=== PATIENT | male | born 1970 | race American Indian/Alaskan Native ===

== ENCOUNTER 2018-12-10 07:59 | Inpatient (IN) | payer OTHER ==
[2018-12-10] MEDS ORDERED: BABY ASPIRIN PO ONE (08:28)
[2018-12-10] MEDS ORDERED: NORCO 5/325 PO ONE (08:28)
--- NOTE | 2018-12-10 08:28 | Emergency Department Report ---
<PHILIPP MORIN A - Last Filed: 12/10/18 11:23> ED General Adult HPI - General Chief complaint: Extremity Problem,Nontraumatic Stated complaint: (R) LEG PAIN,NUMB FOOT Time Seen by Provider: 12/10/18 08:17 Source: patient Mode of arrival: Ambulatory Limitations: No Limitations - History of Present Illness Initial comments: Mr. Guaman is a pleasant 48-year-old -[place] male who comes to the ER this morning complaining of bilateral lower extremity pain but right worse than left. He also states he has some numbness and paresthesias of the lower extremity. He noticed the symptoms around 6:30 this morning. He states that he does have intermittent pain but is never this bad. Patient is ambulatory but with a limp on the right leg on admission. Past medical history hypertension Hyperlipidemia Known peripheral artery disease Patient has been being worked up by [facility]. He was sent to get dye study but his insurance would not approve it because the cost was higher than competitors. Sodium is short, he has told him he had to find somewhere else to get the studies done. This has delayed because procedures. Past surgical history none Home medications losartan statin patient states that he was never prescribed a blood thinner or aspirin. Patient does smoke and drinks occasional alcohol Primary care physician is Dr. RIVERA Location: lower extremity Severity scale (0 -10): 6 Quality: aching Consistency: constant Improves with: none Worsens with: none Associated Symptoms: denies other symptoms - Related Data Allergies Allergy/AdvReac Type Severity Reaction Status Date / Time No Known Allergies Allergy Verified 12/10/18 07:59 ED Review of Systems Comment: All other systems reviewed and negative Constitutional: denies: chills Eyes: denies: eye pain ENT: denies: throat pain Respiratory: denies: see HPI Cardiovascular: denies: palpitations Endocrine: denies: flushing Gastrointestinal: denies: abdominal pain Genitourinary: denies: urgency Musculoskeletal: as per HPI. denies: back pain Skin: denies: lesions Neurological: denies: headache Psychiatric: denies: anxiety Hematological/Lymphatic: denies: easy bleeding ED Past Medical Hx - Past Medical History Hx Hypertension: Yes Additional medical history: PAD, HPLD - Surgical History Past Surgical History?: No - Family History Family history: no significant, other (MOM AND DAD A/W NO MAJOR MED ISSUES ) - Social History Smoking Status: Current Every Day Smoker Substance Use Type: Alcohol ED Physical Exam - General Limitations: No Limitations General appearance: alert, in no apparent distress - Head Head exam: Present: atraumatic, normocephalic - Eye Eye exam: Present: normal appearance, PERRL, EOMI - ENT ENT exam: Present: mucous membranes moist - Neck Neck exam: Present: normal inspection, full ROM - Respiratory Respiratory exam: Present: normal lung sounds bilaterally - Cardiovascular Cardiovascular Exam: Present: regular rate, normal rhythm - GI/Abdominal GI/Abdominal exam: Present: soft, normal bowel sounds - Rectal Rectal exam: Present: deferred - Extremities Exam Extremities exam: Present: normal inspection - Expanded Lower Extremity Exam Right Neuro vascular tendon exam: Present: pulse deficit, abnormal cap refill, sensory deficit, extremity cold to touch, pallor. Absent: motor deficit, tendon deficit, foot drop Left Neuro vascular tendon exam: Present: pallor. Absent: motor deficit, sensory deficit, tendon deficit, extremity cold to touch - Back Exam Back exam: Present: normal inspection, full ROM - Neurological Exam Neurological exam: Present: alert, oriented X3, CN II-XII intact - Psychiatric Psychiatric exam: Present: normal affect, normal mood - Skin Skin exam: Present: warm, dry ED Course - Reevaluation(s) Reevaluation #1: 12/10/18 11:23 RUE [id number] RLE 159/97-108 LUE 138/86--99 LLE 69/43--51 ED Medical Decision Making - Lab Data Result diagrams: 12/10/18 11:02 - Radiology Data Radiology results: report reviewed, image reviewed MONOPHASIC FLOW WORSE R - Medical Decision Making RLE COOL ON EXAM LLE WARM PALPABLE DP/PT L DOPPLER WEAK FLOW DP L DRY SCALY SKIN B NAILS THICK B R REDDY- TOE PALLOR WHEN COMPARED TO LLE AND PROX RLE PALP FEMORAL RIGHT WEAK POPLIT. RIGHT [facility] HAS BEEN CALLED THEY ARE GOING TO COME AND EVAL PT AND GIVE RECS FOR CARE - Differential Diagnosis RO OCCLUSIVE DZ ED Disposition Clinical Impression: Arterial occlusion Disposition: DC-09 OP ADMIT IP TO THIS HOSP Is pt being admited?: No Does the pt Need Aspirin: No Condition: Stable Instructions: Peripheral Artery Disease (ED) Time of Disposition: 10:45 <JOYCELYN BOURNE - Last Filed: 12/10/18 14:02> ED Review of Systems ROS: Stated complaint: (R) LEG PAIN,NUMB FOOT Other details as noted in HPI ED Course Vital Signs 12/10/18 12/10/18 12/10/18 08:04 11:36 12:33 Temperature 97.8 F Pulse Rate 77 58 L Respiratory 18 18 18 Rate Blood Pressure 139/82 Blood Pressure 124/78 [Left] O2 Sat by Pulse 99 98 Oximetry ED Medical Decision Making - Lab Data Result diagrams: 12/10/18 11:02 12/10/18 11:02 - Radiology Data Patient CTA of the lower extremity shows he has arterial occlusion that is extensive. - Medical Decision Making Patient to be admitted to the hospitalist service. Surgery is present and will consult and likely perform clot removal on Thursday. Critical care attestation.: If time is entered above; I have spent that time in minutes in the direct care of this critically ill patient, excluding procedure time. ED Disposition Is pt being admited?: Yes Does the pt Need Aspirin: No Time of Disposition: 14:02
--- NOTE | 2018-12-10 11:11 | Vascular Lab Report ---
FINAL REPORT EXAM: VL ARTERIAL DUPLEX LE BILAT HISTORY: pad pain TECHNIQUE: Grayscale and color and spectral Doppler ultrasound imaging of the bilateral lower extrem ity arterial system was performed. PRIORS: None. FINDINGS: No areas of complete occlusion. Mild calcified and noncalcified atherosclerotic plaque is seen bilate rally. No aneurysm. Peak systolic velocities in cm/s below and waveform characteristics: Right: EIA: 8 monophasic VBA DEVELOPER: 25 monophasic Prox SFA: 14 monophasic DFA: 16 monophasic Mid SFA: 13 monophasic Dist SFA: 18 monophasic POP: 10 monophasic ART PROFESSOR: 4 monophasic CHRISTA: 6 monophasic DPA: 6 monophasic Left: EIA: 99 monophasic VBA DEVELOPER: 23 monophasic Prox SFA: 33 monophasic DFA: 25 monophasic Mid SFA: 36 monophasic Dist SFA: 23 monophasic POP: 25 monophasic ART PROFESSOR: 18 monophasic CHRISTA: 18 monophasic DPA: 13 monophasic IMPRESSION: Monophasic waveforms throughout and diminished velocities suggests a more proximal stenosis. Moderate bilateral peripheral arterial disease without focal stenosis in the lower extremities.
[2018-12-10 11:13] LABS: Basophils # (Auto) 0.1 K/mm3 (0.0-0.1); Basophils % (Auto) 0.7 % (0.0-1.8); Eosinophils % (Auto) 0.2 % (0.0-4.3); Hematocrit 44.4 % (35.5-45.6); Hemoglobin 15.3 gm/dl (11.8-15.2); Lymphocytes # (Auto) 1.3 K/mm3 (1.2-5.4); Lymphocytes % (Auto) 13.3 % (13.4-35.0); Mean Corpuscular HGB Conc 34 % (32-34); Mean Corpuscular Volume 89 fl (84-94); Monocytes # (Auto) 0.6 K/mm3 (0.0-0.8); Monocytes % (Auto) 6.1 % (0.0-7.3); Platelet Count 230 K/mm3 (140-440); Red Cell Distribution Width 15.3 % (13.2-15.2)
[2018-12-10 11:25] LABS: INR 0.97 (0.87-1.13)
[2018-12-10 11:26] LABS: Partial Thromboplastin Time 28.6 Sec. (24.2-36.6)
[2018-12-10 11:33] LABS: BUN/Creatinine Ratio 10; Blood Urea Nitrogen 8 mg/dL (9-20); Calcium 9.1 mg/dL (8.4-10.2); Hemolysis Index 16
[2018-12-10] MEDS ORDERED: HEPARIN/ 0.45% NACL-25,000 UNIT/500 ML 25,000 UNIT/500 ML BAG ONE (12:34)
[2018-12-10] MEDS: HEPARIN/ 0.45% NACL-25,000 UNIT/500 ML 25,000 UNIT/500 ML BAG IV SCH (13:33)
--- NOTE | 2018-12-10 14:13 | History and Physical Report ---
History of Present Illness Chief complaint: My leg is numb History of present illness: 48 YO Male with Nicotine Dependence, PAD, HLD, HTN presents to ED for evaluation. Pt states that he has experienced Bilateral leg pain, numbness, and weakness over the past 2 weeks with acutely worsening symptoms over the past 12 hours. Pt states that symptoms are worse in his right leg. Pt states that pain is 6/10, constant, worse with ambulation as well as resting. Pt states that he is unable to ambulate and walks with a limp. Pt acknowledges rest pain. Pt transported to [facility] for further care and evaluation. Pt seen and evaluated in ED and found to have RLE Ischemia with suspected arterial occlusion. Pt denies fever, chills, CP, Palpitations, NVD, Erectile Dysfunction, NVD. Vascular surgery consulted. Pt initiated on Heparin drip and admitted to medical floor. Primary care physician is Dr. RIVERA Past History Past Medical History: hypertension, hyperlipidemia, PVD Past Surgical History: No surgical history, Other (reviewed) Social history: single, smoking. denies: alcohol abuse, prescription drug abuse Family history: no significant family history (reviewed) Medications and Allergies Allergies Allergy/AdvReac Type Severity Reaction Status Date / Time No Known Allergies Allergy Verified 12/10/18 07:59 Home Medications Medication Instructions Recorded Confirmed Last Taken Type AtorvaSTATin [Lipitor] 40 mg PO QHS 12/10/18 12/10/18 12/09/18 History Losartan/Hydrochlorothiazide 1 each PO QDAY 12/10/18 12/10/18 12/09/18 History [Hyzaar 100-12.5 TAB] Active Meds: Active Medications Heparin Sodium/Sodium Chloride (Heparin/ 0.45% Nacl-25,000 Unit/500 Ml) 25,000 unit in 500 mls @ 21 mls/hr IV TITR ALESHA; Protocol Last Admin: 12/10/18 13:33 Dose: 1,050 units/hr, 21 mls/hr Documented by: Review of Systems Constitutional: no weight loss, no weight gain, no fever, no chills Ears, nose, mouth and throat: no ear pain, no ear discharge, no tinnitis, no decreased hearing, no nose pain Cardiovascular: no chest pain, no orthopnea, no palpitations, no rapid/irregular heart beat Respiratory: no cough, no cough with sputum, no excessive sputum, no hemoptysis, no shortness of breath Gastrointestinal: no abdominal pain, no nausea, no vomiting, no diarrhea, no constipation Genitourinary Male: no hematuria, no flank pain, no discharge, no urinary frequency Rectal: no pain, no incontinence, no bleeding Musculoskeletal: leg numbness/tingling, no neck stiffness, no neck pain, no shooting arm pain, no arm numbness/tingling, no low back pain Integumentary: no rash, no pruritis, no redness, no sores, no wounds Neurological: no head injury, no transient paralysis, no paralysis, no weakness, no parathesias, no numbness Psychiatric: no anxiety, no memory loss, no change in sleep habits, no sleep disturbances, no insomnia, no hypersomnia Endocrine: no cold intolerance, no heat intolerance, no polyphagia, no excessive thirst, no polydipsia, no polyuria Hematologic/Lymphatic: no easy bruising, no easy bleeding Allergic/Immunologic: no urticaria, no allergic rhinitis Exam - Constitutional Vitals: Temp Pulse Resp BP Pulse Ox 97.8 F 58 L 18 124/78 98 12/10/18 08:04 12/10/18 12:33 12/10/18 12:33 12/10/18 12:33 12/10/18 12:33 General appearance: Present: mild distress - EENT Eyes: Present: PERRL ENT: hearing intact, clear oral mucosa - Neck Neck: Present: supple, normal ROM - Respiratory Respiratory effort: normal Respiratory: bilateral: CTA - Cardiovascular Heart Sounds: Present: S1 & S2. Absent: rub, click - Extremities Extremities: abnormal Extremity abnormal: cyanosis, pulses diminished Peripheral Pulses: abnormal - Abdominal General gastrointestinal: Present: soft, non-tender, non-distended, normal bowel sounds Male genitourinary: Present: normal - Integumentary Integumentary: Present: clear, warm, dry - Musculoskeletal Musculoskeletal: generalized weakness - Psychiatric Psychiatric: appropriate mood/affect, intact judgment & insight - Neurologic Neurologic: CNII-XII intact, moves all extremities Results - Labs CBC & Chem 7: 12/10/18 11:02 12/10/18 11:02 Labs: Abnormal lab results 12/10/18 12/10/18 Range/Units 11:02 11:02 Hgb 15.3 H (11.8-15.2) gm/dl RDW 15.3 H (13.2-15.2) % Lymph % (Auto) 13.3 L (13.4-35.0) % Seg Neutrophils % 79.7 H (40.0-70.0) % Seg Neutrophils # 8.0 H (1.8-7.7) K/mm3 Sodium 133 L (137-145) mmol/L BUN 8 L (9-20) mg/dL Glucose 111 H (75-100) mg/dL Assessment and Plan - Patient Problems (1) Arterial occlusion Current Visit: Yes Status: Acute Plan to address problem: Vascular surgery consulted, heparin drip, pain control, supportive care, BLE Duplex, CTA abdomen. (2) Nicotine dependence Current Visit: Yes Status: Acute Qualifiers: Nicotine product type: cigarettes Substance use status: in withdrawal Qualified Code(s): F17.213 - Nicotine dependence, cigarettes, with withdrawal Plan to address problem: smoking cessation counseling, supportive care. (3) PAD (peripheral artery disease) Current Visit: Yes Status: Acute Plan to address problem: therapeutic anticoagulation with heparin drip, (4) DVT prophylaxis Current Visit: Yes Status: Acute Plan to address problem: heparin drip
[2018-12-10] MEDS ORDERED: ZOFRAN IV PRN (14:16)
[2018-12-10] MEDS ORDERED: PROVENTIL IH PRN (14:16)
[2018-12-10] MEDS ORDERED: TYLENOL PO PRN (14:16)
--- NOTE | 2018-12-10 14:31 | Cat Scan Report ---
FINAL REPORT EXAM: CT ANGIO ABD/FEMORAL ABD AORTA HISTORY: right foot cool, intermittent numbness TECHNIQUE: CTA of the abdomen, pelvis and lower extremities through the toes was performed after the administration of intravenous contrast. Rotating MIPS were included. Reconstructions were included in the coronal and sagittal planes. PRIORS: Lower extremity arterial Doppler from earlier today. FINDINGS: Lower thorax: Calcified bilateral lower lobe granulomas are seen. The visualized portions of the hear t are normal. Liver: The liver is normal in attenuation. No intrahepatic biliary duct dilation. Several focal hyper attenuating lesions are seen within the right hepatic lobe. One lesion measures 5 millimeters on ser ies 2, image 22. The smaller lesion measures 3 millimeters on series 2, image 21. The other lesion me asures 6 millimeters on series 2, image 31. Gallbladder/ biliary system: No cholelithiasis. The common bile duct appears nondilated. Spleen: No splenic lesions are seen. Pancreas: No pancreatic lesions are seen. No pancreatic duct dilation. Kidneys: No renal masses, cysts or hydronephrosis. Adrenal glands: No adrenal masses. Vasculature: There is complete occlusion of the infrarenal abdominal aorta beginning just distal to t he take-off of the inferior mesenteric artery extending to the common, internal and external iliac ar teries. There is reconstitution of flow in the distal internal iliac arteries as well as common femor al arteries. The common femoral arteries are fed from collaterals from the inferior epigastric arteri es. The internal iliac arteries are fed via collaterals from the rectal circulation. Mild calcified a nd noncalcified atherosclerotic plaque is seen within the bilateral lower extremity arterial systems. The distal aspect of the right anterior tibial artery is not well seen, possibly secondary to slow f low versus occlusion. The left lower extremity vessels are patent. There are 2 right renal arteries. The celiac axis, SMA, GURVINDER and renal arteries are patent. Lymph nodes: No enlarged lymph nodes are seen in the abdomen or pelvis. Bowel, mesentery, peritoneum: No bowel obstruction. No free fluid or free air. The visualized portion s of the appendix demonstrate no evidence of inflammation. No colonic diverticulosis. There is submuc osal fat within the transverse and ascending colon. Urinary bladder: No filling defects are seen. Pelvis: The left testicle appears absent. The remainder of the pelvic anatomy appears normal. Abdominal wall: There is a small fat containing umbilical hernia. There is a small fat containing lef t inguinal hernia. Bones: Mild degenerative changes are seen in the spine. Lower extremities: No soft tissue abnormality. Degenerative changes of the right 1st MTP joint are se en. IMPRESSION: 1. 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 2. Occlusion or slow flow within the mid to distal right anterior tibial artery. 3. Nonspecific right hepatic lesions may represent flash fill hemangiomas versus other solid neoplasm s. Consider further evaluation with dedicated hepatic CT or MRI to better characterize these lesions. 4. Submucosal fat in the ascending and transverse colon can be seen in chronic or prior inflammation or infection. Findings were discussed with HUMERA Castellon at 11:25 a.m. PST on 12/10/2018.
--- NOTE | 2018-12-10 14:51 | Consultation ---
History of Present Illness - Reason for Consult Consult date: 12/10/18 left leg ischemia Requesting physician: PHILIPP MORIN - History of Present Illness 48-year-old gentleman that came to ER complaining off right leg numbness and coolness. She is known to our practice and came in recently with complaints of left leg claudication. He had arterial duplex done in our office that showed patent and good flow in the right lower extremity and monophasic flow in the left leg. At this time he came to ER and do the proximal was performed at this time showing decreased flow in the right side also. Vascular surgery was consulted. He was then sent for CT angiogram of aorta was bilateral lower extremity runoff. This showed infrarenal aortic occlusion, thrombosis. Patient was placed on heparin drip. Past History Past Medical History: hypertension, hyperlipidemia, PVD, other (asymptomatic carotid disease) Past Surgical History: No surgical history Social history: smoking (cigars) Family history: no significant family history Medications and Allergies Allergies Allergy/AdvReac Type Severity Reaction Status Date / Time No Known Allergies Allergy Verified 12/10/18 07:59 Active Meds: Active Medications Acetaminophen (Tylenol) 650 mg PO Q4H PRN PRN Reason: Pain MILD(1-3)/Fever >100.5/LUGO Albuterol (Proventil) 2.5 mg IH Q4HRT PRN PRN Reason: Shortness Of Breath Famotidine (Pepcid) 20 mg PO BID ALESHA Heparin Sodium/Sodium Chloride (Heparin/ 0.45% Nacl-25,000 Unit/500 Ml) 25,000 unit in 500 mls @ 21 mls/hr IV TITR AELSHA; Protocol Last Admin: 12/10/18 13:33 Dose: 1,050 units/hr, 21 mls/hr Documented by: Ondansetron HCl (Zofran) 4 mg IV Q8H PRN PRN Reason: Nausea And Vomiting Oxycodone/Acetaminophen (Percocet 5/325) 1 tab PO Q6H PRN PRN Reason: Pain, Moderate (4-6) Sodium Chloride (Sodium Chloride Flush Syringe 10 Ml) 10 ml IV BID ALESHA Sodium Chloride (Sodium Chloride Flush Syringe 10 Ml) 10 ml IV PRN PRN PRN Reason: LINE FLUSH Review of Systems All systems: negative (mentioned in HPI) Exam - Physical Exam Narrative exam: Patient has coolness of the lower part of the right leg. Left leg is warm. Pulses are not palpable distally, no palpable popliteal or femoral pulses. Both feet are sensory and motor intact. - Constitutional Vitals: Temp Pulse Resp BP Pulse Ox 97.8 F 58 L 18 124/78 98 12/10/18 08:04 12/10/18 12:33 12/10/18 12:33 12/10/18 12:33 12/10/18 12:33 Peripheral Pulses: abnormal Results - Labs CBC & Chem 7: 12/10/18 11:02 12/10/18 11:02 Labs: Abnormal lab results 12/10/18 12/10/18 Range/Units 11:02 11:02 Hgb 15.3 H (11.8-15.2) gm/dl RDW 15.3 H (13.2-15.2) % Lymph % (Auto) 13.3 L (13.4-35.0) % Seg Neutrophils % 79.7 H (40.0-70.0) % Seg Neutrophils # 8.0 H (1.8-7.7) K/mm3 Sodium 133 L (137-145) mmol/L BUN 8 L (9-20) mg/dL Glucose 111 H (75-100) mg/dL - Imaging and Cardiology CT scan - abdomen: report reviewed (occlusion of the infrarenal aorta) Assessment and Plan Occlusion/thrombosis of the infrarenal aorta Acute right leg ischemia [place]arton IIa Plan: Anticoagulation with Heparin drip Cardiology consultation in surgical preparation Aortobifemoral bypass risks and benefits discussed with patient in detail
[2018-12-10] MEDS: SODIUM CHLORIDE FLUSH SYRINGE 10 ML IV SCH (22:21)
[2018-12-10] MEDS: PEPCID PO SCH (22:21)
[2018-12-11 05:36] LABS: BUN/Creatinine Ratio 11; Blood Urea Nitrogen 8 mg/dL (9-20); Calcium 8.6 mg/dL (8.4-10.2); Hemolysis Index 7
[2018-12-11] MEDS: SODIUM CHLORIDE FLUSH SYRINGE 10 ML IV SCH ×2 (10:25→21:07)
[2018-12-11] MEDS: PEPCID PO SCH ×2 (10:25→21:07)
[2018-12-11] MEDS: HEPARIN/ 0.45% NACL-25,000 UNIT/500 ML 25,000 UNIT/500 ML BAG IV SCH (13:11)
--- NOTE | 2018-12-11 13:26 | Progress Note ---
Assessment and Plan Assessment and plan: 48-year-old man who presented with bilateral lower extremity pain worse on the right, is also complaining of numbness and paresthesias of both lower extremities. The symptoms began acutely prior to patient's. Hospital course the patient was found to have occlusion/thrombosis of the infrarenal aorta. He has been seen by vascular surgeon. He is currently being anticoagulated with heparin drip, cardiology consultation has been done for cardiac risk stratification and optimization prior to surgery., The patient is planned for aortobifemoral bypass, -Has been counseled about tobacco cessation, nicotine patches as needed Diagnoses Occlusion/thrombosis of the infrarenal aorta Nicotine dependence History Interval history: Review of systems Constitutional: No fevers, no malaise, no joint pains CVS: No chest pain, no orthopnea, no dyspnea on exertion, no pedal edema GI: No abdominal pain, no diarrhea, no vomiting, no constipation Respiratory: No shortness of breath, no wheezing, no coughing Hospitalist Physical - Physical exam Narrative exam: General.: Appears well, no distress, nontoxic HEENT: Moist mucous membranes, extraocular muscles intact, no lymphadenopathy Neck: supple Cardiac: S1-S2 heard Lungs: clear to auscultation bilaterally Abdomen: soft , nontender, nondistended, bowel sounds positive Extremities: No gross edema Skin: no rash or lesions Neurologic: no gross focal deficits Psych: calm, and cooperative - Constitutional Vitals: Temp Pulse Resp BP Pulse Ox 98.2 F 68 15 128/77 97 12/11/18 13:05 12/11/18 13:05 12/11/18 13:05 12/11/18 13:05 12/11/18 13:05 General appearance: Present: mild distress Results - Labs CBC & Chem 7: 12/10/18 11:02 12/11/18 04:40 Labs: Laboratory Last Values WBC 10.0 K/mm3 (4.5-11.0) 12/10/18 11:02 RBC 5.00 M/mm3 (3.65-5.03) 12/10/18 11:02 Hgb 15.3 gm/dl (11.8-15.2) H 12/10/18 11:02 Hct 44.4 % (35.5-45.6) 12/10/18 11:02 MCV 89 fl (84-94) 12/10/18 11:02 MCH 31 pg (28-32) 12/10/18 11:02 MCHC 34 % (32-34) 12/10/18 11:02 RDW 15.3 % (13.2-15.2) H 12/10/18 11:02 Plt Count 230 K/mm3 (140-440) 12/10/18 11:02 Lymph % (Auto) 13.3 % (13.4-35.0) L 12/10/18 11:02 [place] % (Auto) 6.1 % (0.0-7.3) 12/10/18 11:02 Eos % (Auto) 0.2 % (0.0-4.3) 12/10/18 11:02 Baso % (Auto) 0.7 % (0.0-1.8) 12/10/18 11:02 Lymph # 1.3 K/mm3 (1.2-5.4) 12/10/18 11:02 [place] # 0.6 K/mm3 (0.0-0.8) 12/10/18 11:02 Eos # 0.0 K/mm3 (0.0-0.4) 12/10/18 11:02 Baso # 0.1 K/mm3 (0.0-0.1) 12/10/18 11:02 Seg Neutrophils % 79.7 % (40.0-70.0) H 12/10/18 11:02 Seg Neutrophils # 8.0 K/mm3 (1.8-7.7) H 12/10/18 11:02 PT 13.5 Sec. (12.2-14.9) 12/10/18 11:02 INR 0.97 (0.87-1.13) 12/10/18 11:02 APTT 28.6 Sec. (24.2-36.6) 12/10/18 11:02 Heparin Anti-Xa Level 0.39 U.I./ml (0.3-0.7) 12/11/18 04:40 Sodium 137 mmol/L (137-145) 12/11/18 04:40 Potassium 3.6 mmol/L (3.6-5.0) 12/11/18 04:40 Chloride 101.9 mmol/L (98-107) 12/11/18 04:40 Carbon Dioxide 25 mmol/L (22-30) 12/11/18 04:40 Anion Gap 14 mmol/L 12/11/18 04:40 BUN 8 mg/dL (9-20) L 12/11/18 04:40 Creatinine 0.7 mg/dL (0.8-1.5) L 12/11/18 04:40 Estimated GFR > 60 ml/min 12/11/18 04:40 BUN/Creatinine Ratio 11 % 12/11/18 04:40 Glucose 135 mg/dL (75-100) H 12/11/18 04:40 Calcium 8.6 mg/dL (8.4-10.2) 12/11/18 04:40 Nutrition/Malnutrition Assess - Dietary Evaluation Nutrition/Malnutrition Findings: Nutrition Notes Start: 12/11/18 11:02 Freq: Status: Active Protocol: Document 12/11/18 11:03 MARIKA (Rec: 12/11/18 11:03 MARIKA [email or web address]) Nutrition Notes Need for Assessment generated from: forestry scientist Initial or Follow up Brief Note Subjective/Other Information Pt screened for skin risk, however, Alphonso score is 20. Will assess upon further consult or LOS.
--- NOTE | 2018-12-11 15:29 | Progress Note ---
Assessment and Plan 48 year old male with acute limb ischemia improving on heparin drip. Aortobifemoral bypass this upcoming week. Continue heparin drip. Cardiology consult needed prior to ABF. Subjective Date of service: 12/11/18 Interval history: Right foot sensation intact, motor intact, no pain, no rest pain, no wounds, right leg cool. Had pain with loss of sensation which improved. On heparin drip. Nonpalpable bilateral pedal pulses. CTA demonstrates aortic occlusion and bilateral IGLESIA and EIA occlusion. Thombus in the right mid CHRISTA and TP trunk. Objective - Constitutional Vitals: Vital Signs - 12hr 12/11/18 12/11/18 12/11/18 05:51 10:00 13:05 Temperature 98.4 F 98.2 F Pulse Rate 62 68 Respiratory 20 15 Rate Blood Pressure 132/84 128/77 O2 Sat by Pulse 99 99 97 Oximetry General appearance: Present: no acute distress - EENT Eyes: EOM intact ENT: hearing intact - Respiratory Respiratory effort: normal Extremity abnormal: other (see S) - Gastrointestinal General gastrointestinal: Present: soft - Psychiatric Psychiatric: appropriate mood/affect, cooperative - Labs CBC & Chem 7: 12/10/18 11:02 12/11/18 04:40 Labs: Abnormal lab results 12/10/18 12/11/18 Range/Units 20:09 04:40 Heparin Anti-Xa Level 0.27 L (0.3-0.7) U.I./ml BUN 8 L (9-20) mg/dL Creatinine 0.7 L (0.8-1.5) mg/dL Glucose 135 H (75-100) mg/dL Medications & Allergies - Medications Allergies/Adverse Reactions: Allergies No Known Allergies Allergy (Verified 12/10/18 07:59) Home Medications: Home Medications Medication Instructions Recorded Confirmed Last Taken Type AtorvaSTATin [Lipitor] 40 mg PO QHS 12/10/18 12/10/18 12/09/18 History Losartan/Hydrochlorothiazide 1 each PO QDAY 12/10/18 12/10/18 12/09/18 History [Hyzaar 100-12.5 TAB] Active Medications: Generic Name Dose Route Start Last Admin Trade Name Freq PRN Reason Stop Dose Admin Acetaminophen 650 mg 12/10/18 14:16 Tylenol PO Q4H PRN Pain MILD(1-3)/Fever >100.5/LUGO Albuterol 2.5 mg 12/10/18 14:16 Proventil IH Q4HRT PRN Shortness Of Breath Famotidine 20 mg 12/10/18 22:00 12/11/18 10:25 Pepcid PO 20 mg BID ALESHA Administration Heparin Sodium/Sodium Chloride 25,000 unit in 500 mls @ 21 mls/hr 12/10/18 13:00 12/11/18 13:11 Heparin/ 0.45% Nacl-25,000 Unit/500 Ml IV 1,100 units/hr TITR ALESHA 22 mls/hr Administration Protocol 1,050 UNITS/HR Ondansetron HCl 4 mg 12/10/18 14:16 Zofran IV Q8H PRN Nausea And Vomiting Oxycodone/Acetaminophen 1 tab 12/10/18 14:16 Percocet 5/325 PO Q6H PRN Pain, Moderate (4-6) Sodium Chloride 10 ml 12/10/18 22:00 12/11/18 10:25 Sodium Chloride Flush Syringe 10 Ml IV 10 ml BID ALESHA Administration Sodium Chloride 10 ml 12/10/18 14:16 Sodium Chloride Flush Syringe 10 Ml IV PRN PRN LINE FLUSH
--- NOTE | 2018-12-11 19:48 | Cat Scan Report ---
FINAL REPORT EXAM: CT ANGIO CHEST HISTORY: aortic thrombus TECHNIQUE: CT chest CT angiogram with reconstructions PRIORS: None. FINDINGS: Central pulmonary vasculature demonstrates no filling defects. No evidence of mediastinal pathologic lymph node enlargement multiple bilateral hilar calcifications noted there are scattered calcified granuloma noted bilaterally. Heart and great vessels are unremarkable. Aorta is normal in caliber. No evidence for aortic dissecti on or thrombosis. No focal pulmonary infiltrate identified. No pleural fluid collection seen. No acute pulmonary abnor mality noted. Visualized portion of the upper abdomen demonstrates no acute change. IMPRESSION: Normal appearance of the thoracic aorta. Evidence for remote granulomatous disease. No acute findings in the chest
[2018-12-12] MEDS: PEPCID PO SCH ×2 (09:55→22:12)
[2018-12-12] MEDS: SODIUM CHLORIDE FLUSH SYRINGE 10 ML IV SCH ×2 (09:55→22:13)
--- NOTE | 2018-12-12 12:02 | Consultation ---
Past History Past Medical History: hypertension, hyperlipidemia, PVD Past Surgical History: No surgical history, Other (reviewed) Social history: single, smoking. denies: alcohol abuse, prescription drug abuse Family history: no significant family history (reviewed) Medications and Allergies Allergies Allergy/AdvReac Type Severity Reaction Status Date / Time No Known Allergies Allergy Verified 12/10/18 07:59 Home Medications Medication Instructions Recorded Confirmed Last Taken Type AtorvaSTATin [Lipitor] 40 mg PO QHS 12/10/18 12/10/18 12/09/18 History Losartan/Hydrochlorothiazide 1 each PO QDAY 12/10/18 12/10/18 12/09/18 History [Hyzaar 100-12.5 TAB] Active Meds: Active Medications Acetaminophen (Tylenol) 650 mg PO Q4H PRN PRN Reason: Pain MILD(1-3)/Fever >100.5/LUGO Albuterol (Proventil) 2.5 mg IH Q4HRT PRN PRN Reason: Shortness Of Breath Famotidine (Pepcid) 20 mg PO BID [facility] Last Admin: 12/12/18 09:55 Dose: 20 mg Documented by: Heparin Sodium/Sodium Chloride (Heparin/ 0.45% Nacl-25,000 Unit/500 Ml) 25,000 unit in 500 mls @ 21 mls/hr IV TITR [facility]; Protocol Last Titration: 12/12/18 05:49 Dose: 1,100 units/hr, 22 mls/hr Documented by: Ondansetron HCl (Zofran) 4 mg IV Q8H PRN PRN Reason: Nausea And Vomiting Oxycodone/Acetaminophen (Percocet 5/325) 1 tab PO Q6H PRN PRN Reason: Pain, Moderate (4-6) Sodium Chloride (Sodium Chloride Flush Syringe 10 Ml) 10 ml IV BID [facility] [place] Last Admin: 12/12/18 09:55 Dose: 10 ml Documented by: Sodium Chloride (Sodium Chloride Flush Syringe 10 Ml) 10 ml IV PRN PRN PRN Reason: LINE FLUSH Physical Examination Vital Signs Temp Pulse Resp BP Pulse Ox 97.8 F 77 18 139/82 99 12/10/18 08:04 12/10/18 08:04 12/10/18 08:04 12/10/18 08:04 12/10/18 08:04 Results 12/10/18 11:02 12/11/18 04:40 Assessment and Plan full consult dictated thx
--- NOTE | 2018-12-12 13:22 | Progress Note ---
Assessment and Plan Assessment and plan: 48-year-old man who presented with bilateral lower extremity pain worse on the right, is also complaining of numbness and paresthesias of both lower extremities. The symptoms began acutely prior to patient's. Hospital course the patient was found to have occlusion/thrombosis of the infrarenal aorta. He has been seen by vascular surgeon. He is currently being anticoagulated with heparin drip, cardiology consultation has been done for cardiac risk stratification and optimization prior to surgery., The patient is planned for aortobifemoral bypass, -Has been counseled about tobacco cessation, nicotine patches as needed Diagnoses Occlusion/thrombosis of the infrarenal aorta Nicotine dependence htn hld History Interval history: Review of systems Constitutional: No fevers, no malaise, no joint pains CVS: No chest pain, no orthopnea, no dyspnea on exertion, no pedal edema GI: No abdominal pain, no diarrhea, no vomiting, no constipation Respiratory: No shortness of breath, no wheezing, no coughing Hospitalist Physical - Physical exam Narrative exam: General.: Appears well, no distress, nontoxic HEENT: Moist mucous membranes, extraocular muscles intact, no lymphadenopathy Neck: supple Cardiac: S1-S2 heard Lungs: clear to auscultation bilaterally Abdomen: soft , nontender, nondistended, bowel sounds positive Extremities: No gross edema Skin: no rash or lesions Neurologic: no gross focal deficits Psych: calm, and cooperative - Constitutional Vitals: Temp Pulse Resp BP Pulse Ox 98.6 F 71 16 144/87 93 12/12/18 12:21 12/12/18 12:21 12/12/18 12:21 12/12/18 12:21 12/12/18 12:21 General appearance: Present: no acute distress Results - Labs CBC & Chem 7: 12/10/18 11:02 12/11/18 04:40 Labs: Laboratory Last Values WBC 10.0 K/mm3 (4.5-11.0) 12/10/18 11:02 RBC 5.00 M/mm3 (3.65-5.03) 12/10/18 11:02 Hgb 15.3 gm/dl (11.8-15.2) H 12/10/18 11:02 Hct 44.4 % (35.5-45.6) 12/10/18 11:02 MCV 89 fl (84-94) 12/10/18 11:02 MCH 31 pg (28-32) 12/10/18 11:02 MCHC 34 % (32-34) 12/10/18 11:02 RDW 15.3 % (13.2-15.2) H 12/10/18 11:02 Plt Count 230 K/mm3 (140-440) 12/10/18 11:02 Lymph % (Auto) 13.3 % (13.4-35.0) L 12/10/18 11:02 [place] % (Auto) 6.1 % (0.0-7.3) 12/10/18 11:02 Eos % (Auto) 0.2 % (0.0-4.3) 12/10/18 11:02 Baso % (Auto) 0.7 % (0.0-1.8) 12/10/18 11:02 Lymph # 1.3 K/mm3 (1.2-5.4) 12/10/18 11:02 [place] # 0.6 K/mm3 (0.0-0.8) 12/10/18 11:02 Eos # 0.0 K/mm3 (0.0-0.4) 12/10/18 11:02 Baso # 0.1 K/mm3 (0.0-0.1) 12/10/18 11:02 Seg Neutrophils % 79.7 % (40.0-70.0) H 12/10/18 11:02 Seg Neutrophils # 8.0 K/mm3 (1.8-7.7) H 12/10/18 11:02 PT 13.5 Sec. (12.2-14.9) 12/10/18 11:02 INR 0.97 (0.87-1.13) 12/10/18 11:02 APTT 28.6 Sec. (24.2-36.6) 12/10/18 11:02 Heparin Anti-Xa Level 0.44 U.I./ml (0.3-0.7) 12/12/18 03:25 Sodium 137 mmol/L (137-145) 12/11/18 04:40 Potassium 3.6 mmol/L (3.6-5.0) 12/11/18 04:40 Chloride 101.9 mmol/L (98-107) 12/11/18 04:40 Carbon Dioxide 25 mmol/L (22-30) 12/11/18 04:40 Anion Gap 14 mmol/L 12/11/18 04:40 BUN 8 mg/dL (9-20) L 12/11/18 04:40 Creatinine 0.7 mg/dL (0.8-1.5) L 12/11/18 04:40 Estimated GFR > 60 ml/min 12/11/18 04:40 BUN/Creatinine Ratio 11 % 12/11/18 04:40 Glucose 135 mg/dL (75-100) H 12/11/18 04:40 Calcium 8.6 mg/dL (8.4-10.2) 12/11/18 04:40 Nutrition/Malnutrition Assess - Dietary Evaluation Nutrition/Malnutrition Findings: Nutrition Notes Start: 12/11/18 11:02 Freq: Status: Active Protocol: Document 12/11/18 11:03 MARIKA (Rec: 12/11/18 11:03 MARIKA [id number]) Nutrition Notes Need for Assessment generated from: seismographer Initial or Follow up Brief Note Subjective/Other Information Pt screened for skin risk, however, Alphonso score is 20. Will assess upon further consult or LOS.
[2018-12-12] MEDS: HEPARIN/ 0.45% NACL-25,000 UNIT/500 ML 25,000 UNIT/500 ML BAG IV SCH (13:27)
[2018-12-12] MEDS: ASPIRIN PO SCH (14:59)
--- NOTE | 2018-12-12 15:11 | Consultation ---
CARDIOLOGY CONSULTATION REFERRING PHYSICIAN: Madhu Pan MD REASON FOR CONSULTATION: Advice and opinion regarding preoperative risk stratification. HISTORY OF PRESENT ILLNESS: The patient is a pleasant 48-year-old -[place] gentleman with a history of tobacco abuse, peripheral arterial disease, hyperlipidemia, hypertension, presents with bilateral leg pain, happened worse over the last 2 weeks. Denies any chest pain. Does have shortness of breath from time to time. No syncope or presyncope. PRIMARY CARE PHYSICIAN: ____ seen on the 3rd floor. Denies any syncope or presyncope. He has not had a cardiac workup in years. PAST MEDICAL HISTORY: As aforementioned. Inpatient and outpatient medications reviewed. REVIEW OF SYSTEMS: As per HPI. He denies any leg pain today, feels better overall. PHYSICAL EXAMINATION: GENERAL: Tele reveals sinus rhythm in the 60's and 70's. VITAL SIGNS: Blood pressure is 130/80, he is afebrile. O2 sats 98% on room air. HEENT: Sclerae are icteric. NECK: Supple, no masses, no JVD. CHEST: Clear to auscultation bilaterally. Good air movement. CARDIOVASCULAR: Regular S1, S2. ABDOMEN: Soft, nontender, nondistended. Normoactive bowel sounds in 4 quadrants. No mass or bruits. EXTREMITIES: No cyanosis, clubbing, edema. Good peripheral pulses. SKIN: Intact. No rashes. LABORATORY DATA: BMP is normal. CBC is unremarkable. Coags are normal. The patient is on a heparin drip. Abdominal CTA from 12/10/2018 reveals complete occlusion of the mid to distal aorta, common iliac arteries. Reconstitution of flow distally, likely represented a chronic finding. His EKG reveals sinus bradycardia, right bundle branch block, nonspecific ST-T wave changes. PLAN: At this point, given his history of multivessel vascular disease, aortic, iliac and carotid, tobacco abuse, abnormal EKG, sedentary lifestyle. We will proceed with cardiac workup in anticipation of significant aortic surgery. Check echocardiogram and a nuclear stress test. Telemetry has been unremarkable. Add antiplatelet therapy with aspirin and Heparin therapy. We will follow along with you. Thank you for this consultation. JOB# [id number] SBM/NTS
--- NOTE | 2018-12-12 17:33 | Progress Note ---
Assessment and Plan 48 year old male with acute limb ischemia improving on heparin drip. At this time, both legs are warm. Aortobifemoral bypass this upcoming week. Continue heparin drip. Cardiology consult needed prior to ABF. Awaiting clearance. Subjective Date of service: 12/12/18 Interval history: Right foot sensation intact, motor intact, no pain, no rest pain, no wounds. Right leg now warm. Both legs warm. On heparin drip. Nonpalpable bilateral pedal pulses. CTA demonstrates aortic occlusion and bilateral IGLESIA and EIA occlusion. Thombus in the right mid CHRISTA and TP trunk. Objective - Constitutional Vitals: Vital Signs - 12hr 12/12/18 12/12/18 12/12/18 05:43 09:38 10:00 Temperature 98.8 F Pulse Rate 56 L Pulse Rate [ 74 Apical] Respiratory 18 Rate Blood Pressure 132/85 O2 Sat by Pulse 99 96 Oximetry 12/12/18 12/12/18 12:21 16:47 Temperature 98.6 F 98.9 F Pulse Rate 71 78 Pulse Rate [ Apical] Respiratory 16 16 Rate Blood Pressure 144/87 133/88 O2 Sat by Pulse 93 98 Oximetry General appearance: Present: no acute distress - EENT Eyes: EOM intact ENT: hearing intact - Respiratory Respiratory effort: normal Extremities: abnormal (see subjective) - Gastrointestinal General gastrointestinal: Present: soft - Psychiatric Psychiatric: appropriate mood/affect, cooperative - Labs CBC & Chem 7: 12/10/18 11:02 12/11/18 04:40 Medications & Allergies - Medications Allergies/Adverse Reactions: Allergies No Known Allergies Allergy (Verified 12/10/18 07:59) Home Medications: Home Medications Medication Instructions Recorded Confirmed Last Taken Type AtorvaSTATin [Lipitor] 40 mg PO QHS 12/10/18 12/10/18 12/09/18 History Losartan/Hydrochlorothiazide 1 each PO QDAY 12/10/18 12/10/18 12/09/18 History [Hyzaar 100-12.5 TAB] Active Medications: Generic Name Dose Route Start Last Admin Trade Name Freq PRN Reason Stop Dose Admin Acetaminophen 650 mg 12/10/18 14:16 Tylenol PO Q4H PRN Pain MILD(1-3)/Fever >100.5/LUGO Albuterol 2.5 mg 12/10/18 14:16 Proventil IH Q4HRT PRN Shortness Of Breath Aspirin 325 mg 12/12/18 14:00 12/12/18 14:59 Aspirin PO 325 mg QDAY ALESHA Administration Famotidine 20 mg 12/10/18 22:00 12/12/18 09:55 Pepcid PO 20 mg BID ALESHA Administration Heparin Sodium/Sodium Chloride 25,000 unit in 500 mls @ 21 mls/hr 12/10/18 13:00 12/12/18 13:27 Heparin/ 0.45% Nacl-25,000 Unit/500 Ml IV 1,100 units/hr TITR ALESHA 22 mls/hr Administration Protocol 1,050 UNITS/HR Ondansetron HCl 4 mg 12/10/18 14:16 Zofran IV Q8H PRN Nausea And Vomiting Oxycodone/Acetaminophen 1 tab 12/10/18 14:16 Percocet 5/325 PO Q6H PRN Pain, Moderate (4-6) Sodium Chloride 10 ml 12/10/18 22:00 12/12/18 09:55 Sodium Chloride Flush Syringe 10 Ml IV 10 ml BID ALESHA Administration Sodium Chloride 10 ml 12/10/18 14:16 Sodium Chloride Flush Syringe 10 Ml IV PRN PRN LINE FLUSH
--- NOTE | 2018-12-13 09:00 | Progress Note ---
Assessment and Plan Assessment and plan: 48-year-old man who presented with bilateral lower extremity pain worse on the right, is also complaining of numbness and paresthesias of both lower extremities. The symptoms began acutely prior to patient's. Hospital course the patient was found to have occlusion/thrombosis of the infrarenal aorta. He has been seen by vascular surgeon. He is currently being anticoagulated with heparin drip, he was seen by cardiology, had echo and stress test which were negative, per cardiology he is optimized for planned vascular surgery, The patient is planned for aortobifemoral bypass, -Has been counseled about tobacco cessation, nicotine patches as needed -optimized meds for chronic conditions Diagnoses Occlusion/thrombosis of the infrarenal aorta Nicotine dependence htn hld History Interval history: Review of systems Constitutional: No fevers, no malaise, no joint pains CVS: No chest pain, no orthopnea, no dyspnea on exertion, no pedal edema GI: No abdominal pain, no diarrhea, no vomiting, no constipation Respiratory: No shortness of breath, no wheezing, no coughing Hospitalist Physical - Physical exam Narrative exam: General.: Appears well, no distress, nontoxic HEENT: Moist mucous membranes, extraocular muscles intact, no lymphadenopathy Neck: supple Cardiac: S1-S2 heard Lungs: clear to auscultation bilaterally Abdomen: soft , nontender, nondistended, bowel sounds positive Extremities: No gross edema Skin: no rash or lesions Neurologic: no gross focal deficits Psych: calm, and cooperative - Constitutional Vitals: Temp Pulse Resp BP Pulse Ox 98.3 F 73 18 139/89 98 12/13/18 05:37 12/13/18 05:37 12/13/18 05:37 12/13/18 05:37 12/13/18 05:37 General appearance: Present: no acute distress Results - Labs CBC & Chem 7: 12/13/18 13:21 12/11/18 04:40 Labs: Laboratory Last Values WBC 10.0 K/mm3 (4.5-11.0) 12/10/18 11:02 RBC 5.00 M/mm3 (3.65-5.03) 12/10/18 11:02 Hgb 15.3 gm/dl (11.8-15.2) H 12/10/18 11:02 Hct 44.4 % (35.5-45.6) 12/10/18 11:02 MCV 89 fl (84-94) 12/10/18 11:02 MCH 31 pg (28-32) 12/10/18 11:02 MCHC 34 % (32-34) 12/10/18 11:02 RDW 15.3 % (13.2-15.2) H 12/10/18 11:02 Plt Count 230 K/mm3 (140-440) 12/10/18 11:02 Lymph % (Auto) 13.3 % (13.4-35.0) L 12/10/18 11:02 [place] % (Auto) 6.1 % (0.0-7.3) 12/10/18 11:02 Eos % (Auto) 0.2 % (0.0-4.3) 12/10/18 11:02 Baso % (Auto) 0.7 % (0.0-1.8) 12/10/18 11:02 Lymph # 1.3 K/mm3 (1.2-5.4) 12/10/18 11:02 [place] # 0.6 K/mm3 (0.0-0.8) 12/10/18 11:02 Eos # 0.0 K/mm3 (0.0-0.4) 12/10/18 11:02 Baso # 0.1 K/mm3 (0.0-0.1) 12/10/18 11:02 Seg Neutrophils % 79.7 % (40.0-70.0) H 12/10/18 11:02 Seg Neutrophils # 8.0 K/mm3 (1.8-7.7) H 12/10/18 11:02 PT 13.5 Sec. (12.2-14.9) 12/10/18 11:02 INR 0.97 (0.87-1.13) 12/10/18 11:02 APTT 28.6 Sec. (24.2-36.6) 12/10/18 11:02 Heparin Anti-Xa Level 0.43 U.I./ml (0.3-0.7) 12/13/18 04:52 Sodium 137 mmol/L (137-145) 12/11/18 04:40 Potassium 3.6 mmol/L (3.6-5.0) 12/11/18 04:40 Chloride 101.9 mmol/L (98-107) 12/11/18 04:40 Carbon Dioxide 25 mmol/L (22-30) 12/11/18 04:40 Anion Gap 14 mmol/L 12/11/18 04:40 BUN 8 mg/dL (9-20) L 12/11/18 04:40 Creatinine 0.7 mg/dL (0.8-1.5) L 12/11/18 04:40 Estimated GFR > 60 ml/min 12/11/18 04:40 BUN/Creatinine Ratio 11 % 12/11/18 04:40 Glucose 135 mg/dL (75-100) H 12/11/18 04:40 Calcium 8.6 mg/dL (8.4-10.2) 12/11/18 04:40 Troponin T < 0.010 ng/mL (0.00-0.029) 12/13/18 07:13 Nutrition/Malnutrition Assess - Dietary Evaluation Nutrition/Malnutrition Findings: Nutrition Notes Start: 12/11/18 11:02 Freq: Status: Active Protocol: Document 12/11/18 11:03 MARIKA (Rec: 12/11/18 11:03 MARIKA [id number]) Nutrition Notes Need for Assessment generated from: vice president digital strategist Initial or Follow up Brief Note Subjective/Other Information Pt screened for skin risk, however, Alphonso score is 20. Will assess upon further consult or LOS.
[2018-12-13] MEDS ORDERED: LEXISCAN IV ONE (09:10)
[2018-12-13] MEDS ORDERED: NON-FORMULARY (Losartan/Hydrochlorothiazide [Hyzaar 100-12.5 Tab] 1 EACH) PO SCH (10:00)
--- NOTE | 2018-12-13 10:41 | Event Note ---
Addendum entered and electronically signed by MADELYN DINH PA 12/13/18 15:07: Pt cleared by Cardiology, "...currently at low cardiovascular risk for contemplated vascular surgery. No immediate cardiac contraindications to proceeding with surgery at this time." Will make NPO after MN in prep for Aorta-Bifem for tomorrow. Original Note: Date: 12/13/18 Pt presented to ER with acute onset RLE numbness with mild right foot ischemia. He was started on anticoagulation (Heparin drip) to prevent thrombosis of any additional vessels. CTA ordered and revealed occluded aorta. Aorta Bifem bypass recommended. Cardiology consulted for clearance. Pt awake and alert, without new complaint. Pt in cardiology for cardiac nuc. stress test this am. Possible Aorta-Bifem bypass tomorrow if cleared by cardiology.
--- NOTE | 2018-12-13 10:49 | Progress Note ---
Assessment and Plan Echo reviewed - EF 55-60%, mild LVH. S/p lexiscan MPI stress test this AM which was negative. Currently stable cardiac status. Pt currently at low cardiovascular risk for contemplated vascular surgery. No immediate cardiac contraindications to proceeding with surgery at this time. The patient has been seen in conjunction with Dr. Sawyer who agrees with the assessment and plan of care. - Patient Problems (1) Preoperative cardiovascular examination Current Visit: Yes Status: Acute (2) PAD (peripheral artery disease) Current Visit: Yes Status: Chronic (3) HTN (hypertension) Current Visit: Yes Status: Chronic (4) Hyperlipidemia Current Visit: Yes Status: Chronic (5) Tobacco use Current Visit: Yes Status: Chronic Subjective Date of service: 12/13/18 Principal diagnosis: PVD Interval history: pt for stress test. no current cardiac complaints. Objective Last Vital Signs Temp 98.3 F 12/13/18 05:37 Pulse 73 12/13/18 05:37 Resp 18 12/13/18 05:37 BP 139/89 12/13/18 05:37 Pulse Ox 98 12/13/18 05:37 - Physical Examination General: No Apparent Distress HEENT: Positive: PERRL, Normocephaly, Mucus Membranes Moist Neck: Positive: neck supple, trachea midline Cardiac: Positive: Reg Rate and Rhythm, S1/S2 Lungs: Positive: clear to auscultation Neuro: Positive: Grossly Intact Abdomen: Positive: Soft. Negative: Tender Skin: Negative: Rash, Wound Musculoskeletal: No Pain Extremities: Absent: edema - Imaging and Cardiology EKG: report reviewed, image reviewed Pharmacologic stress test: pending Stress echo: report reviewed - Telemetry EKG Rhythm: Sinus Rhythm
--- NOTE | 2018-12-13 11:35 | Treadmill Report ---
NUCLEAR CARDIAC STRESS TEST Indication: preop. Informed consent was obtained. Vasodilator stress was achieved with 0.4 mg of Lexiscan per protocol. The baseline electrocardiogram demonstrates sinus bradycardia at 59 beats per minute with right bundle branch block. There were no significant ischemic repolarization changes noted following the administration of Lexiscan. No chest pain was reported. Rest and stress nuclear cardiac imaging was performed following the intravenous administration of 10 and 28 mCi of technetium 99m Myoview respectively. Imaging occurred per protocol. Gated SPECT imaging demonstrates a post-stress left ventricular ejection fraction of 48% with normal wall motion. Myocardial perfusion imaging demonstrates no significant cavity change between stress and rest. No significant stress induced perfusion defects are seen. The Lexiscan stress test is clinically and electrocardiographically nonischemic. Nuclear cardiac imaging demonstrates low normal post-stress left ventricular systolic function with no significant evidence for myocardial ischemia or necrosis. JOB# [id number] SALAZAR/OPAL HUGHES
[2018-12-13] MEDS: ASPIRIN PO SCH (12:35)
[2018-12-13] MEDS: COZAAR PO SCH (12:36)
[2018-12-13] MEDS: PEPCID PO SCH ×2 (12:36→21:42)
[2018-12-13] MEDS: HCTZ PO SCH (12:36)
[2018-12-13] MEDS: SODIUM CHLORIDE FLUSH SYRINGE 10 ML IV SCH (12:37)
[2018-12-13 13:43] LABS: Hematocrit 41.3 % (35.5-45.6); Mean Corpuscular HGB Conc 34 % (32-34); Mean Corpuscular Volume 90 fl (84-94); Platelet Count 215 K/mm3 (140-440); Red Blood Count 4.59 M/mm3 (3.65-5.03); Red Cell Distribution Width 15.3 % (13.2-15.2)
--- NOTE | 2018-12-13 17:17 | Anesthesia Consultation ---
Anesthesia Consult and Med Hx Date of service: 12/13/18 - Airway Anesthetic Teeth Evaluation: Good ROM Head & Neck: Adequate Mental/Hyoid Distance: Adequate Mallampati Class: Class II Intubation Access Assessment: Probably Good - Pulmonary Exam CTA: Yes - Cardiac Exam Cardiac Exam: RRR - Pre-Operative Health Status ASA Pre-Surgery Classification: ASA3 Proposed Anesthetic Plan: General - Pulmonary Hx Smoking: Yes (1/2PPD x30yrs) Hx Asthma: No Hx Respiratory Symptoms: No COPD: No Home Oxygen Therapy: No - Cardiovascular System Hx Hypertension: Yes Hx Heart Attack/AMI: No Hx Percutaneous Transluminal Coronary Angioplasty (PTCA): No Hx Cardia Arrhythmia: No Hx Valvular Heart Disease: No Hx Peripheral Vascular Disease: Yes (PAD B/L LE) - Central Nervous System Hx Seizures: No CVA: No - Gastrointestinal Hx Gastroesophageal Reflux Disease: No - Endocrine Hx Renal Disease: No Hx Liver Disease: No Hx Insulin Dependent Diabetes: No Hx Non-Insulin Dependent Diabetes: No Hx Thyroid Disease: No - Hematic Hx Anemia: No - Other Systems Hx Substance Use: No Hx Obesity: No - Additional Comments Anesthesia Medical History Comments: No hx anesthetic complications. >4 mets excerise tolerance. TTE 12/13/18 shows normal EF, no significant valvular lesions. Nuc stress test negative. Plan GETA, standard ASA monitors + a-line. Discussed possibility of blood transfusion and/or post-op ventilation pending intraoperative course.
[2018-12-13] MEDS: HEPARIN/ 0.45% NACL-25,000 UNIT/500 ML 25,000 UNIT/500 ML BAG IV SCH (17:47)
[2018-12-14] MEDS: SODIUM CHLORIDE FLUSH SYRINGE 10 ML IV SCH ×2 (00:59→22:49)
[2018-12-14] MEDS ORDERED: VERSED IV NR (06:00)
[2018-12-14] MEDS ORDERED: NEURONTIN PO NR (06:00)
[2018-12-14] MEDS ORDERED: LACTATED RINGERS 1,000 ML IV SCH (06:00)
[2018-12-14] MEDS ORDERED: ACD-A 500 ML IV ONE (07:23)
[2018-12-14] MEDS ORDERED: PROTAMINE SULFATE ONE (07:23)
[2018-12-14] MEDS ORDERED: MARCAINE 0.5% INFILTRATI ONE (07:23)
[2018-12-14] MEDS ORDERED: HEPARIN 10,000 UNITS/10 ML ONE ×2 (07:24→15:08)
[2018-12-14] MEDS ORDERED: NACL ONE ×2 (07:24→10:31)
[2018-12-14] MEDS ORDERED: NACL 0.9% 1000 ML 2,000 ML ONE (07:24)
[2018-12-14] MEDS ORDERED: RIFADIN ONE (07:24)
[2018-12-14] MEDS ORDERED: THROMBIN (BOVINE) TP ONE (07:25)
[2018-12-14] MEDS ORDERED: GELFOAM TP ONE (07:25)
[2018-12-14] MEDS: PEPCID PO SCH (07:29)
[2018-12-14] MEDS ORDERED: NACL 0.9% 500 ML 500 ML IV NR (07:46)
[2018-12-14] MEDS ORDERED: ANCEF/STERILE WATER 2 GM/20 ML 2 GM/20 ML SYRINGE IV NR (08:00)
[2018-12-14] MEDS ORDERED: TORADOL ONE (08:08)
[2018-12-14] MEDS ORDERED: DIPRIVAN 10 MG/ML IV ONE (08:08)
[2018-12-14] MEDS ORDERED: XYLOCAINE CARDIAC IV ONE (08:08)
[2018-12-14] MEDS ORDERED: SUBLIMAZE ONE ×2 (08:08→11:56)
[2018-12-14] MEDS ORDERED: QUELICIN ONE (08:08)
[2018-12-14] MEDS ORDERED: ZEMURON IV ONE ×3 (08:08→14:42)
[2018-12-14] MEDS ORDERED: ZOFRAN ONE (08:08)
[2018-12-14] MEDS ORDERED: DECADRON ONE (08:08)
--- NOTE | 2018-12-14 08:23 | Anesthesia Day of Surgery ---
Anesthesia Day of Surgery - Day of Surgery Patient Examined: Yes Patient H&P Reviewed: Yes Patient is NPO: Yes Cardiac Clearance: Yes
[2018-12-14] MEDS ORDERED: DILAUDID IV PRN (08:25)
[2018-12-14] MEDS ORDERED: NEO SYNEPHRINE ONE (09:40)
[2018-12-14] MEDS ORDERED: NEO SYNEPHRINE/NS Syringe(OR USE) IV ONE (09:40)
[2018-12-14] MEDS ORDERED: ACD-A IV ONE (10:54)
[2018-12-14] MEDS ORDERED: HEPARIN 10,000 UNITS/10 ML IV ONE (10:55)
[2018-12-14] MEDS ORDERED: NACL 0.9% 1000 ML IR ONE (10:55)
--- NOTE | 2018-12-14 11:59 | Progress Note ---
Assessment and Plan Assessment and plan: 48-year-old man who presented with bilateral lower extremity pain worse on the right, is also complaining of numbness and paresthesias of both lower extremities. The symptoms began acutely prior to patient's. Hospital course the patient was found to have occlusion/thrombosis of the infrarenal aorta. He has been seen by vascular surgeon. He is currently being anticoagulated with heparin drip, he was seen by cardiology, had echo and stress test which were negative, per cardiology he is optimized for planned vascular surgery, The patient is planned for aortobifemoral bypass today -Has been counseled about tobacco cessation, nicotine patches as needed -optimized meds for chronic conditions Diagnoses Occlusion/thrombosis of the infrarenal aorta Nicotine dependence htn hld History Interval history: Review of systems Constitutional: No fevers, no malaise, no joint pains CVS: No chest pain, no orthopnea, no dyspnea on exertion, no pedal edema GI: No abdominal pain, no diarrhea, no vomiting, no constipation Respiratory: No shortness of breath, no wheezing, no coughing Hospitalist Physical - Physical exam Narrative exam: General.: Appears well, no distress, nontoxic HEENT: Moist mucous membranes, extraocular muscles intact, no lymphadenopathy Neck: supple Cardiac: S1-S2 heard Lungs: clear to auscultation bilaterally Abdomen: soft , nontender, nondistended, bowel sounds positive Extremities: No gross edema Skin: no rash or lesions Neurologic: no gross focal deficits Psych: calm, and cooperative - Constitutional Vitals: Temp Pulse Resp BP Pulse Ox 98 F 55 L 18 141/89 99 12/14/18 07:20 12/14/18 07:20 12/14/18 07:20 12/14/18 07:40 12/14/18 07:20 General appearance: Present: no acute distress Results - Labs CBC & Chem 7: 12/13/18 13:21 12/11/18 04:40 Labs: Laboratory Last Values WBC 5.5 K/mm3 (4.5-11.0) 12/13/18 13:21 RBC 4.59 M/mm3 (3.65-5.03) 12/13/18 13:21 Hgb 14.0 gm/dl (11.8-15.2) 12/13/18 13:21 Hct 41.3 % (35.5-45.6) 12/13/18 13:21 MCV 90 fl (84-94) 12/13/18 13:21 MCH 30 pg (28-32) 12/13/18 13:21 MCHC 34 % (32-34) 12/13/18 13:21 RDW 15.3 % (13.2-15.2) H 12/13/18 13:21 Plt Count 215 K/mm3 (140-440) 12/13/18 13:21 Lymph % (Auto) 13.3 % (13.4-35.0) L 12/10/18 11:02 Ware % (Auto) 6.1 % (0.0-7.3) 12/10/18 11:02 Eos % (Auto) 0.2 % (0.0-4.3) 12/10/18 11:02 Baso % (Auto) 0.7 % (0.0-1.8) 12/10/18 11:02 Lymph # 1.3 K/mm3 (1.2-5.4) 12/10/18 11:02 Ware # 0.6 K/mm3 (0.0-0.8) 12/10/18 11:02 Eos # 0.0 K/mm3 (0.0-0.4) 12/10/18 11:02 Baso # 0.1 K/mm3 (0.0-0.1) 12/10/18 11:02 Seg Neutrophils % 79.7 % (40.0-70.0) H 12/10/18 11:02 Seg Neutrophils # 8.0 K/mm3 (1.8-7.7) H 12/10/18 11:02 PT 13.5 Sec. (12.2-14.9) 12/10/18 11:02 INR 0.97 (0.87-1.13) 12/10/18 11:02 APTT 28.6 Sec. (24.2-36.6) 12/10/18 11:02 Heparin Anti-Xa Level 0.10 U.I./ml (0.3-0.7) L 12/14/18 05:00 Sodium 137 mmol/L (137-145) 12/11/18 04:40 Potassium 3.6 mmol/L (3.6-5.0) 12/11/18 04:40 Chloride 101.9 mmol/L (98-107) 12/11/18 04:40 Carbon Dioxide 25 mmol/L (22-30) 12/11/18 04:40 Anion Gap 14 mmol/L 12/11/18 04:40 BUN 8 mg/dL (9-20) L 12/11/18 04:40 Creatinine 0.7 mg/dL (0.8-1.5) L 12/11/18 04:40 Estimated GFR > 60 ml/min 12/11/18 04:40 BUN/Creatinine Ratio 11 % 12/11/18 04:40 Glucose 135 mg/dL (75-100) H 12/11/18 04:40 Calcium 8.6 mg/dL (8.4-10.2) 12/11/18 04:40 Troponin T < 0.010 ng/mL (0.00-0.029) 12/13/18 07:13 Blood Type A POSITIVE 12/13/18 13:21 Antibody Screen Negative 12/13/18 13:21 Crossmatch See Detail 12/13/18 13:21 Nutrition/Malnutrition Assess - Dietary Evaluation Nutrition/Malnutrition Findings: Nutrition Notes Start: 12/11/18 11:02 Freq: Status: Active Protocol: Document 12/11/18 11:03 MARIKA (Rec: 12/11/18 11:03 MARIKA [id number]) Nutrition Notes Need for Assessment generated from: quill stripper Initial or Follow up Brief Note Subjective/Other Information Pt screened for skin risk, however, Alphonso score is 20. Will assess upon further consult or LOS.
[2018-12-14] MEDS ORDERED: NITROGLYCERIN SYRINGE 3 ML ONE (12:05)
[2018-12-14] MEDS ORDERED: Vasostrict ONE (12:05)
[2018-12-14] MEDS: ANCEF/NS 1 GM/50 ML 1 GM/50 ML BAG IV SCH (14:46)
[2018-12-14] MEDS ORDERED: BREVIBLOC IV ONE ×2 (14:47→16:18)
[2018-12-14] MEDS ORDERED: ANCEF ONE (15:08)
[2018-12-14 16:19] LABS: Hemoglobin TNR gm/dl (11.8-15.2)
[2018-12-14 16:22] LABS: Hematocrit 77.3 % (35.5-45.6)
[2018-12-14] MEDS ORDERED: DILAUDID ONE (16:39)
[2018-12-14] MEDS ORDERED: NEO-SYNEPHRINE NS ONE (17:00)
[2018-12-14] MEDS ORDERED: ROBINUL ONE ×2 (17:15→17:24)
[2018-12-14] MEDS ORDERED: BLOXIVERZ ONE (17:24)
[2018-12-14] MEDS ORDERED: NARCAN 0.4 MG/1 ML IV PRN (17:29)
[2018-12-14] MEDS ORDERED: NACL 0.9% 1000 ML 1,000 ML ONE (17:38)
[2018-12-14] MEDS ORDERED: LACTATED RINGERS 1,000 ML ONE ×2 (17:38)
[2018-12-14] MEDS ORDERED: NACL 0.9% 1000 ML 1,000 ML IV SCH (18:00)
[2018-12-14] MEDS: LOPRESSOR IV SCH ×2 (18:14→23:21)
--- NOTE | 2018-12-14 18:17 | Operative Report ---
Operative Report Operative Report: Operative note: Date: 12/14/2018 Preoperative diagnosis: Aortoiliac disease with infrarenal aortic thrombosis Postoperative diagnosis: Same. Operation: Aortobifemoral bypass with dacron graft 16 x 8 Surgeon: Jazlyn Alatorre. Co-surgeon: Lonnie Mckinley Asst.: Jake Rodríguez Anesthesia: Gen. EBL: 850ml Blood replacement: 350 mL by cell saver Fluid replacement, 3800ml crystalloids Urine output: 750 mL Findings: Aortic thrombus with extension through juxtarenal portion. Left femoral artery with soft plaque small amount, right common femoral artery with small thromboembolus. Excellent Doppler signal in GURVINDER after completion of bypass. At the end of procedure Doppler signals in bilateral posterior tibial and dorsalis pedis arteries Indications: 48-year-old gentleman that initially came to the office complaining of left leg claudication. At that time arterial duplex showed left oximetry with monophasic flow all the way from external iliac artery. She was supposed to be set for CT scanning, however he was admitted to the hospital was normal right leg numbness and coolness. At this time she had a CTA of aorta and runoff that showed infrarenal aortic thrombosis that extends to juxtarenal aorta proximally and distally through bilateral common iliac and external iliac arteries with reconstitution of common femoral arteries. He was placed on heparin drip and discussed surgical options of treatment. Patient understood all risks, benefits and alternatives of procedure and chose to proceed and signed informed consent. Operative details: Patient was brought to the operating room and placed in supine position. Her arms were tucked in place, normal bony prominences were padded. Appropriate monitoring lines and general anesthesia was done by anesthesia provided. Bain catheter was placed with sterile technique. Abdomen and bilateral legs to lower thighs were prepped and draped in sterile fashion. Preoperative antibiotics were administered prior to skin incision. Bilateral groin vertical skin incisions were made simultaneously with myself performing right and community assistant performing left cutdowns. Those were extended approximately 2 cm. There were deepened through subcutaneous tissues using electrocautery. Lymphatics and crossing vessels were ligated and divided. Common femoral artery was then exposed using sharp dissection. Due to bilateral previous femoral percutaneous access we encountered significant amount of scar tissue. Common femoral artery was thickened vessel. With further dissection proximally and distally, control was gained of profunda femoris and superficial femoral arteries, proximally to the epigastric and iliac circumflex branches. The groins were then packed with wet sponges. Attention then was focused on the abdominal part of the operation. Skin incision was made from subxiphoid to the suprapubic area in the midline using 10 blade. Subcutaneous tissue was then divided using electrocautery. Linea alba was exposed and incised and incision was extended proximally and distally throughout its length. A peripheral exploration revealed no incidental findings. NG tube placement was confirmed with stomach palpation. Transverse colon was then elevated superiorly and small bowel was moved to the right exposing the aorta. Bookwalter self-retaining retractor was placed. Bowel was wrapped in a warm wet lap. Infrarenal aorta was exposed. Sharp dissection of the ligament of Treitz and distal fourth portion of duodenum allowed further exposure of the aorta and retraction small bowel to the right. Retroperitoneum overlying the aorta was incised. The incision continued proximally to the level of left renal vein. The inferior mesenteric vein was encountered and retracted preserving that. Retroperitoneum was then continued to be divided distally to the right bifurcation. Left renal vein was mobilized, taken on vessel loop and retracted. Left renal artery was dissected and taken also on vessel loop to control and prevent embolization since thrombus was extending just above the left renal artery. Aorta just above the left renal artery was dissected and using right angle taken on on the umbilical tape. The infrarenal aorta was also dissected and taken on red rubber catheter using right angle. Using right angle umbilical tape was passed at the planned clamp site. Next, right retroperitoneal tunnel was created using blunt dissection just on top of the iliac artery. Umbilical tape was passed and taken on hemostats. Same was down the left side. Patient was heparinized according to weight based After 3 minutes of surgical heparin left renal artery was clamped and juxtarenal aorta was crossclamped. Distal portion was clamped also. Aorta was transected at the infrarenal portion. Thrombus was removed until no further visualized. Aorta was flushed. At this point another clamp was secured at the infrarenal portion and the renal artery was reopened. Distal aortic stump with sutured using 2-0 Prolene with mattress stitch one way and upper lower on the abdomen direction. Distal clamp was released. A 16 x 8 Dacron graft was cut in beveled fashion. Proximal anastomosis was created in the circumferential fashion using 3-0 Prolene V7 needle. Anastomosis was then successfully completed, sutures were tied and anastomosis checked for hemostasis is required a few additional stitches. Each graft limb was passed in the created tunnel beginning from the right side and then left side. Attention then was focused on femoral anastomosis. Proximall and distal control was gained. A longitudinal arteriotomy was then created. Upon entering the vessel on the right small clot that looked like thromboembolus was removed. #6 Annabel was passed in the right iliac artery and thrombus was evacuated until further seen. This wasn't potentially improve blood flow to the pelvis. #3 Annabel was passed distally into the SFA, however no thrombus was seen, however no good backbleeding appreciated also. On the right side anastomosis was created using 5-0 Prolene in a circumferential fashion with toe at the bifurcation of superficial femoral and profundus arteries.. It was flushed before completion was checked excellent forward bleeding and backbleeding from profunda branches. Left arteriotomy showed small amounts of common femoral plaque that was easily removed. Then using 5-0 Prolene circumferential fashion anastomosis was completed with good forward bleeding from bypass. Was good flow from profunda and SFA.. Anastomosis was flushed with heparinized saline and completed. The graft was opened at the time with close anesthesia communication to prevent hypotension. A completion of anastomosis with Doppler GURVINDER. It was excellent signal with good flow and there was no need for reimplantation Aortic anastomosis and abdominal cavity was again checked for hemostasis. Teseal was sprayed on the dissected areas. We also put Arixtra on the dissected retroperitoneal area. Retroperitoneum was then closed using Vicryl stitch. A self-retaining retractor was then removed and abdominal cavity closed using loop #0 PDS. [place] were applied and the skin. Groin areas were checked for hemostasis and closed using Vicryl 2 layers and Monocryl. Dermabond was applied. Patient tolerated procedure well. All sponge and needle counts were correct 2. Distal perfusion was checked with Doppler.
[2018-12-14] MEDS: NORMODYNE IV PRN ×3 (18:35→20:15)
[2018-12-14 19:57] LABS: Hematocrit 42.1 % (35.5-45.6); Hemoglobin 14.1 gm/dl (11.8-15.2); Mean Corpuscular HGB Conc 34 % (32-34); Mean Corpuscular Volume 91 fl (84-94); Platelet Count 179 K/mm3 (140-440); Red Blood Count 4.64 M/mm3 (3.65-5.03); Red Cell Distribution Width 15.2 % (13.2-15.2)
[2018-12-14 20:48] LABS: Basophils % (Manual) 0 % (0.0-1.8); Eosinophils % (Manual) 0 % (0.0-4.3); Total Cells Counted 100
[2018-12-14 20:49] LABS: Anisocytosis 1+; Platelet Estimate Consistent w Auto; Poikilocytosis Few
[2018-12-14 21:45] LABS: BUN/Creatinine Ratio 11; Blood Urea Nitrogen 8 mg/dL (9-20); Calcium 7.9 mg/dL (8.4-10.2); Hemolysis Index 7
--- NOTE | 2018-12-14 22:19 | Post Anesthesia Evaluation ---
- Post Anesthesia Evaluation Patient Participated: Yes Airway Patent: Yes Stable Respiratory Function: Yes Nausea/Vomiting: No Temp > 96.8F: Yes Pain Manageable: Yes Adequeate Hydration: Yes Anesthesia Complications: No Block Receding Appropriately: Not Applicable Patient on Ventilator: No Other Comments: Planned ICU transfer for further post-op monitoring.
[2018-12-14] MEDS: MORPHINE IV PRN (22:48)
[2018-12-14] MEDS: PROTONIX IV SCH (22:48)
[2018-12-14] MEDS: HEPARIN/ 0.45% NACL-25,000 UNIT/500 ML 25,000 UNIT/500 ML BAG IV SCH (23:22)
[2018-12-15] MEDS ORDERED: NORMODYNE IV PRN (00:06)
[2018-12-15] MEDS: MORPHINE IV PRN ×8 (01:22→23:06)
[2018-12-15] MEDS: ANCEF/NS 1 GM/50 ML 1 GM/50 ML BAG IV SCH (01:23)
[2018-12-15] MEDS ORDERED: NORMODYNE IV ONE (01:51)
[2018-12-15] MEDS: LOPRESSOR IV SCH ×3 (05:01→18:24)
[2018-12-15 05:20] LABS: Hematocrit 41.3 % (35.5-45.6); Hemoglobin 14.1 gm/dl (11.8-15.2)
[2018-12-15 05:38] LABS: BUN/Creatinine Ratio 13; Blood Urea Nitrogen 10 mg/dL (9-20); Calcium 7.5 mg/dL (8.4-10.2); Hemolysis Index 4
--- NOTE | 2018-12-15 08:11 | Consultation ---
History of Present Illness - Reason for Consult Consult date: 12/14/18 Intraoperative Consult Requesting physician: QUAN ALATORRE - History of Present Illness I was called by Dr Quan Alatorre for an intraoperative consult for assistance with an aortobifemoral bypass. The patient is a 48-year-old male with a history of claudication who presented to the emergency department with acute right lower extremity paresthesias and pain. His workup included a CTA of his abdomen and pelvis with runoff that demonstrated occlusion of his aorta with acute occlusion of his right iliac artery. He was eventually set up for an aortobifemoral bypass. Dr. Alatorre properly worked the patient up and took him to the operating room for the aortobifemoral bypass. After beginning the case she called for assistance as she fell and the interest of patient safety, it was best to perform this case with 2 surgeons. Past History Past Medical History: hypertension, hyperlipidemia, PVD Past Surgical History: No surgical history, Other (reviewed) Social history: single, smoking. denies: alcohol abuse, prescription drug abuse Family history: no significant family history (reviewed) Medications and Allergies Allergies Allergy/AdvReac Type Severity Reaction Status Date / Time No Known Allergies Allergy Verified 12/10/18 07:59 Home Medications Medication Instructions Recorded Confirmed Last Taken Type AtorvaSTATin [Lipitor] 40 mg PO QHS 12/10/18 12/10/18 12/09/18 History Losartan/Hydrochlorothiazide 1 each PO QDAY 12/10/18 12/10/18 12/09/18 History [Hyzaar 100-12.5 TAB] Active Meds: Active Medications Acetaminophen (Tylenol) 650 mg PO Q4H PRN PRN Reason: Pain MILD(1-3)/Fever >100.5/LUGO Albuterol (Proventil) 2.5 mg IH Q4HRT PRN PRN Reason: Shortness Of Breath Aspirin (Aspirin) 325 mg PO QDAY [facility] Last Admin: 12/13/18 12:35 Dose: 325 mg Documented by: Atorvastatin Calcium (Lipitor) 40 mg PO QHS [facility] Last Admin: 12/14/18 22:58 Dose: Not Given Documented by: Hydrochlorothiazide (Hctz) 12.5 mg PO QDAY [facility] Last Admin: 12/13/18 12:36 Dose: 12.5 mg Documented by: Lactated Ringer's (Lactated Ringers) 1,000 mls @ 100 mls/hr IV DIRECT [facility] Last Admin: 12/14/18 07:33 Dose: 100 mls/hr Documented by: Heparin Sodium/Sodium Chloride (Heparin/ 0.45% Nacl-25,000 Unit/500 Ml) 25,000 unit in 500 mls @ 18 mls/hr IV TITR [facility]; Protocol Last Titration: 12/15/18 05:58 Dose: 900 units/hr, 18 mls/hr Documented by: Sodium Chloride (Nacl 0.9% 1000 Ml) 1,000 mls @ 125 mls/hr IV DIRECT [facility] Last Admin: 12/14/18 22:48 Dose: 125 mls/hr Documented by: Losartan Potassium (Cozaar) 100 mg PO QDAY [facility] Last Admin: 12/13/18 12:36 Dose: 100 mg Documented by: Metoprolol Tartrate (Lopressor) 5 mg IV Q6HR [facility] Last Admin: 12/15/18 05:01 Dose: 5 mg Documented by: Morphine Sulfate (Morphine) 2 mg IV Q4H PRN PRN Reason: Pain, Moderate (4-6) Last Admin: 12/15/18 07:45 Dose: 2 mg Documented by: Morphine Sulfate (Morphine) 4 mg IV Q4H PRN PRN Reason: Pain , Severe (7-10) Last Admin: 12/15/18 05:01 Dose: 4 mg Documented by: Naloxone HCl (Narcan 0.4 Mg/1 Ml) 0.1 mg IV Q2MIN PRN PRN Reason: Res Rate </= 8 or 02 SAT < 92% Ondansetron HCl (Zofran) 4 mg IV Q8H PRN PRN Reason: Nausea And Vomiting Oxycodone/Acetaminophen (Percocet 5/325) 1 tab PO Q6H PRN PRN Reason: Pain, Moderate (4-6) Pantoprazole Sodium (Protonix) 40 mg IV QDAY [facility] Last Admin: 12/14/18 22:48 Dose: 40 mg Documented by: Sodium Chloride (Sodium Chloride Flush Syringe 10 Ml) 10 ml IV BID [facility] Last Admin: 12/14/18 22:49 Dose: 10 ml Documented by: Sodium Chloride (Sodium Chloride Flush Syringe 10 Ml) 10 ml IV PRN PRN PRN Reason: LINE FLUSH Review of Systems ROS unobtainable: due to endotracheal tube, due to mental status (unable to obtain secondary to patient in the operating room at the time of the consultation) Exam - Constitutional Vitals: Temp Pulse Resp BP Pulse Ox 99.6 F 93 H 17 172/106 100 12/15/18 04:00 12/15/18 06:15 12/15/18 06:15 12/15/18 06:00 12/15/18 06:15 Results - Labs CBC & Chem 7: 12/15/18 04:37 12/15/18 04:37 Labs: Abnormal lab results 12/13/18 12/14/18 12/14/18 Range/Units 13:21 15:48 15:48 WBC (4.5-11.0) K/mm3 Hct 77.3 H* D (35.5-45.6) % Seg Neuts % (Manual) (40.0-70.0) % Lymphocytes % (Manual) (13.4-35.0) % Seg Neutrophils # Man (1.8-7.7) K/mm3 Lymphocytes # (Manual) (1.2-5.4) K/mm3 Heparin Anti-Xa Level (0.3-0.7) U.I./ml Carbon Dioxide (22-30) mmol/L BUN (9-20) mg/dL Creatinine (0.8-1.5) mg/dL Glucose (75-100) mg/dL Calcium (8.4-10.2) mg/dL Albumin 0.6 L (3.9-5) g/dL Crossmatch See Detail 12/14/18 12/14/18 12/15/18 Range/Units 19:41 19:41 04:37 WBC 11.8 H (4.5-11.0) K/mm3 Hct (35.5-45.6) % Seg Neuts % (Manual) 89.0 H (40.0-70.0) % Lymphocytes % (Manual) 5.0 L (13.4-35.0) % Seg Neutrophils # Man 10.5 H (1.8-7.7) K/mm3 Lymphocytes # (Manual) 0.6 L (1.2-5.4) K/mm3 Heparin Anti-Xa Level (0.3-0.7) U.I./ml Carbon Dioxide 21 L (22-30) mmol/L BUN 8 L (9-20) mg/dL Creatinine 0.7 L (0.8-1.5) mg/dL Glucose 161 H 128 H (75-100) mg/dL Calcium 7.9 L 7.5 L (8.4-10.2) mg/dL Albumin (3.9-5) g/dL Crossmatch 12/15/18 Range/Units 04:37 WBC (4.5-11.0) K/mm3 Hct (35.5-45.6) % Seg Neuts % (Manual) (40.0-70.0) % Lymphocytes % (Manual) (13.4-35.0) % Seg Neutrophils # Man (1.8-7.7) K/mm3 Lymphocytes # (Manual) (1.2-5.4) K/mm3 Heparin Anti-Xa Level 0.19 L (0.3-0.7) U.I./ml Carbon Dioxide (22-30) mmol/L BUN (9-20) mg/dL Creatinine (0.8-1.5) mg/dL Glucose (75-100) mg/dL Calcium (8.4-10.2) mg/dL Albumin (3.9-5) g/dL Crossmatch Assessment and Plan At the time that I arrived in the operating room Dr. Alatorre had exposed the femoral arteries and was beginning to open the abdomen. I remained in the case from the entire implantation of the aortobifemoral graft including the aortic thrombectomy and proximal anastomosis as well as bilateral femoral anastomosis. I left the room prior to closure. Please see Dr Alatorre's operative note for details of the procedure.
[2018-12-15] MEDS: COZAAR PO SCH ×2 (10:53→11:34)
[2018-12-15] MEDS: ASPIRIN PO SCH ×2 (10:53→11:33)
[2018-12-15] MEDS: SODIUM CHLORIDE FLUSH SYRINGE 10 ML IV SCH ×3 (10:54→21:19)
[2018-12-15] MEDS: HCTZ PO SCH ×2 (10:54→11:34)
--- NOTE | 2018-12-15 11:33 | Progress Note ---
Assessment and Plan Pt s/p vascular surgery. Currently sable cardiac status. Nothing further to add from cardiac perspective at this time. Will sign off. The patient has been seen in conjunction with Dr. Sawyer who agrees with the assessment and plan of care. - Patient Problems (1) Preoperative cardiovascular examination Current Visit: Yes Status: Acute (2) PAD (peripheral artery disease) Current Visit: Yes Status: Chronic (3) HTN (hypertension) Current Visit: Yes Status: Chronic (4) Hyperlipidemia Current Visit: Yes Status: Chronic (5) Tobacco use Current Visit: Yes Status: Chronic Subjective Date of service: 12/15/18 Principal diagnosis: PVD Interval history: pt s/p vascular surgery yesterday. no current cardiac complaints. Objective Last Vital Signs Temp 99.1 F 12/15/18 08:00 Pulse 89 12/15/18 11:15 Resp 17 12/15/18 11:15 BP 155/93 12/15/18 11:15 Pulse Ox 99 12/15/18 11:15 - Physical Examination General: No Apparent Distress HEENT: Positive: PERRL, Normocephaly, Mucus Membranes Moist Neck: Positive: neck supple, trachea midline Cardiac: Positive: Reg Rate and Rhythm, S1/S2 Lungs: Positive: clear to auscultation Neuro: Positive: Grossly Intact Abdomen: Positive: Soft. Negative: Tender Skin: Negative: Rash - Labs and Meds CBC 12/14/18 12/14/18 12/15/18 Range/Units 15:48 19:41 04:37 WBC 11.8 H (4.5-11.0) K/mm3 RBC 4.64 (3.65-5.03) M/mm3 Hgb TNR 14.1 14.1 Hct 77.3 H* D 42.1 D 41.3 (35.5-45.6) % Plt Count 179 (140-440) K/mm3 Comprehensive Metabolic Panel 12/14/18 12/14/18 12/15/18 Range/Units 15:48 19:41 04:37 Sodium 138 137 (137-145) mmol/L Potassium 4.5 D 4.3 (3.6-5.0) mmol/L Chloride 102.8 102.3 (98-107) mmol/L Carbon Dioxide 21 L 22 (22-30) mmol/L BUN 8 L 10 (9-20) mg/dL Creatinine 0.7 L 0.8 (0.8-1.5) mg/dL Glucose 161 H 128 H (75-100) mg/dL Calcium 7.9 L 7.5 L (8.4-10.2) mg/dL Albumin 0.6 L (3.9-5) g/dL - Imaging and Cardiology EKG: report reviewed, image reviewed Stress echo: report reviewed - Telemetry EKG Rhythm: Sinus Rhythm
--- NOTE | 2018-12-15 11:35 | Consultation ---
History of Present Illness - Reason for Consult Consult date: 12/15/18 Post-op management Requesting physician: QUAN ANDERSON - History of Present Illness 48 y/o male with PVD admitted with claudication. Went to OR yesterday for bypass. This AM extremity is cool and patient is hypertensive. Past History Past Medical History: hypertension, hyperlipidemia, PVD Past Surgical History: No surgical history, Other (reviewed) Social history: single, smoking. denies: alcohol abuse, prescription drug abuse Family history: no significant family history (reviewed) Medications and Allergies Allergies Allergy/AdvReac Type Severity Reaction Status Date / Time No Known Allergies Allergy Verified 12/10/18 07:59 Home Medications Medication Instructions Recorded Confirmed Last Taken Type AtorvaSTATin [Lipitor] 40 mg PO QHS 12/10/18 12/10/18 12/09/18 History Losartan/Hydrochlorothiazide 1 each PO QDAY 12/10/18 12/10/18 12/09/18 History [Hyzaar 100-12.5 TAB] Active Meds: Active Medications Acetaminophen (Tylenol) 650 mg PO Q4H PRN PRN Reason: Pain MILD(1-3)/Fever >100.5/LUGO Albuterol (Proventil) 2.5 mg IH Q4HRT PRN PRN Reason: Shortness Of Breath Aspirin (Aspirin) 325 mg PO QDAY [facility] Last Admin: 12/15/18 10:53 Dose: Not Given Documented by: Atorvastatin Calcium (Lipitor) 40 mg PO QHS [facility] Last Admin: 12/14/18 22:58 Dose: Not Given Documented by: Hydrochlorothiazide (Hctz) 12.5 mg PO QDAY [facility] Last Admin: 12/15/18 10:54 Dose: Not Given Documented by: Heparin Sodium/Sodium Chloride (Heparin/ 0.45% Nacl-25,000 Unit/500 Ml) 25,000 unit in 500 mls @ 18 mls/hr IV TITR ALESHA; Protocol Last Titration: 12/15/18 05:58 Dose: 900 units/hr, 18 mls/hr Documented by: Sodium Chloride (Nacl 0.9% 1000 Ml) 1,000 mls @ 125 mls/hr IV DIRECT ALESHA Last Admin: 12/14/18 22:48 Dose: 125 mls/hr Documented by: Nicardipine HCl 50 mg/ Sodium (Chloride) 250 mls @ 25 mls/hr IV TITR ALESHA; Protocol Losartan Potassium (Cozaar) 100 mg PO QDAY [facility] Last Admin: 12/15/18 10:53 Dose: Not Given Documented by: Metoprolol Tartrate (Lopressor) 5 mg IV Q6HR [facility] Last Admin: 12/15/18 05:01 Dose: 5 mg Documented by: Morphine Sulfate (Morphine) 2 mg IV Q4H PRN PRN Reason: Pain, Moderate (4-6) Last Admin: 12/15/18 07:45 Dose: 2 mg Documented by: Morphine Sulfate (Morphine) 4 mg IV Q4H PRN PRN Reason: Pain , Severe (7-10) Last Admin: 12/15/18 10:26 Dose: 4 mg Documented by: Naloxone HCl (Narcan 0.4 Mg/1 Ml) 0.1 mg IV Q2MIN PRN PRN Reason: Res Rate </= 8 or 02 SAT < 92% Ondansetron HCl (Zofran) 4 mg IV Q8H PRN PRN Reason: Nausea And Vomiting Oxycodone/Acetaminophen (Percocet 5/325) 1 tab PO Q6H PRN PRN Reason: Pain, Moderate (4-6) Pantoprazole Sodium (Protonix) 40 mg IV QDAY [facility] Last Admin: 12/14/18 22:48 Dose: 40 mg Documented by: Sodium Chloride (Sodium Chloride Flush Syringe 10 Ml) 10 ml IV BID [facility] Last Admin: 12/15/18 10:54 Dose: Not Given Documented by: Sodium Chloride (Sodium Chloride Flush Syringe 10 Ml) 10 ml IV PRN PRN PRN Reason: LINE FLUSH Review of Systems All systems: negative Exam - Constitutional Vitals: Temp Pulse Resp BP Pulse Ox 99.1 F 89 17 155/93 99 12/15/18 08:00 12/15/18 11:15 12/15/18 11:15 12/15/18 11:15 12/15/18 11:15 General appearance: Present: no acute distress, well-nourished - EENT Eyes: Present: PERRL, EOM intact - Respiratory Respiratory: negative: CTA - Cardiovascular Rhythm: regular Heart Sounds: Present: S1 & S2 - Extremities Extremity abnormal: cold, pulses diminished - Abdominal General gastrointestinal: Present: soft, non-tender, normal bowel sounds - Rectal Rectal Exam: deferred Results - Labs CBC & Chem 7: 12/16/18 03:57 12/15/18 04:37 Labs: Abnormal lab results 12/14/18 12/14/18 12/14/18 Range/Units 15:48 15:48 19:41 WBC (4.5-11.0) K/mm3 Hct 77.3 H* D (35.5-45.6) % Seg Neuts % (Manual) (40.0-70.0) % Lymphocytes % (Manual) (13.4-35.0) % Seg Neutrophils # Man (1.8-7.7) K/mm3 Lymphocytes # (Manual) (1.2-5.4) K/mm3 Heparin Anti-Xa Level (0.3-0.7) U.I./ml Carbon Dioxide 21 L (22-30) mmol/L BUN 8 L (9-20) mg/dL Creatinine 0.7 L (0.8-1.5) mg/dL Glucose 161 H (75-100) mg/dL Calcium 7.9 L (8.4-10.2) mg/dL Albumin 0.6 L (3.9-5) g/dL 12/14/18 12/15/18 12/15/18 Range/Units 19:41 04:37 04:37 WBC 11.8 H (4.5-11.0) K/mm3 Hct (35.5-45.6) % Seg Neuts % (Manual) 89.0 H (40.0-70.0) % Lymphocytes % (Manual) 5.0 L (13.4-35.0) % Seg Neutrophils # Man 10.5 H (1.8-7.7) K/mm3 Lymphocytes # (Manual) 0.6 L (1.2-5.4) K/mm3 Heparin Anti-Xa Level 0.19 L (0.3-0.7) U.I./ml Carbon Dioxide (22-30) mmol/L BUN (9-20) mg/dL Creatinine (0.8-1.5) mg/dL Glucose 128 H (75-100) mg/dL Calcium 7.5 L (8.4-10.2) mg/dL Albumin (3.9-5) g/dL Assessment and Plan 48 y/o male with PVD, admitted post of from aorto-fem bypass 1. Follow surgery evaluation about cold foot. 2. BP control with cardene drip as patient is NPO on NG tube 3. Will discuss further care with surgery
[2018-12-15] MEDS: PROTONIX IV SCH (11:42)
[2018-12-15] MEDS: SODIUM CHLORIDE FLUSH SYRINGE 10 ML IV PRN ×4 (12:22→18:39)
[2018-12-15] MEDS: CARDENE 50 MG in NACL 0.9% 250ML 230 ML IV SCH ×2 (12:27→21:19)
--- NOTE | 2018-12-15 17:54 | Progress Note ---
Assessment and Plan s/p aortobifemoral bypass POD 1 using incentive spirometry UOP adequate, GI: hypoactive bowel sounds, flatus+, NGT with minimal output contineu heparin drip on low intensity protocol Plan: Cepacol lozenges for throat irritation tomorrow remove NGT, vela, OOB change heparin to regular intensity protocol start on PO pain medications, PO BP medications to improve BP control Subjective Date of service: 12/15/18 Principal diagnosis: PVD, infrarenal aortic occlusion Interval history: Patient is complaining of pain at the surgery site that is managed by IV pain medications. Throat irritation from NGT. Objective - Exam Narrative Exam: Midline incision dressing c/d/i, groin incisions intact, no hematoma. Vela with adequate output. Palpable DP/PT pulses on the left, doppler signal peroneal on the left, foot motor/sensory intact. - Constitutional Vitals: Vital Signs - 12hr 12/15/18 12/15/18 12/15/18 06:00 06:15 06:31 Temperature Pulse Rate 91 H 93 H 92 H Pulse Rate [ Apical] Respiratory 19 17 21 Rate Blood Pressure 172/106 172/106 O2 Sat by Pulse 100 100 100 Oximetry 12/15/18 12/15/18 12/15/18 06:45 07:00 07:15 Temperature Pulse Rate 91 H 92 H 90 Pulse Rate [ Apical] Respiratory 22 25 H 22 Rate Blood Pressure 172/106 179/102 172/106 O2 Sat by Pulse 100 100 100 Oximetry 12/15/18 12/15/18 12/15/18 07:31 07:45 08:00 Temperature 99.1 F Pulse Rate 90 91 H 89 Pulse Rate [ Apical] Respiratory 14 22 22 Rate Blood Pressure 172/106 172/106 160/98 O2 Sat by Pulse 100 100 100 Oximetry 12/15/18 12/15/18 12/15/18 08:15 08:31 08:45 Temperature Pulse Rate 90 87 89 Pulse Rate [ Apical] Respiratory 22 22 20 Rate Blood Pressure 160/98 160/98 160/98 O2 Sat by Pulse 100 100 100 Oximetry 12/15/18 12/15/18 12/15/18 09:00 09:07 09:15 Temperature Pulse Rate 86 90 Pulse Rate [ Apical] Respiratory 11 L 20 Rate Blood Pressure 160/95 160/95 O2 Sat by Pulse 100 100 100 Oximetry 12/15/18 12/15/18 12/15/18 09:30 09:45 10:00 Temperature Pulse Rate 90 95 H 90 Pulse Rate [ Apical] Respiratory 25 H 18 31 H Rate Blood Pressure 158/97 158/97 167/103 O2 Sat by Pulse 100 100 100 Oximetry 12/15/18 12/15/18 12/15/18 10:15 10:26 10:30 Temperature Pulse Rate 87 89 Pulse Rate [ Apical] Respiratory 20 25 H 30 H Rate Blood Pressure 158/97 161/103 O2 Sat by Pulse 100 100 Oximetry 12/15/18 12/15/18 12/15/18 10:45 10:56 11:00 Temperature Pulse Rate 93 H 91 H Pulse Rate [ Apical] Respiratory 16 24 20 Rate Blood Pressure 161/103 155/93 O2 Sat by Pulse 100 99 Oximetry 12/15/18 12/15/18 12/15/18 11:15 11:30 11:45 Temperature Pulse Rate 89 91 H 90 Pulse Rate [ Apical] Respiratory 17 23 17 Rate Blood Pressure 155/93 157/96 157/96 O2 Sat by Pulse 99 97 100 Oximetry 12/15/18 12/15/18 12/15/18 12:00 12:15 12:21 Temperature 98.6 F Pulse Rate 91 H 90 94 H Pulse Rate [ 91 H Apical] Respiratory 18 29 H Rate Blood Pressure 149/98 157/96 149/98 O2 Sat by Pulse 99 99 Oximetry 12/15/18 12/15/18 12/15/18 12:30 12:45 13:00 Temperature Pulse Rate 87 89 92 H Pulse Rate [ Apical] Respiratory 27 H 23 28 H Rate Blood Pressure 157/99 146/98 148/92 O2 Sat by Pulse 99 99 97 Oximetry 12/15/18 12/15/18 12/15/18 13:15 13:30 13:45 Temperature Pulse Rate 92 H 93 H 94 H Pulse Rate [ Apical] Respiratory 20 19 29 H Rate Blood Pressure 151/85 133/83 121/79 O2 Sat by Pulse 98 97 97 Oximetry 12/15/18 12/15/18 12/15/18 14:00 14:15 14:30 Temperature Pulse Rate 89 92 H 95 H Pulse Rate [ Apical] Respiratory 25 H 27 H 28 H Rate Blood Pressure 125/75 122/76 125/80 O2 Sat by Pulse 97 98 96 Oximetry 12/15/18 12/15/18 12/15/18 14:45 15:00 15:15 Temperature Pulse Rate 96 H 99 H 99 H Pulse Rate [ Apical] Respiratory 23 32 H 38 H Rate Blood Pressure 127/73 129/78 124/75 O2 Sat by Pulse 97 97 97 Oximetry 12/15/18 12/15/18 12/15/18 15:30 15:45 16:00 Temperature 98.6 F Pulse Rate 97 H 98 H 98 H Pulse Rate [ 97 H Apical] Respiratory 26 H 25 H 24 Rate Blood Pressure 118/68 118/71 121/73 O2 Sat by Pulse 98 97 98 Oximetry - Labs CBC & Chem 7: 12/15/18 04:37 12/15/18 04:37 Labs: Abnormal lab results 12/14/18 12/14/18 12/15/18 Range/Units 19:41 19:41 04:37 WBC 11.8 H (4.5-11.0) K/mm3 Seg Neuts % (Manual) 89.0 H (40.0-70.0) % Lymphocytes % (Manual) 5.0 L (13.4-35.0) % Seg Neutrophils # Man 10.5 H (1.8-7.7) K/mm3 Lymphocytes # (Manual) 0.6 L (1.2-5.4) K/mm3 Heparin Anti-Xa Level (0.3-0.7) U.I./ml Carbon Dioxide 21 L (22-30) mmol/L BUN 8 L (9-20) mg/dL Creatinine 0.7 L (0.8-1.5) mg/dL Glucose 161 H 128 H (75-100) mg/dL Calcium 7.9 L 7.5 L (8.4-10.2) mg/dL 12/15/18 Range/Units 04:37 WBC (4.5-11.0) K/mm3 Seg Neuts % (Manual) (40.0-70.0) % Lymphocytes % (Manual) (13.4-35.0) % Seg Neutrophils # Man (1.8-7.7) K/mm3 Lymphocytes # (Manual) (1.2-5.4) K/mm3 Heparin Anti-Xa Level 0.19 L (0.3-0.7) U.I./ml Carbon Dioxide (22-30) mmol/L BUN (9-20) mg/dL Creatinine (0.8-1.5) mg/dL Glucose (75-100) mg/dL Calcium (8.4-10.2) mg/dL Medications & Allergies - Medications Allergies/Adverse Reactions: Allergies No Known Allergies Allergy (Verified 12/10/18 07:59) Home Medications: Home Medications Medication Instructions Recorded Confirmed Last Taken Type AtorvaSTATin [Lipitor] 40 mg PO QHS 12/10/18 12/10/18 12/09/18 History Losartan/Hydrochlorothiazide 1 each PO QDAY 12/10/18 12/10/18 12/09/18 History [Hyzaar 100-12.5 TAB] Active Medications: Generic Name Dose Route Start Last Admin Trade Name Freq PRN Reason Stop Dose Admin Acetaminophen 650 mg 12/10/18 14:16 Tylenol PO Q4H PRN Pain MILD(1-3)/Fever >100.5/LUGO Albuterol 2.5 mg 12/10/18 14:16 Proventil IH Q4HRT PRN Shortness Of Breath Aspirin 325 mg 12/12/18 14:00 12/15/18 11:33 Aspirin PO Not Given QDAY ALESHA Atorvastatin Calcium 40 mg 12/13/18 22:00 12/14/18 22:58 Lipitor PO Not Given QHS ALESHA Hydrochlorothiazide 12.5 mg 12/13/18 10:00 12/15/18 11:34 Hctz PO Not Given QDAY [facility] Heparin Sodium/Sodium Chloride 25,000 unit in 500 mls @ 18 mls/hr 12/15/18 00:01 12/15/18 05:58 Heparin/ 0.45% Nacl-25,000 Unit/500 Ml IV 900 units/hr TITR ALESHA 18 mls/hr Titration Protocol 900 UNITS/HR Sodium Chloride 1,000 mls @ 125 mls/hr 12/14/18 18:00 12/14/18 22:48 Nacl 0.9% 1000 Ml IV 125 mls/hr DIRECT ALESHA Administration Nicardipine HCl 50 mg/ Sodium 250 mls @ 25 mls/hr 12/15/18 12:00 12/15/18 13:54 Chloride IV 5 mg/hr TITR ALESHA 25 mls/hr Titration Protocol 5 MG/HR Losartan Potassium 100 mg 12/13/18 10:00 12/15/18 11:34 Cozaar PO Not Given QDAY ALESHA Metoprolol Tartrate 5 mg 12/14/18 18:00 12/15/18 12:21 Lopressor IV 5 mg Q6HR ALESHA Administration Morphine Sulfate 2 mg 12/14/18 17:29 12/15/18 07:45 Morphine IV 2 mg Q4H PRN Administration Pain, Moderate (4-6) Morphine Sulfate 4 mg 12/14/18 17:29 12/15/18 15:08 Morphine IV 4 mg Q4H PRN Administration Pain , Severe (7-10) Naloxone HCl 0.1 mg 12/14/18 17:29 Narcan 0.4 Mg/1 Ml IV Q2MIN PRN Res Rate </= 8 or 02 SAT < 92% Ondansetron HCl 4 mg 12/10/18 14:16 Zofran IV Q8H PRN Nausea And Vomiting Oxycodone/Acetaminophen 1 tab 12/10/18 14:16 Percocet 5/325 PO Q6H PRN Pain, Moderate (4-6) Pantoprazole Sodium 40 mg 12/14/18 18:00 12/15/18 11:42 Protonix IV 40 mg QDAY ALESHA Administration Sodium Chloride 10 ml 12/10/18 22:00 12/15/18 11:35 Sodium Chloride Flush Syringe 10 Ml IV Not Given BID ALESHA Sodium Chloride 10 ml 12/10/18 14:16 12/15/18 15:09 Sodium Chloride Flush Syringe 10 Ml IV 10 ml PRN PRN Administration LINE FLUSH
[2018-12-15] MEDS ORDERED: CEPACOL X STRENGTH MM PRN (18:53)
[2018-12-15] MEDS: HEPARIN/ 0.45% NACL-25,000 UNIT/500 ML 25,000 UNIT/500 ML BAG IV SCH (21:23)
--- NOTE | 2018-12-15 23:57 | Progress Note ---
Assessment and Plan Assessment and plan: 48-year-old man who presented with bilateral lower extremity pain worse on the right, is also complaining of numbness and paresthesias of both lower extremities. The symptoms began acutely prior to patient's. Hospital course the patient was found to have occlusion/thrombosis of the infrarenal aorta. He has been seen by vascular surgeon. He is currently being anticoagulated with heparin drip, he was seen by cardiology, had echo and stress test which were negative, per cardiology he is optimized for planned vascular surgery, sp aortobifemoral bypass 12/14 -Has been counseled about tobacco cessation, nicotine patches as needed -optimized meds for chronic conditions Diagnoses Occlusion/thrombosis of the infrarenal aorta Nicotine dependence htn hld History Interval history: Review of systems Constitutional: No fevers, no malaise, no joint pains CVS: No chest pain, no orthopnea, no dyspnea on exertion, no pedal edema GI: No abdominal pain, no diarrhea, no vomiting, no constipation Respiratory: No shortness of breath, no wheezing, no coughing Hospitalist Physical - Physical exam Narrative exam: General.: Appears well, no distress, nontoxic HEENT: Moist mucous membranes, extraocular muscles intact, no lymphadenopathy Neck: supple Cardiac: S1-S2 heard Lungs: clear to auscultation bilaterally Abdomen: soft , nontender, nondistended, bowel sounds positive Extremities: No gross edema Skin: no rash or lesions Neurologic: no gross focal deficits Psych: calm, and cooperative - Constitutional Vitals: Temp Pulse Resp BP Pulse Ox 100.2 F H 100 H 31 H 128/79 97 12/15/18 23:52 12/15/18 20:30 12/15/18 23:06 12/15/18 20:30 12/15/18 20:30 General appearance: Present: no acute distress, well-nourished Results - Labs CBC & Chem 7: 12/15/18 04:37 12/15/18 04:37 Labs: Laboratory Last Values WBC 11.8 K/mm3 (4.5-11.0) H 12/14/18 19:41 RBC 4.64 M/mm3 (3.65-5.03) 12/14/18 19:41 Hgb 14.1 gm/dl (11.8-15.2) 12/15/18 04:37 Hct 41.3 % (35.5-45.6) 12/15/18 04:37 MCV 91 fl (84-94) 12/14/18 19:41 MCH 30 pg (28-32) 12/14/18 19:41 MCHC 34 % (32-34) 12/14/18 19:41 RDW 15.2 % (13.2-15.2) 12/14/18 19:41 Plt Count 179 K/mm3 (140-440) 12/14/18 19:41 Lymph % (Auto) 13.3 % (13.4-35.0) L 12/10/18 11:02 Powell % (Auto) 6.1 % (0.0-7.3) 12/10/18 11:02 Eos % (Auto) 0.2 % (0.0-4.3) 12/10/18 11:02 Baso % (Auto) 0.7 % (0.0-1.8) 12/10/18 11:02 Lymph # 1.3 K/mm3 (1.2-5.4) 12/10/18 11:02 Powell # 0.6 K/mm3 (0.0-0.8) 12/10/18 11:02 Eos # 0.0 K/mm3 (0.0-0.4) 12/10/18 11:02 Baso # 0.1 K/mm3 (0.0-0.1) 12/10/18 11:02 Add Manual Diff Complete 12/14/18 19:41 Total Counted 100 12/14/18 19:41 Seg Neutrophils % Manufacturing Engineering Professor 12/14/18 19:41 Seg Neuts % (Manual) 89.0 % (40.0-70.0) H 12/14/18 19:41 Band Neutrophils % 0 % 12/14/18 19:41 Lymphocytes % (Manual) 5.0 % (13.4-35.0) L 12/14/18 19:41 Reactive Lymphs % (Man) 0 % 12/14/18 19:41 Monocytes % (Manual) 6.0 % (0.0-7.3) 12/14/18 19:41 Eosinophils % (Manual) 0 % (0.0-4.3) 12/14/18 19:41 Basophils % (Manual) 0 % (0.0-1.8) 12/14/18 19:41 Metamyelocytes % 0 % 12/14/18 19:41 Myelocytes % 0 % 12/14/18 19:41 Promyelocytes % 0 % 12/14/18 19:41 Blast Cells % 0 % 12/14/18 19:41 Nucleated RBC % Not Reportable 12/14/18 19:41 Seg Neutrophils # 8.0 K/mm3 (1.8-7.7) H 12/10/18 11:02 Seg Neutrophils # Man 10.5 K/mm3 (1.8-7.7) H 12/14/18 19:41 Band Neutrophils # 0.0 K/mm3 12/14/18 19:41 Lymphocytes # (Manual) 0.6 K/mm3 (1.2-5.4) L 12/14/18 19:41 Abs React Lymphs (Man) 0.0 K/mm3 12/14/18 19:41 Monocytes # (Manual) 0.7 K/mm3 (0.0-0.8) 12/14/18 19:41 Eosinophils # (Manual) 0.0 K/mm3 (0.0-0.4) 12/14/18 19:41 Basophils # (Manual) 0.0 K/mm3 (0.0-0.1) 12/14/18 19:41 Metamyelocytes # 0.0 K/mm3 12/14/18 19:41 Myelocytes # 0.0 K/mm3 12/14/18 19:41 Promyelocytes # 0.0 K/mm3 12/14/18 19:41 Blast Cells # 0.0 K/mm3 12/14/18 19:41 WBC Morphology Not Reportable 12/14/18 19:41 Hypersegmented Neuts Not Reportable 12/14/18 19:41 Hyposegmented Neuts Not Reportable 12/14/18 19:41 Hypogranular Neuts Not Reportable 12/14/18 19:41 Smudge Cells Not Reportable 12/14/18 19:41 Toxic Granulation Not Reportable 12/14/18 19:41 Toxic Vacuolation Not Reportable 12/14/18 19:41 Dohle Bodies Not Reportable 12/14/18 19:41 Pelger-Huet Anomaly Not Reportable 12/14/18 19:41 Valentín Rods Not Reportable 12/14/18 19:41 Platelet Estimate Consistent w auto 12/14/18 19:41 Clumped Platelets Not Reportable 12/14/18 19:41 Plt Clumps, EDTA Not Reportable 12/14/18 19:41 Large Platelets Not Reportable 12/14/18 19:41 Giant Platelets Not Reportable 12/14/18 19:41 Platelet Satelliting Not Reportable 12/14/18 19:41 Plt Morphology Comment Not Reportable 12/14/18 19:41 RBC Morphology Not Reportable 12/14/18 19:41 Dimorphic RBCs Not Reportable 12/14/18 19:41 Polychromasia Not Reportable 12/14/18 19:41 Hypochromasia Not Reportable 12/14/18 19:41 Poikilocytosis Few 12/14/18 19:41 Anisocytosis 1+ 12/14/18 19:41 Microcytosis Not Reportable 12/14/18 19:41 Macrocytosis Not Reportable 12/14/18 19:41 Spherocytes Not Reportable 12/14/18 19:41 Pappenheimer Bodies Not Reportable 12/14/18 19:41 Sickle Cells Not Reportable 12/14/18 19:41 Target Cells Not Reportable 12/14/18 19:41 Tear Drop Cells Not Reportable 12/14/18 19:41 Ovalocytes Not Reportable 12/14/18 19:41 Helmet Cells Not Reportable 12/14/18 19:41 [place] Bodies Not Reportable 12/14/18 19:41 [place] Rings Not Reportable 12/14/18 19:41 [place] Cells Not Reportable 12/14/18 19:41 Bite Cells Not Reportable 12/14/18 19:41 Crenated Cell Not Reportable 12/14/18 19:41 Elliptocytes Not Reportable 12/14/18 19:41 Acanthocytes (Spur) Not Reportable 12/14/18 19:41 Rouleaux Not Reportable 12/14/18 19:41 Hemoglobin C Crystals Not Reportable 12/14/18 19:41 Schistocytes Not Reportable 12/14/18 19:41 Malaria parasites Not Reportable 12/14/18 19:41 Hever Bodies Not Reportable 12/14/18 19:41 Hem Pathologist Commnt No 12/14/18 19:41 PT 13.5 Sec. (12.2-14.9) 12/10/18 11:02 INR 0.97 (0.87-1.13) 12/10/18 11:02 APTT 28.6 Sec. (24.2-36.6) 12/10/18 11:02 Heparin Anti-Xa Level 0.19 U.I./ml (0.3-0.7) L 12/15/18 04:37 Sodium 137 mmol/L (137-145) 12/15/18 04:37 Potassium 4.3 mmol/L (3.6-5.0) 12/15/18 04:37 Chloride 102.3 mmol/L (98-107) 12/15/18 04:37 Carbon Dioxide 22 mmol/L (22-30) 12/15/18 04:37 Anion Gap 17 mmol/L 12/15/18 04:37 BUN 10 mg/dL (9-20) 12/15/18 04:37 Creatinine 0.8 mg/dL (0.8-1.5) 12/15/18 04:37 Estimated GFR > 60 ml/min 12/15/18 04:37 BUN/Creatinine Ratio 13 % 12/15/18 04:37 Glucose 128 mg/dL (75-100) H 12/15/18 04:37 Calcium 7.5 mg/dL (8.4-10.2) L 12/15/18 04:37 Troponin T < 0.010 ng/mL (0.00-0.029) 12/13/18 07:13 Albumin 0.6 g/dL (3.9-5) L 12/14/18 15:48 Blood Type A POSITIVE 12/13/18 13:21 Antibody Screen Negative 12/13/18 13:21 Crossmatch See Detail 12/13/18 13:21 Nutrition/Malnutrition Assess - Dietary Evaluation Nutrition/Malnutrition Findings: Nutrition Notes Start: 12/11/18 11:02 Freq: Status: Active Protocol: Document 12/11/18 11:03 MARIKA (Rec: 12/11/18 11:03 MARIKA [email or web address]) Nutrition Notes Need for Assessment generated from: mass spectrometry specialist Initial or Follow up Brief Note Subjective/Other Information Pt screened for skin risk, however, Alphonso score is 20. Will assess upon further consult or LOS.
[2018-12-16] MEDS: LOPRESSOR IV SCH ×5 (00:58→23:16)
[2018-12-16] MEDS: MORPHINE IV PRN ×3 (04:35→21:43)
[2018-12-16 04:51] LABS: Hemoglobin 12.9 gm/dl (11.8-15.2)
--- NOTE | 2018-12-16 09:51 | Progress Note ---
Assessment and Plan Occlusion/Thrombosis infrarenal aorta Doing well postoperatively continues to have incisional pain. Denies leg pain. Should continue to convert to oral pain medications and try and use IV for breakthrough pain. Continue with Heparin Regular intensity Encourage mobility. Get OOB to chair and ambulate with assistance as tolerates. Not passing gas. Bowel sounds present hypoactive. Will start Dulcolax supp until first bowel movement. Remove NG tube and start clear liquids slowly. Continue with Cepacol lozenges for sore throat, now ice chips may also help. Continue and encourage Incentive spirometry Subjective Date of service: 12/16/18 Principal diagnosis: PVD, infrarenal aortic occlusion Interval history: He is 48 year Black male POD 2 Aortobifemoral bypass. He continues to complain of abdominal incisional pain and sore throat. He denies passing gas. He denies any leg pain. Objective - Constitutional Vitals: Vital Signs - 12hr 12/15/18 12/15/18 12/15/18 21:45 22:00 22:15 Temperature Pulse Rate 98 H 100 H 100 H Respiratory 26 H 30 H 29 H Rate Blood Pressure 121/73 128/77 121/74 O2 Sat by Pulse 97 98 97 Oximetry 12/15/18 12/15/18 12/15/18 22:30 22:45 23:01 Temperature Pulse Rate 99 H 106 H 103 H Respiratory 33 H 32 H 30 H Rate Blood Pressure 127/76 135/80 135/80 O2 Sat by Pulse 96 97 94 Oximetry 12/15/18 12/15/18 12/15/18 23:06 23:15 23:30 Temperature Pulse Rate 103 H 104 H Respiratory 31 H 30 H 25 H Rate Blood Pressure 120/71 120/71 O2 Sat by Pulse 94 94 Oximetry 12/15/18 12/15/18 12/16/18 23:45 23:52 00:00 Temperature 100.2 F H 100.2 F H Pulse Rate 101 H 99 H Respiratory 27 H 27 H Rate Blood Pressure 124/71 131/72 O2 Sat by Pulse 94 95 Oximetry 12/16/18 12/16/18 12/16/18 00:15 00:30 00:45 Temperature Pulse Rate 100 H 101 H 96 H Respiratory 28 H 29 H 25 H Rate Blood Pressure 137/75 128/76 122/75 O2 Sat by Pulse 97 96 97 Oximetry 12/16/18 12/16/18 12/16/18 00:58 01:00 01:15 Temperature Pulse Rate 99 H 98 H 92 H Respiratory 29 H 31 H Rate Blood Pressure 122/75 123/72 124/81 O2 Sat by Pulse 97 97 Oximetry 12/16/18 12/16/18 12/16/18 01:30 01:45 02:00 Temperature Pulse Rate 94 H 93 H 93 H Respiratory 20 13 15 Rate Blood Pressure 128/81 120/75 129/79 O2 Sat by Pulse 96 96 97 Oximetry 12/16/18 12/16/18 12/16/18 02:15 02:30 02:45 Temperature Pulse Rate 93 H 100 H 96 H Respiratory 20 32 H 26 H Rate Blood Pressure 120/75 139/86 120/81 O2 Sat by Pulse 97 97 98 Oximetry 12/16/18 12/16/18 12/16/18 03:00 03:15 03:30 Temperature Pulse Rate 97 H 98 H 100 H Respiratory 19 25 H 28 H Rate Blood Pressure 131/79 126/74 129/78 O2 Sat by Pulse 98 95 96 Oximetry 12/16/18 12/16/18 12/16/18 03:45 04:00 04:15 Temperature 100.9 F H Pulse Rate 98 H 89 97 H Respiratory 28 H 24 27 H Rate Blood Pressure 131/83 140/86 143/86 O2 Sat by Pulse 98 98 97 Oximetry 12/16/18 12/16/18 12/16/18 04:30 04:35 04:45 Temperature Pulse Rate 91 H 97 H Respiratory 24 24 25 H Rate Blood Pressure 134/71 126/76 O2 Sat by Pulse 97 98 Oximetry 12/16/18 12/16/18 12/16/18 05:00 05:15 05:30 Temperature Pulse Rate 101 H 97 H 96 H Respiratory 24 22 21 Rate Blood Pressure 130/77 122/72 129/78 O2 Sat by Pulse 97 97 97 Oximetry 12/16/18 12/16/18 12/16/18 05:45 06:00 06:08 Temperature Pulse Rate 96 H 95 H 95 H Respiratory 24 22 Rate Blood Pressure 131/77 135/82 135/82 O2 Sat by Pulse 98 98 Oximetry 12/16/18 06:15 Temperature Pulse Rate 89 Respiratory 23 Rate Blood Pressure 127/81 O2 Sat by Pulse 98 Oximetry General appearance: Present: well-nourished - EENT ENT: hearing intact, clear oral mucosa - Neck Neck: supple, normal ROM - Respiratory Respiratory effort: normal, other (nonlabored at rest) Respiratory: bilateral: CTA - Cardiovascular Rhythm: regular Extremities: no ischemia, abnormal (Warm dry Right DP/PT pulses present with doppler Left DP pulses palpable +2) - Gastrointestinal General gastrointestinal: Present: soft, other (Dressings dry intact Bowel sounds present hypoactive ) - Neurologic Neurologic: CNII-XII intact, no focal deficits, moves all extremities - Psychiatric Psychiatric: appropriate mood/affect, memory intact, cooperative - Labs CBC & Chem 7: 12/16/18 03:57 12/15/18 04:37 Labs: Abnormal lab results 12/16/18 12/16/18 Range/Units 03:57 05:38 Plt Count 139 L (140-440) K/mm3 Heparin Anti-Xa Level 0.12 L (0.3-0.7) U.I./ml Medications & Allergies - Medications Allergies/Adverse Reactions: Allergies No Known Allergies Allergy (Verified 12/10/18 07:59) Home Medications: Home Medications Medication Instructions Recorded Confirmed Last Taken Type AtorvaSTATin [Lipitor] 40 mg PO QHS 12/10/18 12/10/18 12/09/18 History Losartan/Hydrochlorothiazide 1 each PO QDAY 12/10/18 12/10/18 12/09/18 History [Hyzaar 100-12.5 TAB] Active Medications: Generic Name Dose Route Start Last Admin Trade Name Freq PRN Reason Stop Dose Admin Acetaminophen 650 mg 12/10/18 14:16 Tylenol PO Q4H PRN Pain MILD(1-3)/Fever >100.5/LUGO Albuterol 2.5 mg 12/10/18 14:16 Proventil IH Q4HRT PRN Shortness Of Breath Aspirin 325 mg 12/12/18 14:00 12/15/18 11:33 Aspirin PO Not Given QDAY [facility] Atorvastatin Calcium 40 mg 12/13/18 22:00 12/15/18 21:17 Lipitor PO Not Given QHS [facility] Benzocaine/Menthol 1 each 12/15/18 18:53 12/15/18 21:25 Cepacol X Strength MM 1 each Q2HR PRN Administration Sore Throat Bisacodyl 10 mg 12/16/18 09:34 Dulcolax [place] QDAY PRN Bowel Movement Hydrochlorothiazide 12.5 mg 12/13/18 10:00 12/15/18 11:34 Hctz PO Not Given QDAY ALESHA Heparin Sodium/Sodium Chloride 25,000 unit in 500 mls @ 18 mls/hr 12/15/18 00:01 12/16/18 06:33 Heparin/ 0.45% Nacl-25,000 Unit/500 Ml IV 950 units/hr TITR ALESHA 19 mls/hr Titration Protocol 900 UNITS/HR Sodium Chloride 1,000 mls @ 125 mls/hr 12/14/18 18:00 12/14/18 22:48 Nacl 0.9% 1000 Ml IV 125 mls/hr DIRECT ALESHA Administration Nicardipine HCl 50 mg/ Sodium 250 mls @ 25 mls/hr 12/15/18 12:00 12/16/18 00:59 Chloride IV 2.5 mg/hr TITR ALESHA 12.5 mls/hr Titration Protocol 5 MG/HR Losartan Potassium 100 mg 12/13/18 10:00 12/15/18 11:34 Cozaar PO Not Given QDAY ALESHA Metoprolol Tartrate 5 mg 12/14/18 18:00 12/16/18 06:08 Lopressor IV 5 mg Q6HR ALESHA Administration Morphine Sulfate 2 mg 12/14/18 17:29 12/15/18 07:45 Morphine IV 2 mg Q4H PRN Administration Pain, Moderate (4-6) Morphine Sulfate 4 mg 12/14/18 17:29 12/16/18 04:35 Morphine IV 4 mg Q4H PRN Administration Pain , Severe (7-10) Naloxone HCl 0.1 mg 12/14/18 17:29 Narcan 0.4 Mg/1 Ml IV Q2MIN PRN Res Rate </= 8 or 02 SAT < 92% Ondansetron HCl 4 mg 12/10/18 14:16 Zofran IV Q8H PRN Nausea And Vomiting Oxycodone/Acetaminophen 1 tab 12/10/18 14:16 Percocet 5/325 PO Q6H PRN Pain, Moderate (4-6) Pantoprazole Sodium 40 mg 12/14/18 18:00 12/15/18 11:42 Protonix IV 40 mg QDAY ALESHA Administration Sodium Chloride 10 ml 12/10/18 22:00 12/15/18 21:19 Sodium Chloride Flush Syringe 10 Ml IV 10 ml BID ALESHA Administration Sodium Chloride 10 ml 12/10/18 14:16 12/15/18 18:39 Sodium Chloride Flush Syringe 10 Ml IV 10 ml PRN PRN Administration LINE FLUSH
[2018-12-16] MEDS: PROTONIX IV SCH (09:59)
[2018-12-16] MEDS: COZAAR PO SCH (10:00)
[2018-12-16] MEDS ORDERED: DULCOLAX PR PRN (10:00)
[2018-12-16] MEDS: HCTZ PO SCH (10:00)
[2018-12-16] MEDS: ASPIRIN PO SCH (10:01)
[2018-12-16] MEDS: CARDENE 50 MG in NACL 0.9% 250ML 230 ML IV SCH (10:04)
[2018-12-16] MEDS: SODIUM CHLORIDE FLUSH SYRINGE 10 ML IV SCH (10:51)
--- NOTE | 2018-12-16 11:27 | Progress Note ---
Assessment and Plan Assessment and plan: 48-year-old man who presented with bilateral lower extremity pain worse on the right, is also complaining of numbness and paresthesias of both lower extremities. The symptoms began acutely prior to patient's. Hospital course the patient was found to have occlusion/thrombosis of the infrarenal aorta. He has been seen by vascular surgeon. He is currently being anticoagulated with heparin drip, he was seen by cardiology, had echo and stress test which were negative, per cardiology he is optimized for planned vascular surgery, sp aortobifemoral bypass 12/14 -Has been counseled about tobacco cessation, nicotine patches as needed -optimized meds for chronic conditions Diagnoses Occlusion/thrombosis of the infrarenal aorta Nicotine dependence htn hld History Interval history: Review of systems Constitutional: No fevers, no malaise, no joint pains CVS: No chest pain, no orthopnea, no dyspnea on exertion, no pedal edema GI: No abdominal pain, no diarrhea, no vomiting, no constipation Respiratory: No shortness of breath, no wheezing, no coughing Hospitalist Physical - Physical exam Narrative exam: General.: Appears well, no distress, nontoxic HEENT: Moist mucous membranes, extraocular muscles intact, no lymphadenopathy Neck: supple Cardiac: S1-S2 heard Lungs: clear to auscultation bilaterally Abdomen: soft , nontender, nondistended, bowel sounds positive Extremities: No gross edema Skin: no rash or lesions Neurologic: no gross focal deficits Psych: calm, and cooperative - Constitutional Vitals: Temp Pulse Resp BP Pulse Ox 100.9 F H 97 H 23 141/92 98 12/16/18 04:00 12/16/18 10:00 12/16/18 06:15 12/16/18 10:00 12/16/18 06:15 General appearance: Present: well-nourished Results - Labs CBC & Chem 7: 12/16/18 03:57 12/15/18 04:37 Labs: Laboratory Last Values WBC 11.8 K/mm3 (4.5-11.0) H 12/14/18 19:41 RBC 4.64 M/mm3 (3.65-5.03) 12/14/18 19:41 Hgb 12.9 gm/dl (11.8-15.2) 12/16/18 03:57 Hct 38.0 % (35.5-45.6) 12/16/18 03:57 MCV 91 fl (84-94) 12/14/18 19:41 MCH 30 pg (28-32) 12/14/18 19:41 MCHC 34 % (32-34) 12/14/18 19:41 RDW 15.2 % (13.2-15.2) 12/14/18 19:41 Plt Count 139 K/mm3 (140-440) L 12/16/18 03:57 Lymph % (Auto) 13.3 % (13.4-35.0) L 12/10/18 11:02 [place] % (Auto) 6.1 % (0.0-7.3) 12/10/18 11:02 Eos % (Auto) 0.2 % (0.0-4.3) 12/10/18 11:02 Baso % (Auto) 0.7 % (0.0-1.8) 12/10/18 11:02 Lymph # 1.3 K/mm3 (1.2-5.4) 12/10/18 11:02 [place] # 0.6 K/mm3 (0.0-0.8) 12/10/18 11:02 Eos # 0.0 K/mm3 (0.0-0.4) 12/10/18 11:02 Baso # 0.1 K/mm3 (0.0-0.1) 12/10/18 11:02 Add Manual Diff Complete 12/14/18 19:41 Total Counted 100 12/14/18 19:41 Seg Neutrophils % [employer] 12/14/18 19:41 Seg Neuts % (Manual) 89.0 % (40.0-70.0) H 12/14/18 19:41 Band Neutrophils % 0 % 12/14/18 19:41 Lymphocytes % (Manual) 5.0 % (13.4-35.0) L 12/14/18 19:41 Reactive Lymphs % (Man) 0 % 12/14/18 19:41 Monocytes % (Manual) 6.0 % (0.0-7.3) 12/14/18 19:41 Eosinophils % (Manual) 0 % (0.0-4.3) 12/14/18 19:41 Basophils % (Manual) 0 % (0.0-1.8) 12/14/18 19:41 Metamyelocytes % 0 % 12/14/18 19:41 Myelocytes % 0 % 12/14/18 19:41 Promyelocytes % 0 % 12/14/18 19:41 Blast Cells % 0 % 12/14/18 19:41 Nucleated RBC % Not Reportable 12/14/18 19:41 Seg Neutrophils # 8.0 K/mm3 (1.8-7.7) H 12/10/18 11:02 Seg Neutrophils # Man 10.5 K/mm3 (1.8-7.7) H 12/14/18 19:41 Band Neutrophils # 0.0 K/mm3 12/14/18 19:41 Lymphocytes # (Manual) 0.6 K/mm3 (1.2-5.4) L 12/14/18 19:41 Abs React Lymphs (Man) 0.0 K/mm3 12/14/18 19:41 Monocytes # (Manual) 0.7 K/mm3 (0.0-0.8) 12/14/18 19:41 Eosinophils # (Manual) 0.0 K/mm3 (0.0-0.4) 12/14/18 19:41 Basophils # (Manual) 0.0 K/mm3 (0.0-0.1) 12/14/18 19:41 Metamyelocytes # 0.0 K/mm3 12/14/18 19:41 Myelocytes # 0.0 K/mm3 12/14/18 19:41 Promyelocytes # 0.0 K/mm3 12/14/18 19:41 Blast Cells # 0.0 K/mm3 12/14/18 19:41 WBC Morphology Not Reportable 12/14/18 19:41 Hypersegmented Neuts Not Reportable 12/14/18 19:41 Hyposegmented Neuts Not Reportable 12/14/18 19:41 Hypogranular Neuts Not Reportable 12/14/18 19:41 Smudge Cells Not Reportable 12/14/18 19:41 Toxic Granulation Not Reportable 12/14/18 19:41 Toxic Vacuolation Not Reportable 12/14/18 19:41 Dohle Bodies Not Reportable 12/14/18 19:41 Pelger-Huet Anomaly Not Reportable 12/14/18 19:41 Valentín Rods Not Reportable 12/14/18 19:41 Platelet Estimate Consistent w auto 12/14/18 19:41 Clumped Platelets Not Reportable 12/14/18 19:41 Plt Clumps, EDTA Not Reportable 12/14/18 19:41 Large Platelets Not Reportable 12/14/18 19:41 Giant Platelets Not Reportable 12/14/18 19:41 Platelet Satelliting Not Reportable 12/14/18 19:41 Plt Morphology Comment Not Reportable 12/14/18 19:41 RBC Morphology Not Reportable 12/14/18 19:41 Dimorphic RBCs Not Reportable 12/14/18 19:41 Polychromasia Not Reportable 12/14/18 19:41 Hypochromasia Not Reportable 12/14/18 19:41 Poikilocytosis Few 12/14/18 19:41 Anisocytosis 1+ 12/14/18 19:41 Microcytosis Not Reportable 12/14/18 19:41 Macrocytosis Not Reportable 12/14/18 19:41 Spherocytes Not Reportable 12/14/18 19:41 Pappenheimer Bodies Not Reportable 12/14/18 19:41 Sickle Cells Not Reportable 12/14/18 19:41 Target Cells Not Reportable 12/14/18 19:41 Tear Drop Cells Not Reportable 12/14/18 19:41 Ovalocytes Not Reportable 12/14/18 19:41 Helmet Cells Not Reportable 12/14/18 19:41 [place] Bodies Not Reportable 12/14/18 19:41 [place] Rings Not Reportable 12/14/18 19:41 [place] Cells Not Reportable 12/14/18 19:41 Bite Cells Not Reportable 12/14/18 19:41 Crenated Cell Not Reportable 12/14/18 19:41 Elliptocytes Not Reportable 12/14/18 19:41 Acanthocytes (Spur) Not Reportable 12/14/18 19:41 Rouleaux Not Reportable 12/14/18 19:41 Hemoglobin C Crystals Not Reportable 12/14/18 19:41 Schistocytes Not Reportable 12/14/18 19:41 Malaria parasites Not Reportable 12/14/18 19:41 [place]ver Bodies Not Reportable 12/14/18 19:41 Hem Pathologist Commnt No 12/14/18 19:41 PT 13.5 Sec. (12.2-14.9) 12/10/18 11:02 INR 0.97 (0.87-1.13) 12/10/18 11:02 APTT 28.6 Sec. (24.2-36.6) 12/10/18 11:02 Heparin Anti-Xa Level 0.12 U.I./ml (0.3-0.7) L 12/16/18 05:38 Sodium 137 mmol/L (137-145) 12/15/18 04:37 Potassium 4.3 mmol/L (3.6-5.0) 12/15/18 04:37 Chloride 102.3 mmol/L (98-107) 12/15/18 04:37 Carbon Dioxide 22 mmol/L (22-30) 12/15/18 04:37 Anion Gap 17 mmol/L 12/15/18 04:37 BUN 10 mg/dL (9-20) 12/15/18 04:37 Creatinine 0.8 mg/dL (0.8-1.5) 12/15/18 04:37 Estimated GFR > 60 ml/min 12/15/18 04:37 BUN/Creatinine Ratio 13 % 12/15/18 04:37 Glucose 128 mg/dL (75-100) H 12/15/18 04:37 Calcium 7.5 mg/dL (8.4-10.2) L 12/15/18 04:37 Troponin T < 0.010 ng/mL (0.00-0.029) 12/13/18 07:13 Albumin 0.6 g/dL (3.9-5) L 12/14/18 15:48 Blood Type A POSITIVE 12/13/18 13:21 Antibody Screen Negative 12/13/18 13:21 Crossmatch See Detail 12/13/18 13:21 Nutrition/Malnutrition Assess - Dietary Evaluation Nutrition/Malnutrition Findings: Nutrition Notes Start: 12/11/18 11:02 Freq: Status: Active Protocol: Document 12/11/18 11:03 MARIKA (Rec: 12/11/18 11:03 MARIKA [id number]) Nutrition Notes Need for Assessment generated from: capsule inspector Initial or Follow up Brief Note Subjective/Other Information Pt screened for skin risk, however, Alphonso score is 20. Will assess upon further consult or LOS.
--- NOTE | 2018-12-16 12:28 | Progress Note ---
Assessment and Plan 48 y/o male with PVD, admitted post of from aorto-fem bypass 1. Stop cardene and see if BP can be controlled with PO meds 2. May need PRN IV therapy whil own this. 3. Appears stable for transfer. Subjective Date of service: 12/16/18 Principal diagnosis: PVD, infrarenal aortic occlusion Interval history: Reviewed surgery note from yesterday. Per nursing foot is better. NG tube is now out and given or medications this am. Objective - Constitutional Vitals: Vital Signs - 12hr 12/16/18 12/16/18 12/16/18 00:30 00:45 00:58 Temperature Pulse Rate 101 H 96 H 99 H Respiratory 29 H 25 H Rate Blood Pressure 128/76 122/75 122/75 O2 Sat by Pulse 96 97 Oximetry 12/16/18 12/16/18 12/16/18 01:00 01:15 01:30 Temperature Pulse Rate 98 H 92 H 94 H Respiratory 29 H 31 H 20 Rate Blood Pressure 123/72 124/81 128/81 O2 Sat by Pulse 97 97 96 Oximetry 12/16/18 12/16/18 12/16/18 01:45 02:00 02:15 Temperature Pulse Rate 93 H 93 H 93 H Respiratory 13 15 20 Rate Blood Pressure 120/75 129/79 120/75 O2 Sat by Pulse 96 97 97 Oximetry 12/16/18 12/16/18 12/16/18 02:30 02:45 03:00 Temperature Pulse Rate 100 H 96 H 97 H Respiratory 32 H 26 H 19 Rate Blood Pressure 139/86 120/81 131/79 O2 Sat by Pulse 97 98 98 Oximetry 12/16/18 12/16/18 12/16/18 03:15 03:30 03:45 Temperature Pulse Rate 98 H 100 H 98 H Respiratory 25 H 28 H 28 H Rate Blood Pressure 126/74 129/78 131/83 O2 Sat by Pulse 95 96 98 Oximetry 12/16/18 12/16/18 12/16/18 04:00 04:15 04:30 Temperature 100.9 F H Pulse Rate 89 97 H 91 H Respiratory 24 27 H 24 Rate Blood Pressure 140/86 143/86 134/71 O2 Sat by Pulse 98 97 97 Oximetry 12/16/18 12/16/18 12/16/18 04:35 04:45 05:00 Temperature Pulse Rate 97 H 101 H Respiratory 24 25 H 24 Rate Blood Pressure 126/76 130/77 O2 Sat by Pulse 98 97 Oximetry 12/16/18 12/16/18 12/16/18 05:15 05:30 05:45 Temperature Pulse Rate 97 H 96 H 96 H Respiratory 22 21 24 Rate Blood Pressure 122/72 129/78 131/77 O2 Sat by Pulse 97 97 98 Oximetry 12/16/18 12/16/18 12/16/18 06:00 06:08 06:15 Temperature Pulse Rate 95 H 95 H 89 Respiratory 22 23 Rate Blood Pressure 135/82 135/82 127/81 O2 Sat by Pulse 98 98 Oximetry 12/16/18 12/16/18 10:00 12:00 Temperature 99.4 F Pulse Rate 97 H Respiratory Rate Blood Pressure 141/92 O2 Sat by Pulse 98 Oximetry General appearance: Present: no acute distress, well-nourished - EENT Eyes: PERRL, EOM intact ENT: hearing intact - Neck Neck: supple - Respiratory Respiratory effort: normal Respiratory: bilateral: CTA - Labs CBC & Chem 7: 12/16/18 03:57 12/15/18 04:37 Labs: Abnormal lab results 12/16/18 12/16/18 Range/Units 03:57 05:38 Plt Count 139 L (140-440) K/mm3 Heparin Anti-Xa Level 0.12 L (0.3-0.7) U.I./ml Medications & Allergies - Medications Allergies/Adverse Reactions: Allergies No Known Allergies Allergy (Verified 12/10/18 07:59) Home Medications: Home Medications Medication Instructions Recorded Confirmed Last Taken Type AtorvaSTATin [Lipitor] 40 mg PO QHS 12/10/18 12/10/18 12/09/18 History Losartan/Hydrochlorothiazide 1 each PO QDAY 12/10/18 12/10/18 12/09/18 History [Hyzaar 100-12.5 TAB] Active Medications: Generic Name Dose Route Start Last Admin Trade Name Freq PRN Reason Stop Dose Admin Acetaminophen 650 mg 12/10/18 14:16 Tylenol PO Q4H PRN Pain MILD(1-3)/Fever >100.5/LUGO Albuterol 2.5 mg 12/10/18 14:16 Proventil IH Q4HRT PRN Shortness Of Breath Aspirin 325 mg 12/12/18 14:00 12/16/18 10:01 Aspirin PO 325 mg QDAY ALESHA Administration Atorvastatin Calcium 40 mg 12/13/18 22:00 12/15/18 21:17 Lipitor PO Not Given QHS [facility] Benzocaine/Menthol 1 each 12/15/18 18:53 12/15/18 21:25 Cepacol X Strength MM 1 each Q2HR PRN Administration Sore Throat Bisacodyl 10 mg 12/16/18 10:00 Dulcolax [place] QDAY PRN Bowel Movement Hydrochlorothiazide 12.5 mg 12/13/18 10:00 12/16/18 10:00 Hctz PO 12.5 mg QDAY ALESHA Administration Heparin Sodium/Sodium Chloride 25,000 unit in 500 mls @ 18 mls/hr 12/15/18 00:01 12/16/18 06:33 Heparin/ 0.45% Nacl-25,000 Unit/500 Ml IV 950 units/hr TITR ALESHA 19 mls/hr Titration Protocol 900 UNITS/HR Sodium Chloride 1,000 mls @ 125 mls/hr 12/14/18 18:00 12/14/18 22:48 Nacl 0.9% 1000 Ml IV 125 mls/hr DIRECT ALESHA Administration Losartan Potassium 100 mg 12/13/18 10:00 12/16/18 10:00 Cozaar PO 100 mg QDAY ALESHA Administration Metoprolol Tartrate 5 mg 12/14/18 18:00 12/16/18 06:08 Lopressor IV 5 mg Q6HR ALESHA Administration Morphine Sulfate 2 mg 12/14/18 17:29 12/15/18 07:45 Morphine IV 2 mg Q4H PRN Administration Pain, Moderate (4-6) Morphine Sulfate 4 mg 12/14/18 17:29 12/16/18 09:59 Morphine IV 4 mg Q4H PRN Administration Pain , Severe (7-10) Naloxone HCl 0.1 mg 12/14/18 17:29 Narcan 0.4 Mg/1 Ml IV Q2MIN PRN Res Rate </= 8 or 02 SAT < 92% Ondansetron HCl 4 mg 12/10/18 14:16 Zofran IV Q8H PRN Nausea And Vomiting Oxycodone/Acetaminophen 1 tab 12/10/18 14:16 Percocet 5/325 PO Q6H PRN Pain, Moderate (4-6) Pantoprazole Sodium 40 mg 12/14/18 18:00 12/16/18 09:59 Protonix IV 40 mg QDAY ALESHA Administration Sodium Chloride 10 ml 12/10/18 22:00 12/15/18 21:19 Sodium Chloride Flush Syringe 10 Ml IV 10 ml BID ALESHA Administration Sodium Chloride 10 ml 12/10/18 14:16 12/15/18 18:39 Sodium Chloride Flush Syringe 10 Ml IV 10 ml PRN PRN Administration LINE FLUSH
[2018-12-16] MEDS: PERCOCET 5/325 PO PRN (19:52)
[2018-12-16] MEDS ORDERED: HEPARIN 10,000 UNITS/10 ML IV ONE (22:30)
[2018-12-16] MEDS: HEPARIN/ 0.45% NACL-25,000 UNIT/500 ML 25,000 UNIT/500 ML BAG IV SCH (22:34)
[2018-12-17] MEDS: LOPRESSOR IV SCH ×3 (05:39→21:57)
[2018-12-17] MEDS: MORPHINE IV PRN (05:46)
[2018-12-17] MEDS: HCTZ PO SCH (10:41)
[2018-12-17] MEDS: COZAAR PO SCH (10:41)
[2018-12-17] MEDS: PROTONIX IV SCH (10:42)
[2018-12-17] MEDS: ASPIRIN PO SCH (10:42)
[2018-12-17] MEDS: PERCOCET 5/325 PO PRN ×2 (10:51→21:58)
--- NOTE | 2018-12-17 12:23 | Progress Note ---
Assessment and Plan s/p aortobifemoral bypass POD 3 Plan: continue anticoagulation start regular diet, continue ambulation Subjective Date of service: 12/17/18 Principal diagnosis: PVD, infrarenal aortic occlusion Interval history: Patient doing well. Tolerating clears, flatus and BM+. OOB ambulating Objective - Exam Narrative Exam: Midline incision dressing removed, incision c/d/i, groin incisions intact. - Constitutional Vitals: Vital Signs - 12hr 12/17/18 12/17/18 12/17/18 05:39 05:46 06:16 Pulse Rate 84 Respiratory 18 18 Rate Blood Pressure 126/87 O2 Sat by Pulse Oximetry 12/17/18 10:00 Pulse Rate Respiratory Rate Blood Pressure O2 Sat by Pulse 96 Oximetry - Labs CBC & Chem 7: 12/16/18 03:57 12/15/18 04:37 Labs: Abnormal lab results 12/13/18 12/16/18 12/16/18 Range/Units 13:21 15:20 21:22 Heparin Anti-Xa Level 0.13 L < 0.10 L (0.3-0.7) U.I./ml Crossmatch See Detail 12/17/18 Range/Units 04:52 Heparin Anti-Xa Level 0.26 L (0.3-0.7) U.I./ml Crossmatch Medications & Allergies - Medications Allergies/Adverse Reactions: Allergies No Known Allergies Allergy (Verified 12/10/18 07:59) Home Medications: Home Medications Medication Instructions Recorded Confirmed Last Taken Type AtorvaSTATin [Lipitor] 40 mg PO QHS 12/10/18 12/10/18 12/09/18 History Losartan/Hydrochlorothiazide 1 each PO QDAY 12/10/18 12/10/18 12/09/18 History [Hyzaar 100-12.5 TAB] Active Medications: Generic Name Dose Route Start Last Admin Trade Name Freq PRN Reason Stop Dose Admin Acetaminophen 650 mg 12/10/18 14:16 Tylenol PO Q4H PRN Pain MILD(1-3)/Fever >100.5/LUGO Aspirin 325 mg 12/12/18 14:00 12/17/18 10:42 Aspirin PO 325 mg QDAY ALESHA Administration Atorvastatin Calcium 40 mg 12/13/18 22:00 12/16/18 21:38 Lipitor PO 40 mg QHS ALESHA Administration Benzocaine/Menthol 1 each 12/15/18 18:53 12/15/18 21:25 Cepacol X Strength MM 1 each Q2HR PRN Administration Sore Throat Bisacodyl 10 mg 12/16/18 10:00 12/17/18 05:47 Dulcolax [place] 10 mg QDAY PRN Administration Bowel Movement Hydrochlorothiazide 12.5 mg 12/13/18 10:00 12/17/18 10:41 Hctz PO 12.5 mg QDAY ALESHA Administration Heparin Sodium/Sodium Chloride 25,000 unit in 500 mls @ 18 mls/hr 12/15/18 00:01 12/17/18 05:38 Heparin/ 0.45% Nacl-25,000 Unit/500 Ml IV 1,250 units/hr TITR ALESHA 25 mls/hr Titration Protocol 900 UNITS/HR Sodium Chloride 1,000 mls @ 125 mls/hr 12/14/18 18:00 12/14/18 22:48 Nacl 0.9% 1000 Ml IV 125 mls/hr DIRECT ALESHA Administration Losartan Potassium 100 mg 12/13/18 10:00 12/17/18 10:41 Cozaar PO 100 mg QDAY ALESHA Administration Metoprolol Tartrate 5 mg 12/14/18 18:00 12/17/18 05:39 Lopressor IV 5 mg Q6HR ALESHA Administration Morphine Sulfate 2 mg 12/14/18 17:29 12/17/18 05:46 Morphine IV 2 mg Q4H PRN Administration Pain, Moderate (4-6) Morphine Sulfate 4 mg 12/14/18 17:29 12/16/18 09:59 Morphine IV 4 mg Q4H PRN Administration Pain , Severe (7-10) Naloxone HCl 0.1 mg 12/14/18 17:29 Narcan 0.4 Mg/1 Ml IV Q2MIN PRN Res Rate </= 8 or 02 SAT < 92% Ondansetron HCl 4 mg 12/10/18 14:16 Zofran IV Q8H PRN Nausea And Vomiting Oxycodone/Acetaminophen 1 tab 12/10/18 14:16 12/17/18 10:51 Percocet 5/325 PO 1 tab Q6H PRN Administration Pain, Moderate (4-6) Pantoprazole Sodium 40 mg 12/14/18 18:00 03/01/19 10:42 Protonix IV 40 mg QDAY ALESHA Administration
--- NOTE | 2018-12-17 16:56 | Progress Note ---
Assessment and Plan Assessment and plan: Assessment and plan HTN continue meds Mixed Hyperlipidemia continue Lipitor s/p Aortobifemoral Bypass surgery post op care vasc surg inputs and reccs appreciated Chronic tobacco abuse counseled cessation Thrombocytopenia monitor closely bleeding precautions at all times Further pt mgt per hospital course Full code status Disposition Plan: per hospital course Total Time Spent with Patient (Minutes): 25 mins History Interval history: HPI My leg is numb History of present illness: 48 YO Male with Nicotine Dependence, PAD, HLD, HTN presents to ED for evaluation. Pt states that he has experienced Bilateral leg pain, numbness, and weakness over the past 2 weeks with acutely worsening symptoms over the past 12 hours. Pt states that symptoms are worse in his right leg. Pt states that pain is 6/10, constant, worse with ambulation as well as resting. Pt states that he is unable to ambulate and walks with a limp. Pt acknowledges rest pain. Pt transported to [facility] for further care and evaluation. Pt seen and evaluated in ED and found to have RLE Ischemia with suspected arterial occlusion. Pt denies fever, chills, CP, Palpitations, NVD, Erectile Dysfunction, NVD. Vascular surgery consulted. Pt initiated on Heparin drip and admitted to medical floor. Primary care physician is Dr. RIVERA Brief Hospital course Pt was admitted to the hospital medicine service, managed with anticoagulation, seen in consultation by Vas surgery and subsequently underwent revasculari zation with Aortabifemoral bypass surgery. Subjective" Pt seen and exam, son and mother by bedside, No new complaints,. He has decided to quit tobacco abuse. Hospitalist Physical - Constitutional Vitals: Temp Pulse Resp BP Pulse Ox 97.9 F 86 18 130/84 98 12/17/18 14:57 12/17/18 14:57 12/17/18 14:57 12/17/18 14:57 12/17/18 14:57 General appearance: Present: no acute distress, well-nourished - EENT ENT: hearing intact, clear oral mucosa - Neck Neck: Present: supple, normal ROM - Cardiovascular Rhythm: regular Heart Sounds: Present: S1 & S2 - Extremities Extremities: No edema, normal temperature, normal color - Abdominal General gastrointestinal: soft, non-tender, non-distended, normal bowel sounds - Integumentary Integumentary: Present: clear, warm, dry - Psychiatric Psychiatric: appropriate mood/affect, intact judgment & insight, memory intact, cooperative - Neurologic Neurologic: CNII-XII intact, moves all extremities - Allied Health Allied health notes reviewed: nursing, social work, case management Results - Labs CBC & Chem 7: 12/16/18 03:57 12/15/18 04:37 Labs: Laboratory Last Values WBC 11.8 K/mm3 (4.5-11.0) H 12/14/18 19:41 RBC 4.64 M/mm3 (3.65-5.03) 12/14/18 19:41 Hgb 12.9 gm/dl (11.8-15.2) 12/16/18 03:57 Hct 38.0 % (35.5-45.6) 12/16/18 03:57 MCV 91 fl (84-94) 12/14/18 19:41 MCH 30 pg (28-32) 12/14/18 19:41 MCHC 34 % (32-34) 12/14/18 19:41 RDW 15.2 % (13.2-15.2) 12/14/18 19:41 Plt Count 139 K/mm3 (140-440) L 12/16/18 03:57 Lymph % (Auto) 13.3 % (13.4-35.0) L 12/10/18 11:02 [place] % (Auto) 6.1 % (0.0-7.3) 12/10/18 11:02 Eos % (Auto) 0.2 % (0.0-4.3) 12/10/18 11:02 Baso % (Auto) 0.7 % (0.0-1.8) 12/10/18 11:02 Lymph # 1.3 K/mm3 (1.2-5.4) 12/10/18 11:02 [place] # 0.6 K/mm3 (0.0-0.8) 12/10/18 11:02 Eos # 0.0 K/mm3 (0.0-0.4) 12/10/18 11:02 Baso # 0.1 K/mm3 (0.0-0.1) 12/10/18 11:02 Add Manual Diff Complete 12/14/18 19:41 Total Counted 100 12/14/18 19:41 Seg Neutrophils % Patient Access 12/14/18 19:41 Seg Neuts % (Manual) 89.0 % (40.0-70.0) H 12/14/18 19:41 Band Neutrophils % 0 % 12/14/18 19:41 Lymphocytes % (Manual) 5.0 % (13.4-35.0) L 12/14/18 19:41 Reactive Lymphs % (Man) 0 % 12/14/18 19:41 Monocytes % (Manual) 6.0 % (0.0-7.3) 12/14/18 19:41 Eosinophils % (Manual) 0 % (0.0-4.3) 12/14/18 19:41 Basophils % (Manual) 0 % (0.0-1.8) 12/14/18 19:41 Metamyelocytes % 0 % 12/14/18 19:41 Myelocytes % 0 % 12/14/18 19:41 Promyelocytes % 0 % 12/14/18 19:41 Blast Cells % 0 % 12/14/18 19:41 Nucleated RBC % Not Reportable 12/14/18 19:41 Seg Neutrophils # 8.0 K/mm3 (1.8-7.7) H 12/10/18 11:02 Seg Neutrophils # Man 10.5 K/mm3 (1.8-7.7) H 12/14/18 19:41 Band Neutrophils # 0.0 K/mm3 12/14/18 19:41 Lymphocytes # (Manual) 0.6 K/mm3 (1.2-5.4) L 12/14/18 19:41 Abs React Lymphs (Man) 0.0 K/mm3 12/14/18 19:41 Monocytes # (Manual) 0.7 K/mm3 (0.0-0.8) 12/14/18 19:41 Eosinophils # (Manual) 0.0 K/mm3 (0.0-0.4) 12/14/18 19:41 Basophils # (Manual) 0.0 K/mm3 (0.0-0.1) 12/14/18 19:41 Metamyelocytes # 0.0 K/mm3 12/14/18 19:41 Myelocytes # 0.0 K/mm3 12/14/18 19:41 Promyelocytes # 0.0 K/mm3 12/14/18 19:41 Blast Cells # 0.0 K/mm3 12/14/18 19:41 WBC Morphology Not Reportable 12/14/18 19:41 Hypersegmented Neuts Not Reportable 12/14/18 19:41 Hyposegmented Neuts Not Reportable 12/14/18 19:41 Hypogranular Neuts Not Reportable 12/14/18 19:41 Smudge Cells Not Reportable 12/14/18 19:41 Toxic Granulation Not Reportable 12/14/18 19:41 Toxic Vacuolation Not Reportable 12/14/18 19:41 Dohle Bodies Not Reportable 12/14/18 19:41 Pelger-Huet Anomaly Not Reportable 12/14/18 19:41 Valentín Rods Not Reportable 12/14/18 19:41 Platelet Estimate Consistent w auto 12/14/18 19:41 Clumped Platelets Not Reportable 12/14/18 19:41 Plt Clumps, EDTA Not Reportable 12/14/18 19:41 Large Platelets Not Reportable 12/14/18 19:41 Giant Platelets Not Reportable 12/14/18 19:41 Platelet Satelliting Not Reportable 12/14/18 19:41 Plt Morphology Comment Not Reportable 12/14/18 19:41 RBC Morphology Not Reportable 12/14/18 19:41 Dimorphic RBCs Not Reportable 12/14/18 19:41 Polychromasia Not Reportable 12/14/18 19:41 Hypochromasia Not Reportable 12/14/18 19:41 Poikilocytosis Few 12/14/18 19:41 Anisocytosis 1+ 12/14/18 19:41 Microcytosis Not Reportable 12/14/18 19:41 Macrocytosis Not Reportable 12/14/18 19:41 Spherocytes Not Reportable 12/14/18 19:41 Pappenheimer Bodies Not Reportable 12/14/18 19:41 Sickle Cells Not Reportable 12/14/18 19:41 Target Cells Not Reportable 12/14/18 19:41 Tear Drop Cells Not Reportable 12/14/18 19:41 Ovalocytes Not Reportable 12/14/18 19:41 Helmet Cells Not Reportable 12/14/18 19:41 [place] Bodies Not Reportable 12/14/18 19:41 [place] Rings Not Reportable 12/14/18 19:41 Himanshu Cells Not Reportable 12/14/18 19:41 Bite Cells Not Reportable 12/14/18 19:41 Crenated Cell Not Reportable 12/14/18 19:41 Elliptocytes Not Reportable 12/14/18 19:41 Acanthocytes (Spur) Not Reportable 12/14/18 19:41 Rouleaux Not Reportable 12/14/18 19:41 Hemoglobin C Crystals Not Reportable 12/14/18 19:41 Schistocytes Not Reportable 12/14/18 19:41 Malaria parasites Not Reportable 12/14/18 19:41 Hever Bodies Not Reportable 12/14/18 19:41 Hem Pathologist Commnt No 12/14/18 19:41 PT 13.5 Sec. (12.2-14.9) 12/10/18 11:02 INR 0.97 (0.87-1.13) 12/10/18 11:02 APTT 28.6 Sec. (24.2-36.6) 12/10/18 11:02 Heparin Anti-Xa Level 0.27 U.I./ml (0.3-0.7) L 12/17/18 12:41 Sodium 137 mmol/L (137-145) 12/15/18 04:37 Potassium 4.3 mmol/L (3.6-5.0) 12/15/18 04:37 Chloride 102.3 mmol/L (98-107) 12/15/18 04:37 Carbon Dioxide 22 mmol/L (22-30) 12/15/18 04:37 Anion Gap 17 mmol/L 12/15/18 04:37 BUN 10 mg/dL (9-20) 12/15/18 04:37 Creatinine 0.8 mg/dL (0.8-1.5) 12/15/18 04:37 Estimated GFR > 60 ml/min 12/15/18 04:37 BUN/Creatinine Ratio 13 % 12/15/18 04:37 Glucose 128 mg/dL (75-100) H 12/15/18 04:37 Calcium 7.5 mg/dL (8.4-10.2) L 12/15/18 04:37 Troponin T < 0.010 ng/mL (0.00-0.029) 12/13/18 07:13 Albumin 0.6 g/dL (3.9-5) L 12/14/18 15:48 Blood Type A POSITIVE 12/13/18 13:21 Antibody Screen Negative 12/13/18 13:21 Crossmatch See Detail 12/13/18 13:21 - Imaging and Cardiology Chest x-ray: report reviewed CT scan - abdomen: report reviewed Nutrition/Malnutrition Assess - Dietary Evaluation Nutrition/Malnutrition Findings: Nutrition Notes Start: 12/11/18 11:02 Freq: Status: Active Protocol: Document 12/17/18 16:18 RM (Rec: 12/17/18 16:25 RM [id number]) Nutrition Notes Need for Assessment generated from: LOS Initial or Follow up Brief Note Current Diagnosis Hypertension Hyperlipidemia Other Pertinent Diagnosis arterial occlusion Current Diet Regular Labs/Tests Reviewed Pertinent Medications Reviewed Height 5 ft 8 in Weight 70.1 kg Usual Body Weight 75 kg [place] Body Weight (kg) 70.00 BMI 23.5 Weight change and time frame 6.5% wt loss X 1 week Subjective/Other Information Screened for LOS. Clear liquid diet in place earlier. Regular diet ordered later today. Pt stated that his appetite is good, that he drank all of his meals, and that he is very hungry. Stated UBW was 165 lbs a couple weeks ago. Burn Absent Trauma Absent Nutrition Intervention Follow-Up By: 12/21/18 Additional Comments Follow for stable intakes
[2018-12-17] MEDS: HEPARIN/ 0.45% NACL-25,000 UNIT/500 ML 25,000 UNIT/500 ML BAG IV SCH (20:46)
[2018-12-18] MEDS: LOPRESSOR IV SCH ×5 (00:22→23:46)
[2018-12-18 03:11] LABS: Hematocrit 32.1 % (35.5-45.6); Hemoglobin 11.1 gm/dl (11.8-15.2); Mean Corpuscular HGB Conc 35 % (32-34); Mean Corpuscular Volume 88 fl (84-94); Platelet Count 175 K/mm3 (140-440); Red Blood Count 3.64 M/mm3 (3.65-5.03); Red Cell Distribution Width 14.9 % (13.2-15.2)
[2018-12-18 03:22] LABS: BUN/Creatinine Ratio 10; Blood Urea Nitrogen 8 mg/dL (9-20); Calcium 8.5 mg/dL (8.4-10.2); Hemolysis Index 6
[2018-12-18] MEDS: HCTZ PO SCH (09:58)
[2018-12-18] MEDS: COZAAR PO SCH (09:58)
[2018-12-18] MEDS: ASPIRIN PO SCH (09:58)
[2018-12-18] MEDS: PROTONIX PO SCH (09:58)
[2018-12-18] MEDS: PERCOCET 5/325 PO PRN (10:02)
[2018-12-18] MEDS ORDERED: COZAAR PO SCH (10:36)
--- NOTE | 2018-12-18 11:37 | Progress Note ---
Assessment and Plan s/p aortobifemoral bypass POD 4 Plan: continue anticoagulation, change to oral - Eliquis ambulate, february d/c telemetry d/c planning Subjective Date of service: 12/18/18 Principal diagnosis: PVD, infrarenal aortic occlusion Interval history: Patient doing well. Tolerating regular diet, OOB Objective - Exam Narrative Exam: Midline incision and groin incisions intact. - Constitutional Vitals: Vital Signs - 12hr 12/18/18 12/18/18 12/18/18 00:22 04:35 05:49 Temperature 98.4 F Pulse Rate 88 73 73 Respiratory 16 Rate Blood Pressure 116/72 117/71 117/71 O2 Sat by Pulse 97 Oximetry 12/18/18 08:06 Temperature Pulse Rate 70 Respiratory Rate Blood Pressure O2 Sat by Pulse Oximetry - Labs CBC & Chem 7: 12/18/18 02:57 12/18/18 02:57 Labs: Abnormal lab results 12/17/18 12/17/18 12/18/18 Range/Units 12:41 20:01 02:57 RBC 3.64 L (3.65-5.03) M/mm3 Hgb 11.1 L (11.8-15.2) gm/dl Hct 32.1 L (35.5-45.6) % MCHC 35 H (32-34) % Heparin Anti-Xa Level 0.27 L 0.27 L (0.3-0.7) U.I./ml Potassium (3.6-5.0) mmol/L BUN (9-20) mg/dL Glucose (75-100) mg/dL 12/18/18 Range/Units 02:57 RBC (3.65-5.03) M/mm3 Hgb (11.8-15.2) gm/dl Hct (35.5-45.6) % MCHC (32-34) % Heparin Anti-Xa Level (0.3-0.7) U.I./ml Potassium 3.3 L D (3.6-5.0) mmol/L BUN 8 L (9-20) mg/dL Glucose 114 H (75-100) mg/dL Medications & Allergies - Medications Allergies/Adverse Reactions: Allergies No Known Allergies Allergy (Verified 12/10/18 07:59) Home Medications: Home Medications Medication Instructions Recorded Confirmed Last Taken Type AtorvaSTATin [Lipitor] 40 mg PO QHS 12/10/18 12/10/18 12/09/18 History Losartan/Hydrochlorothiazide 1 each PO QDAY 12/10/18 12/10/18 12/09/18 History [Hyzaar 100-12.5 TAB] Active Medications: Generic Name Dose Route Start Last Admin Trade Name Freq PRN Reason Stop Dose Admin Acetaminophen 650 mg 12/10/18 14:16 Tylenol PO Q4H PRN Pain MILD(1-3)/Fever >100.5/LUGO Apixaban 5 mg 12/18/18 12:00 Eliquis PO Q12HR ALESHA Protocol Aspirin 325 mg 12/12/18 14:00 12/18/18 09:58 Aspirin PO 325 mg QDAY ALESHA Administration Atorvastatin Calcium 40 mg 12/13/18 22:00 12/17/18 21:58 Lipitor PO 40 mg QHS ALESHA Administration Benzocaine/Menthol 1 each 12/15/18 18:53 12/15/18 21:25 Cepacol X Strength MM 1 each Q2HR PRN Administration Sore Throat Bisacodyl 10 mg 12/16/18 10:00 12/17/18 05:47 Dulcolax [place] 10 mg QDAY PRN Administration Bowel Movement Heparin Sodium/Sodium Chloride 25,000 unit in 500 mls @ 18 mls/hr 12/15/18 00:01 12/18/18 05:06 Heparin/ 0.45% Nacl-25,000 Unit/500 Ml IV 1,350 units/hr TITR ALESHA 27 mls/hr Titration Protocol 900 UNITS/HR Losartan Potassium 50 mg 12/18/18 10:36 Cozaar PO QDAY ALESHA Metoprolol Tartrate 5 mg 12/14/18 18:00 12/18/18 05:49 Lopressor IV 5 mg Q6HR ALESHA Administration Morphine Sulfate 2 mg 12/14/18 17:29 12/17/18 05:46 Morphine IV 2 mg Q4H PRN Administration Pain, Moderate (4-6) Morphine Sulfate 4 mg 12/14/18 17:29 12/16/18 09:59 Morphine IV 4 mg Q4H PRN Administration Pain , Severe (7-10) Naloxone HCl 0.1 mg 12/14/18 17:29 Narcan 0.4 Mg/1 Ml IV Q2MIN PRN Res Rate </= 8 or 02 SAT < 92% Ondansetron HCl 4 mg 12/10/18 14:16 Zofran IV Q8H PRN Nausea And Vomiting Oxycodone/Acetaminophen 1 tab 12/10/18 14:16 12/18/18 10:02 Percocet 5/325 PO 1 tab Q6H PRN Administration Pain, Moderate (4-6) Pantoprazole Sodium 40 mg 12/18/18 10:00 12/18/18 09:58 Protonix PO 40 mg DAILY ALESHA Administration Potassium Chloride 40 meq 12/18/18 11:00 K-Dur PO 12/20/18 10:59 QDAY ALESHA
[2018-12-18] MEDS: ELIQUIS PO SCH ×2 (11:55→22:08)
[2018-12-18] MEDS: K-DUR PO SCH (11:55)
--- NOTE | 2018-12-18 14:15 | Progress Note ---
Assessment and Plan Assessment and plan: PVD s/p Aortobifemoral Bypass surgery -vasc surg following Hypokalemia -On repletion, will monitor level HTN, comtrolled -continue meds Mixed Hyperlipidemia -continue Lipitor Thrombocytopenia -Level improved Chronic tobacco abuse -counseled on cessation Disp: for d/c when cleared by vascular surgery History Interval history: Pt has no new complaints Hospitalist Physical - Constitutional Vitals: Temp Pulse Resp BP Pulse Ox 98.8 F 70 18 123/77 97 12/18/18 07:57 12/18/18 13:03 12/18/18 07:57 12/18/18 13:03 12/18/18 13:03 General appearance: Present: no acute distress, well-nourished - EENT Eyes: Present: PERRL, EOM intact ENT: hearing intact, clear oral mucosa - Neck Neck: Present: supple - Respiratory Respiratory effort: normal Respiratory: bilateral: CTA - Cardiovascular Rhythm: regular Heart Sounds: Present: S1 & S2 - Extremities Extremities: No edema - Abdominal General gastrointestinal: soft, non-tender, non-distended, normal bowel sounds - Neurologic Neurologic: CNII-XII intact Results - Labs CBC & Chem 7: 12/18/18 02:57 12/18/18 02:57 Labs: Laboratory Last Values WBC 7.4 K/mm3 (4.5-11.0) 12/18/18 02:57 RBC 3.64 M/mm3 (3.65-5.03) L 12/18/18 02:57 Hgb 11.1 gm/dl (11.8-15.2) L 12/18/18 02:57 Hct 32.1 % (35.5-45.6) L 12/18/18 02:57 MCV 88 fl (84-94) 12/18/18 02:57 MCH 31 pg (28-32) 12/18/18 02:57 MCHC 35 % (32-34) H 12/18/18 02:57 RDW 14.9 % (13.2-15.2) 12/18/18 02:57 Plt Count 175 K/mm3 (140-440) 12/18/18 02:57 Lymph % (Auto) 13.3 % (13.4-35.0) L 12/10/18 11:02 [place] % (Auto) 6.1 % (0.0-7.3) 12/10/18 11:02 Eos % (Auto) 0.2 % (0.0-4.3) 12/10/18 11:02 Baso % (Auto) 0.7 % (0.0-1.8) 12/10/18 11:02 Lymph # 1.3 K/mm3 (1.2-5.4) 12/10/18 11:02 [place] # 0.6 K/mm3 (0.0-0.8) 12/10/18 11:02 Eos # 0.0 K/mm3 (0.0-0.4) 12/10/18 11:02 Baso # 0.1 K/mm3 (0.0-0.1) 12/10/18 11:02 Add Manual Diff Complete 12/14/18 19:41 Total Counted 100 12/14/18 19:41 Seg Neutrophils % Emergency Department Clinician 12/14/18 19:41 Seg Neuts % (Manual) 89.0 % (40.0-70.0) H 12/14/18 19:41 Band Neutrophils % 0 % 12/14/18 19:41 Lymphocytes % (Manual) 5.0 % (13.4-35.0) L 12/14/18 19:41 Reactive Lymphs % (Man) 0 % 12/14/18 19:41 Monocytes % (Manual) 6.0 % (0.0-7.3) 12/14/18 19:41 Eosinophils % (Manual) 0 % (0.0-4.3) 12/14/18 19:41 Basophils % (Manual) 0 % (0.0-1.8) 12/14/18 19:41 Metamyelocytes % 0 % 12/14/18 19:41 Myelocytes % 0 % 12/14/18 19:41 Promyelocytes % 0 % 12/14/18 19:41 Blast Cells % 0 % 12/14/18 19:41 Nucleated RBC % Not Reportable 12/14/18 19:41 Seg Neutrophils # 8.0 K/mm3 (1.8-7.7) H 12/10/18 11:02 Seg Neutrophils # Man 10.5 K/mm3 (1.8-7.7) H 12/14/18 19:41 Band Neutrophils # 0.0 K/mm3 12/14/18 19:41 Lymphocytes # (Manual) 0.6 K/mm3 (1.2-5.4) L 12/14/18 19:41 Abs React Lymphs (Man) 0.0 K/mm3 12/14/18 19:41 Monocytes # (Manual) 0.7 K/mm3 (0.0-0.8) 12/14/18 19:41 Eosinophils # (Manual) 0.0 K/mm3 (0.0-0.4) 12/14/18 19:41 Basophils # (Manual) 0.0 K/mm3 (0.0-0.1) 12/14/18 19:41 Metamyelocytes # 0.0 K/mm3 12/14/18 19:41 Myelocytes # 0.0 K/mm3 12/14/18 19:41 Promyelocytes # 0.0 K/mm3 12/14/18 19:41 Blast Cells # 0.0 K/mm3 12/14/18 19:41 WBC Morphology Not Reportable 12/14/18 19:41 Hypersegmented Neuts Not Reportable 12/14/18 19:41 Hyposegmented Neuts Not Reportable 12/14/18 19:41 Hypogranular Neuts Not Reportable 12/14/18 19:41 Smudge Cells Not Reportable 12/14/18 19:41 Toxic Granulation Not Reportable 12/14/18 19:41 Toxic Vacuolation Not Reportable 12/14/18 19:41 Dohle Bodies Not Reportable 12/14/18 19:41 Pelger-Huet Anomaly Not Reportable 12/14/18 19:41 Valentín Rods Not Reportable 12/14/18 19:41 Platelet Estimate Consistent w auto 12/14/18 19:41 Clumped Platelets Not Reportable 12/14/18 19:41 Plt Clumps, EDTA Not Reportable 12/14/18 19:41 Large Platelets Not Reportable 12/14/18 19:41 Giant Platelets Not Reportable 12/14/18 19:41 Platelet Satelliting Not Reportable 12/14/18 19:41 Plt Morphology Comment Not Reportable 12/14/18 19:41 RBC Morphology Not Reportable 12/14/18 19:41 Dimorphic RBCs Not Reportable 12/14/18 19:41 Polychromasia Not Reportable 12/14/18 19:41 Hypochromasia Not Reportable 12/14/18 19:41 Poikilocytosis Few 12/14/18 19:41 Anisocytosis 1+ 12/14/18 19:41 Microcytosis Not Reportable 12/14/18 19:41 Macrocytosis Not Reportable 12/14/18 19:41 Spherocytes Not Reportable 12/14/18 19:41 Pappenheimer Bodies Not Reportable 12/14/18 19:41 Sickle Cells Not Reportable 12/14/18 19:41 Target Cells Not Reportable 12/14/18 19:41 Tear Drop Cells Not Reportable 12/14/18 19:41 Ovalocytes Not Reportable 12/14/18 19:41 Helmet Cells Not Reportable 12/14/18 19:41 [place] Bodies Not Reportable 12/14/18 19:41 [place] Rings Not Reportable 12/14/18 19:41 Himanshu Cells Not Reportable 12/14/18 19:41 Bite Cells Not Reportable 12/14/18 19:41 Crenated Cell Not Reportable 12/14/18 19:41 Elliptocytes Not Reportable 12/14/18 19:41 Acanthocytes (Spur) Not Reportable 12/14/18 19:41 Rouleaux Not Reportable 12/14/18 19:41 Hemoglobin C Crystals Not Reportable 12/14/18 19:41 Schistocytes Not Reportable 12/14/18 19:41 Malaria parasites Not Reportable 12/14/18 19:41 Hever Bodies Not Reportable 12/14/18 19:41 Hem Pathologist Commnt No 12/14/18 19:41 PT 13.5 Sec. (12.2-14.9) 12/10/18 11:02 INR 0.97 (0.87-1.13) 12/10/18 11:02 APTT 28.6 Sec. (24.2-36.6) 12/10/18 11:02 Heparin Anti-Xa Level 0.32 U.I./ml (0.3-0.7) 12/18/18 02:57 Sodium 139 mmol/L (137-145) 12/18/18 02:57 Potassium 3.3 mmol/L (3.6-5.0) L D 12/18/18 02:57 Chloride 100.2 mmol/L (98-107) 12/18/18 02:57 Carbon Dioxide 29 mmol/L (22-30) D 12/18/18 02:57 Anion Gap 13 mmol/L 12/18/18 02:57 BUN 8 mg/dL (9-20) L 12/18/18 02:57 Creatinine 0.8 mg/dL (0.8-1.5) 12/18/18 02:57 Estimated GFR > 60 ml/min 12/18/18 02:57 BUN/Creatinine Ratio 10 % 12/18/18 02:57 Glucose 114 mg/dL (75-100) H 12/18/18 02:57 Calcium 8.5 mg/dL (8.4-10.2) 12/18/18 02:57 Troponin T < 0.010 ng/mL (0.00-0.029) 12/13/18 07:13 Albumin 0.6 g/dL (3.9-5) L 12/14/18 15:48 Blood Type A POSITIVE 12/13/18 13:21 Antibody Screen Negative 12/13/18 13:21 Crossmatch See Detail 12/13/18 13:21 Nutrition/Malnutrition Assess - Dietary Evaluation Nutrition/Malnutrition Findings: Nutrition Notes Start: 12/11/18 11:02 Freq: Status: Active Protocol: Document 12/17/18 16:18 RM (Rec: 12/17/18 16:25 RM [id number]) Nutrition Notes Need for Assessment generated from: LOS Initial or Follow up Brief Note Current Diagnosis Hypertension Hyperlipidemia Other Pertinent Diagnosis arterial occlusion Current Diet Regular Labs/Tests Reviewed Pertinent Medications Reviewed Height 5 ft 8 in Weight 70.1 kg Usual Body Weight 75 kg [place] Body Weight (kg) 70.00 BMI 23.5 Weight change and time frame 6.5% wt loss X 1 week Subjective/Other Information Screened for LOS. Clear liquid diet in place earlier. Regular diet ordered later today. Pt stated that his appetite is good, that he drank all of his meals, and that he is very hungry. Stated UBW was 165 lbs a couple weeks ago. Burn Absent Trauma Absent Nutrition Intervention Follow-Up By: 12/21/18 Additional Comments Follow for stable intakes
[2018-12-18] MEDS: MORPHINE IV PRN (22:17)
[2018-12-19] MEDS: LOPRESSOR IV SCH ×2 (05:34→13:00)
[2018-12-19 07:54] LABS: BUN/Creatinine Ratio 10; Blood Urea Nitrogen 7 mg/dL (9-20); Calcium 8.7 mg/dL (8.4-10.2); Hemolysis Index 10
[2018-12-19] MEDS: ASPIRIN PO SCH (10:11)
[2018-12-19] MEDS: ELIQUIS PO SCH (10:11)
[2018-12-19] MEDS: PROTONIX PO SCH (10:11)
[2018-12-19] MEDS: K-DUR PO SCH (10:11)
--- NOTE | 2018-12-19 10:38 | Progress Note ---
Assessment and Plan s/p aortobifemoral bypass POD 5 Plan: continue anticoagulation with Eliquis, samples given OK to discharge from vascular standpoint on Eliquis 5mg BID and pain meds f/u in the office in 2 weeks Subjective Date of service: 12/19/18 Principal diagnosis: PVD, infrarenal aortic occlusion Interval history: Patient doing well. Tolerating regular diet, OOB Objective - Exam Narrative Exam: Midline incision and groin incisions intact. LE well perfused - Constitutional Vitals: Vital Signs - 12hr 12/18/18 12/18/18 12/18/18 22:47 23:36 23:46 Temperature 98.6 F Pulse Rate 90 90 Respiratory 18 20 Rate Blood Pressure 119/76 119/76 O2 Sat by Pulse 99 Oximetry 12/19/18 12/19/18 04:40 05:34 Temperature 98.4 F Pulse Rate 75 75 Respiratory 20 Rate Blood Pressure 137/87 137/87 O2 Sat by Pulse 99 Oximetry - Labs CBC & Chem 7: 12/18/18 02:57 12/19/18 06:48 Labs: Abnormal lab results 12/19/18 Range/Units 06:48 Sodium 136 L (137-145) mmol/L Potassium 3.3 L (3.6-5.0) mmol/L Chloride 96.4 L (98-107) mmol/L BUN 7 L (9-20) mg/dL Creatinine 0.7 L (0.8-1.5) mg/dL Glucose 119 H (75-100) mg/dL Medications & Allergies - Medications Allergies/Adverse Reactions: Allergies No Known Allergies Allergy (Verified 12/10/18 07:59) Home Medications: Home Medications Medication Instructions Recorded Confirmed Last Taken Type AtorvaSTATin [Lipitor] 40 mg PO QHS 12/10/18 12/10/18 12/09/18 History Losartan/Hydrochlorothiazide 1 each PO QDAY 12/10/18 12/10/18 12/09/18 History [Hyzaar 100-12.5 TAB] Active Medications: Generic Name Dose Route Start Last Admin Trade Name Freq PRN Reason Stop Dose Admin Acetaminophen 650 mg 12/10/18 14:16 Tylenol PO Q4H PRN Pain MILD(1-3)/Fever >100.5/LUGO Apixaban 5 mg 12/18/18 12:00 12/19/18 10:11 Eliquis PO 5 mg Q12HR ALESHA Administration Protocol Aspirin 325 mg 12/12/18 14:00 12/19/18 10:11 Aspirin PO 325 mg QDAY ALESHA Administration Atorvastatin Calcium 40 mg 12/13/18 22:00 12/18/18 22:08 Lipitor PO 40 mg QHS ALESHA Administration Benzocaine/Menthol 1 each 12/15/18 18:53 12/15/18 21:25 Cepacol X Strength MM 1 each Q2HR PRN Administration Sore Throat Bisacodyl 10 mg 12/16/18 10:00 12/17/18 05:47 Dulcolax [place] 10 mg QDAY PRN Administration Bowel Movement Potassium Chloride 10 meq in 100 mls @ 100 mls/hr 12/19/18 11:00 Kcl 10meq/100ml IV 12/19/18 12:59 Q1H ALESHA Losartan Potassium 50 mg 12/18/18 10:36 12/19/18 10:11 Cozaar PO 50 mg QDAY ALESHA Administration Metoprolol Tartrate 5 mg 12/14/18 18:00 12/19/18 05:34 Lopressor IV 5 mg Q6HR ALESHA Administration Morphine Sulfate 2 mg 12/14/18 17:29 12/18/18 22:17 Morphine IV 2 mg Q4H PRN Administration Pain, Moderate (4-6) Morphine Sulfate 4 mg 12/14/18 17:29 12/16/18 09:59 Morphine IV 4 mg Q4H PRN Administration Pain , Severe (7-10) Naloxone HCl 0.1 mg 12/14/18 17:29 Narcan 0.4 Mg/1 Ml IV Q2MIN PRN Res Rate </= 8 or 02 SAT < 92% Ondansetron HCl 4 mg 12/10/18 14:16 Zofran IV Q8H PRN Nausea And Vomiting Oxycodone/Acetaminophen 1 tab 12/10/18 14:16 12/18/18 10:02 Percocet 5/325 PO 1 tab Q6H PRN Administration Pain, Moderate (4-6) Pantoprazole Sodium 40 mg 12/18/18 10:00 12/19/18 10:11 Protonix PO 40 mg DAILY ALESHA Administration Potassium Chloride 40 meq 12/18/18 11:00 12/19/18 10:11 K-Dur PO 12/20/18 10:59 40 meq QDAY ALESHA Administration
[2018-12-19] MEDS: KCL 10MEQ/100ML 10 MEQ/100 ML BAG IV SCH ×2 (13:00→14:00)
[2018-12-19 13:03] VITALS: BP 146/92
--- NOTE | 2018-12-19 15:11 | Discharge Summary ---
Providers - Providers Date of Admission: 12/10/18 14:16 Date of discharge: 12/19/18 Attending physician: JOVI WHITFIELD 12/12/18 16:26 Consult to Case Management [CONS] Routine Services Needed at Discharge: Barrel Endshake Adjuster Notified:: MARE Additional Physician Instructions: See on Thursday12/13/18 regarding Financial concerns. Primary care physician: LACY HEWITT Hospitalization Reason for admission: Occlusion/thrombosis of the infrarenal aorta, Acute right leg rest ischemia Condition: Stable Pertinent studies: CTA Chest and abdomen Arterial doppler US Echo: EF of 55-60% Stress test: Negative Procedures: Aortobifemoral bypass surgery Hospital course: Final discharge diagnoses: Occlusion/thrombosis of the infrarenal aorta Acute right leg rest ischemia Hyponatremia, present on admission Hypertensive emergency with SBP of 190, improved Hypokalemia, repleted Mixed Hyperlipidemia Thrombocytopenia, improved Chronic tobacco abuse, counseled Hospital course: Patient was admitted and placed on heparin drip. He later underwent preoperative cardiology evaluation with stress test which was reported as negative. Subsequently, he underwent surgical intervention for the right leg ischemia. For the hyponatremia, he received IV fluid with improvement. Postprocedure, patient was transitioned to oral anticoagulation with Eiquis while the heparin drip was discontinued. At some point, the patient's blood pressure accelerated for which he required Cardene drip. He also later developed hypokalemia for which he received both IV and oral supplements. Thereafter, the patient improved clinically and he was then deemed stable for discharge with clinic follow up after clearance by the surgery team. Disposition: TO HOME OR SELFCARE Time spent for discharge: 35 minutes Core Measure Documentation - Palliative Care Palliative Care/ Comfort Measures: Not Applicable - Core Measures Any of the following diagnoses?: none Exam - Constitutional Vitals: Temp Pulse Resp BP Pulse Ox 98.4 F 77 20 146/92 98 12/19/18 04:40 12/19/18 11:41 12/19/18 04:40 12/19/18 11:41 12/19/18 11:41 General appearance: Present: no acute distress, well-nourished - EENT Eyes: Present: PERRL, EOM intact ENT: hearing intact, clear oral mucosa - Neck Neck: Present: supple, normal ROM - Respiratory Respiratory effort: normal Respiratory: bilateral: CTA - Cardiovascular Rhythm: regular Heart Sounds: Present: S1 & S2. Absent: rub, click - Extremities Extremities: No edema - Abdominal General gastrointestinal: Present: soft, non-tender, non-distended, normal bowel sounds, other (incision site intact and clean) - Integumentary Integumentary: Present: clear, warm, dry - Musculoskeletal Musculoskeletal: gait normal, strength equal bilaterally - Psychiatric Psychiatric: appropriate mood/affect, intact judgment & insight - Neurologic Neurologic: CNII-XII intact, moves all extremities Plan Follow up with: LACY HEWITT MD [Primary Care Provider] - 7 Days Forms: Discharge Signature Page Prescriptions: Aspirin [Adult Aspirin] 81 mg PO DAILY #30 tablet. oxyCODONE /ACETAMINOPHEN [Percocet 5/325 mg] 1 tab PO Q6H PRN #15 tablet PRN Reason: Pain, Moderate (4-6) Potassium Chloride [K-Dur] 20 meq PO QDAY 3 Days #3 tablet
== END 2018-12-19 15:23 | disposition home or self-care (01) | DRG 269 ==
LOC: ED 07:59 → 3A 14:16 → CC1 12-14 18:16 → 4A 12-16 19:01 → CC1 12-16 19:47 → 4A 12-16 21:01
PROVIDERS: ADMIT Internal Medicine; ATTEND Internal Medicine
PROC: 04100JK Bypass Abdominal Aorta to Bilateral Femoral Arteries with Synthetic Substitute, Open Approach (ICD-10-PCS; principal; 2018-12-14)
PROC: 04C00ZZ Extirpation of Matter from Abdominal Aorta, Open Approach (ICD-10-PCS; 2018-12-14)
PROC: 04CC0ZZ Extirpation of Matter from Right Common Iliac Artery, Open Approach (ICD-10-PCS; 2018-12-14)
PROC: 04CL0ZZ Extirpation of Matter from Left Femoral Artery, Open Approach (ICD-10-PCS; 2018-12-14)
PROC: 04CK0ZZ Extirpation of Matter from Right Femoral Artery, Open Approach (ICD-10-PCS; 2018-12-14)
DX: I74.09 Other arterial embolism and thrombosis of abdominal aorta (principal); E87.1 Hypo-osmolality and hyponatremia; F17.213 Nicotine dependence, cigarettes, with withdrawal; I16.1 Hypertensive emergency; I70.213 Atherosclerosis of native arteries of extremities with intermittent claudication, bilateral legs; E78.2 Mixed hyperlipidemia; I99.8 Other disorder of circulatory system; D69.6 Thrombocytopenia, unspecified; E87.6 Hypokalemia; I10 Essential (primary) hypertension; Z71.6 Tobacco abuse counseling
CPT/HCPCS: 36415; 36620; 71045; 71275; 74174; 75635; 78452; 80048; 80053; 80202; 81001; 82040; 82140; 82550; 82805; 83735; 84484; 85007; 85014; 85018; 85025; 85027; 85049; 85520; 85610; 85730; 86850; 86900; 86901; 86920; 87040; 87075; 87076; 87086; 87116; 87186; 88304; 88311; 93005; 93010; 93017; 93306; 93925; 94760; 99406; G0378; A4649; A9270-GY; A9502; C1757; C1768; C9113; C9250; J0330; J0690; J0696; J0878; J1100; J1170; J1644; J1885; J2001; J2250; J2270; J2370; J2405; J2543; J2704; J2710; J2720; J2785; J3010; J3370; J3480; J3490; J7030; J7040; J7050; J7120; Q9967

== ENCOUNTER 2018-12-26 20:14 | Inpatient (IN) | payer OTHER ==
[2018-12-26] MEDS ORDERED: TYLENOL PO STA (20:28)
[2018-12-26 20:49] LABS: Hematocrit 37.1 % (35.5-45.6); Hemoglobin 12.4 gm/dl (11.8-15.2); Mean Corpuscular HGB Conc 34 % (32-34); Mean Corpuscular Volume 89 fl (84-94); Platelet Count 535 K/mm3 (140-440); Red Blood Count 4.19 M/mm3 (3.65-5.03); Red Cell Distribution Width 14.9 % (13.2-15.2)
[2018-12-26 20:54] LABS: INR 1.13 (0.87-1.13)
[2018-12-26 20:59] LABS: BUN/Creatinine Ratio 13; Blood Urea Nitrogen 13 mg/dL (9-20)
[2018-12-26 21:00] LABS: Alanine Aminotransferase 34 units/L (7-56); Albumin 3.9 g/dL (3.9-5); Hemolysis Index 6
--- NOTE | 2018-12-26 21:00 | XRay Report ---
PROCEDURE: XR CHEST 1V AP TECHNIQUE: Single AP chest HISTORY: possible Sepsis COMPARISONS: FINDINGS: Cardiac and mediastinal contours are unremarkable. No focal pulmonary infiltrate identified. No pleur al fluid collection seen. Pulmonary vasculature is unremarkable. IMPRESSION: No acute cardiopulmonary findings. This document is electronically signed by Jose Cee MD., December 26 2018 08:57:51 PM ET
[2018-12-26] MEDS ORDERED: ZOSYN/NS 4.5GM/100ML 4.5 GM/100 ML VIAL IV ONE (21:14)
[2018-12-26] MEDS ORDERED: VANCOMYCIN 1,250 MG in NACL 0.9% 500 ML 500 ML IV ONE (21:14)
[2018-12-26] MEDS ORDERED: NACL 0.9% 1000 ML IV ONE (21:14)
[2018-12-26 21:45] LABS: Basophils % (Manual) 0 % (0.0-1.8); Total Cells Counted 100
[2018-12-26 21:46] LABS: Giant Platelets Few; Ovalocytes 1+; Platelet Estimate Appears Increased; Stomatocytes 1+
[2018-12-26 21:47] LABS: Bilirubin,Urine NEG (Negative); Blood,Urine NEG (Negative); Color,Urine Amber (Yellow); Mucus,Urine 1+ /HPF; Protein,Urine <15 mg/dL mg/dL (Negative)
--- NOTE | 2018-12-26 21:47 | Emergency Department Report ---
HPI - General Chief Complaint: Skin/Abscess/Foreign Body Time Seen by Provider: 12/26/18 21:16 - HPI HPI: 48-year-old -[place] male presents to ED with fever, postop wound drainage, postop wound pain. On December 15 patient had a aortofemoral bypass, for claudication, occlusion/thrombosis of the infrarenal aorta. Patient had presented the day prior on December 14 with bilateral lower shoe many pain, worse on the right, numbness and paresthesia in both lower extremities. The patient postop course was complicated by hypertension, which eventually resolved and he was discharged home on December 19 in stable condition. The patient has been doing well until today started noticing a fever this morning, 101, left-sided groin pain, left-sided groin swelling, mild drainage at the distal third of the one on the left groin. He has been compliant with prescribed medication at discharge including eliquis. ED Past Medical Hx - Past Medical History Previous Medical History?: Yes Hx Hypertension: Yes Hx Heart Attack/AMI: No Hx Congestive Heart Failure: No Hx Diabetes: No Hx Liver Disease: No Hx Renal Disease: No Hx Seizures: No Hx Asthma: No Hx COPD: No Additional medical history: PAD, HPLD. high cholestrol - Surgical History Past Surgical History?: Yes Additional Surgical History: Arotic bifemerol bypass 12/14/18 - Social History Smoking Status: Former Smoker Substance Use Type: None - Medications Home Medications: Home Medications Medication Instructions Recorded Confirmed Last Taken Type AtorvaSTATin [Lipitor] 40 mg PO QHS 12/10/18 12/10/18 12/09/18 History Losartan/Hydrochlorothiazide 1 each PO QDAY 12/10/18 12/10/18 12/09/18 History [Hyzaar 100-12.5 TAB] Apixaban [Eliquis] 5 mg PO Q12HR tablet 12/19/18 Unknown Rx Aspirin [Adult Aspirin] 81 mg PO DAILY #30 tablet. 12/19/18 Unknown Rx Potassium Chloride [K-Dur] 20 meq PO QDAY 3 Days #3 tablet 12/19/18 Unknown Rx oxyCODONE /ACETAMINOPHEN [Percocet 1 tab PO Q6H PRN #15 tablet 12/19/18 Unknown Rx 5/325 mg] ED Review of Systems ROS: Stated complaint: GLUE SUCTURES LEAKING PUS & BLOOD Other details as noted in HPI Comment: All other systems reviewed and negative Constitutional: chills, fever Eyes: denies: eye pain, eye discharge, vision change ENT: denies: ear pain, throat pain Respiratory: denies: cough, shortness of breath, wheezing Cardiovascular: denies: chest pain, palpitations Endocrine: no symptoms reported Gastrointestinal: denies: abdominal pain, nausea, diarrhea Genitourinary: denies: urgency, dysuria Musculoskeletal: denies: back pain, joint swelling, arthralgia Skin: other (left postop groin wound with drainage). denies: rash, lesions Neurological: denies: headache, weakness, paresthesias Psychiatric: denies: anxiety, depression Hematological/Lymphatic: denies: easy bleeding, easy bruising Physical Exam - Physical Exam Vital Signs: Vital Signs 12/26/18 12/26/18 20:20 21:19 Temperature 101.1 F H 100 F H Pulse Rate 131 H 104 H Respiratory 18 16 Rate Blood Pressure 110/75 Blood Pressure 115/73 [Left] O2 Sat by Pulse 98 99 Oximetry Physical Exam: - General Limitations: No Limitations General appearance: alert, in mild distress, febrile - Head Head exam: Present: atraumatic, normocephalic - Eye Eye exam: Present: normal appearance - ENT ENT exam: Present: mucous membranes moist - Neck Neck exam: Present: normal inspection - Respiratory Respiratory exam: Present: normal lung sounds bilaterally. Absent: respiratory distress - Cardiovascular Cardiovascular Exam: Present: regular rate, normal rhythm. Absent: systolic murmur, diastolic murmur, rubs, gallop - GI/Abdominal GI/Abdominal exam: Present: soft, normal bowel sounds, abdominal wound is dry and clean - Extremities Exam Extremities exam: Present: Distal third of the left groin area of postop wound with minimal drainage, rest of postop wound appears dry clean and intact - Back Exam Back exam: Present: normal inspection - Neurological Exam Neurological exam: Present: alert, oriented X3 - Psychiatric Psychiatric exam: Present: normal affect, normal mood - Skin Skin exam: Present: warm, dry, intact, normal color. Absent: rash ED Course Vital Signs 12/26/18 12/26/18 20:20 21:19 Temperature 101.1 F H 100 F H Pulse Rate 131 H 104 H Respiratory 18 16 Rate Blood Pressure 110/75 Blood Pressure 115/73 [Left] O2 Sat by Pulse 98 99 Oximetry - Reevaluation(s) Reevaluation #1: 12/26/18 21:58 Feeling better. Fluids infusing, Advised that he will be admitted. ED Medical Decision Making - Lab Data Result diagrams: 12/26/18 20:36 12/26/18 20:36 - EKG Data Interpretation: nonspecific ST-T wave dora, other 12/26/18 21:59 EKG was done at 2034, on 310, showed sinus tachycardia, probable left atrial enl argement. - Radiology Data Radiology results: report reviewed - Medical Decision Making 48-year-old -[place] male who was recently admitted with aorto femoral bypass presents to the ED with 1 infection, sepsis. Sepsis protocol was implemented, patient will be admitted to the hospitalist service, vascular surgery was consulted. Critical care attestation.: If time is entered above; I have spent that time in minutes in the direct care of this critically ill patient, excluding procedure time. ED Disposition Clinical Impression: Sepsis Qualifiers: Sepsis type: sepsis due to unspecified organism Qualified Code(s): A41.9 - Sepsis, unspecified organism Postoperative infection Qualifiers: Encounter type: initial encounter Postoperative infection type: sepsis Qualified Code(s): T81.44XA - Sepsis following a procedure, initial encounter Disposition: - TO HOME OR SELFCARE Is pt being admited?: Yes Does the pt Need Aspirin: No Condition: Stable Referrals: PRIMARY CARE,MD [Primary Care Provider] - 3-5 Days
[2018-12-26] MEDS ORDERED: VANCOMYCIN 1,250 MG in NACL 0.9% 250ML 250 ML IV ONE (22:00)
--- NOTE | 2018-12-26 22:17 | History and Physical Report ---
<CRISTÓBAL REYES - Last Filed: 12/27/18 03:12> History of Present Illness Date of examination: 12/26/18 Date of admission: 12/26/18 Chief complaint: right groin pain History of present illness: Pt is a 48 year old Male with PMHx of recent DVT s/o thrombectomy, PAD, HLD, HTN presents to the ER with c/o left groin lesion. Pt also reports elevate temp of 101, purulent discharged from the left groin. Pt states that he was diagnosed with a blood clot on the left groin last week and he had a procedure done to remove the clot, pt states that for the past few days the left groin has been painful, he is unable to walk on the leg or bear any weight on the area due to pain, he also reports redness and some numbness. Pt also c/o fever, chills today which prompt him to come to the ER for evaluation. In the ER his temp was 100.0, his WBC was 13.3, plt 535, he was started on antibiotic and admitted to the ER for further evaluation. Past History Past Medical History: hypertension, hyperlipidemia, other (PAD) Past Surgical History: Other (thhombectomy) Medications and Allergies Allergies Allergy/AdvReac Type Severity Reaction Status Date / Time No Known Allergies Allergy Verified 12/10/18 07:59 Home Medications Medication Instructions Recorded Confirmed Last Taken Type AtorvaSTATin [Lipitor] 40 mg PO QHS 12/10/18 12/26/18 12/09/18 History Losartan/Hydrochlorothiazide 1 each PO QDAY 12/10/18 12/26/18 12/09/18 History [Hyzaar 100-12.5 TAB] Potassium Chloride [K-Dur] 20 meq PO QDAY 3 Days #3 tablet 12/19/18 12/26/18 Unknown Rx oxyCODONE /ACETAMINOPHEN [Percocet 1 tab PO Q6H PRN #15 tablet 12/19/18 12/26/18 Unknown Rx 5/325 mg] Apixaban [Eliquis] 5 mg PO Q12H 12/26/18 12/26/18 Unknown History Aspirin 325 mg PO QDAY 12/26/18 12/26/18 Unknown History Active Meds: Active Medications Enoxaparin Sodium (Lovenox) 40 mg SUB-Q QDAY ALESHA Vancomycin HCl 1,250 mg/ (Sodium Chloride) 275 mls @ 166.667 mls/hr IV ONCE ONE Stop: 12/26/18 23:38 Review of Systems Constitutional: fever, chills Integumentary: redness, wounds Neurological: headaches Exam - Constitutional Vitals: Temp Pulse Resp BP Pulse Ox 100 F H 104 H 16 105/72 99 12/26/18 21:19 12/26/18 21:19 12/26/18 21:19 12/26/18 22:00 12/26/18 21:19 General appearance: Present: no acute distress - EENT Eyes: Present: PERRL, EOM intact ENT: hearing intact - Neck Neck: Present: supple, normal ROM - Respiratory Respiratory effort: normal Respiratory: bilateral: CTA - Cardiovascular Rhythm: regular Peripheral Pulses: within normal limits - Abdominal General gastrointestinal: Present: soft, non-tender Male genitourinary: Present: deferred - Rectal Rectal Exam: deferred - Integumentary Integumentary: Present: warm, dry - Musculoskeletal Musculoskeletal: strength equal bilaterally - Psychiatric Psychiatric: appropriate mood/affect - Neurologic Neurologic: moves all extremities Results - Labs CBC & Chem 7: 12/26/18 20:36 12/26/18 20:36 Labs: Laboratory Last Values WBC 13.3 K/mm3 (4.5-11.0) H 12/26/18 20:36 RBC 4.19 M/mm3 (3.65-5.03) 12/26/18 20:36 Hgb 12.4 gm/dl (11.8-15.2) 12/26/18 20:36 Hct 37.1 % (35.5-45.6) 12/26/18 20:36 MCV 89 fl (84-94) 12/26/18 20:36 MCH 30 pg (28-32) 12/26/18 20:36 MCHC 34 % (32-34) 12/26/18 20:36 RDW 14.9 % (13.2-15.2) 12/26/18 20:36 Plt Count 535 K/mm3 (140-440) H 12/26/18 20:36 Add Manual Diff Complete 12/26/18 20:36 Total Counted 100 12/26/18 20:36 Seg Neuts % (Manual) 84.0 % (40.0-70.0) H 12/26/18 20:36 Band Neutrophils % 0 % 12/26/18 20:36 Lymphocytes % (Manual) 8.0 % (13.4-35.0) L 12/26/18 20:36 Reactive Lymphs % (Man) 0 % 12/26/18 20:36 Monocytes % (Manual) 7.0 % (0.0-7.3) 12/26/18 20:36 Eosinophils % (Manual) 1.0 % (0.0-4.3) 12/26/18 20:36 Basophils % (Manual) 0 % (0.0-1.8) 12/26/18 20:36 Metamyelocytes % 0 % 12/26/18 20:36 Myelocytes % 0 % 12/26/18 20:36 Promyelocytes % 0 % 12/26/18 20:36 Blast Cells % 0 % 12/26/18 20:36 Nucleated RBC % Not Reportable 12/26/18 20:36 Seg Neutrophils # Man 11.2 K/mm3 (1.8-7.7) H 12/26/18 20:36 Band Neutrophils # 0.0 K/mm3 12/26/18 20:36 Lymphocytes # (Manual) 1.1 K/mm3 (1.2-5.4) L 12/26/18 20:36 Abs React Lymphs (Man) 0.0 K/mm3 12/26/18 20:36 Monocytes # (Manual) 0.9 K/mm3 (0.0-0.8) H 12/26/18 20:36 Eosinophils # (Manual) 0.1 K/mm3 (0.0-0.4) 12/26/18 20:36 Basophils # (Manual) 0.0 K/mm3 (0.0-0.1) 12/26/18 20:36 Metamyelocytes # 0.0 K/mm3 12/26/18 20:36 Myelocytes # 0.0 K/mm3 12/26/18 20:36 Promyelocytes # 0.0 K/mm3 12/26/18 20:36 Blast Cells # 0.0 K/mm3 12/26/18 20:36 WBC Morphology Not Reportable 12/26/18 20:36 Hypersegmented Neuts Not Reportable 12/26/18 20:36 Hyposegmented Neuts Not Reportable 12/26/18 20:36 Hypogranular Neuts Not Reportable 12/26/18 20:36 Smudge Cells Not Reportable 12/26/18 20:36 Toxic Granulation Not Reportable 12/26/18 20:36 Toxic Vacuolation Not Reportable 12/26/18 20:36 Dohle Bodies Not Reportable 12/26/18 20:36 Pelger-Huet Anomaly Not Reportable 12/26/18 20:36 Valentín Rods Not Reportable 12/26/18 20:36 Platelet Estimate Appears increased 12/26/18 20:36 Clumped Platelets Not Reportable 12/26/18 20:36 Plt Clumps, EDTA Not Reportable 12/26/18 20:36 Large Platelets Not Reportable 12/26/18 20:36 Giant Platelets Few 12/26/18 20:36 Platelet Satelliting Not Reportable 12/26/18 20:36 Plt Morphology Comment Not Reportable 12/26/18 20:36 RBC Morphology Not Reportable 12/26/18 20:36 Dimorphic RBCs Not Reportable 12/26/18 20:36 Polychromasia Not Reportable 12/26/18 20:36 Hypochromasia Not Reportable 12/26/18 20:36 Poikilocytosis Not Reportable 12/26/18 20:36 Anisocytosis Not Reportable 12/26/18 20:36 Microcytosis Not Reportable 12/26/18 20:36 Macrocytosis Not Reportable 12/26/18 20:36 Spherocytes Not Reportable 12/26/18 20:36 Pappenheimer Bodies Not Reportable 12/26/18 20:36 Sickle Cells Not Reportable 12/26/18 20:36 Target Cells Not Reportable 12/26/18 20:36 Tear Drop Cells Not Reportable 12/26/18 20:36 Ovalocytes 1+ 12/26/18 20:36 Stomatocytes 1+ 12/26/18 20:36 Helmet Cells Not Reportable 12/26/18 20:36 [place] Bodies Not Reportable 12/26/18 20:36 [place] Rings Not Reportable 12/26/18 20:36 Himanshu Cells Not Reportable 12/26/18 20:36 Bite Cells Not Reportable 12/26/18 20:36 Crenated Cell Not Reportable 12/26/18 20:36 Elliptocytes Not Reportable 12/26/18 20:36 Acanthocytes (Spur) Not Reportable 12/26/18 20:36 Rouleaux Not Reportable 12/26/18 20:36 Hemoglobin C Crystals Not Reportable 12/26/18 20:36 Schistocytes Not Reportable 12/26/18 20:36 Malaria parasites Not Reportable 12/26/18 20:36 Hever Bodies Not Reportable 12/26/18 20:36 Hem Pathologist Commnt No 12/26/18 20:36 PT 15.2 Sec. (12.2-14.9) H 12/26/18 20:36 INR 1.13 (0.87-1.13) 12/26/18 20:36 VBG pH 7.441 (7.320-7.420) H 12/26/18 20:36 Sodium 133 mmol/L (137-145) L 12/26/18 20:36 Potassium 4.5 mmol/L (3.6-5.0) 12/26/18 20:36 Chloride 92.5 mmol/L (98-107) L 12/26/18 20:36 Carbon Dioxide 25 mmol/L (22-30) 12/26/18 20:36 Anion Gap 20 mmol/L 12/26/18 20:36 BUN 13 mg/dL (9-20) 12/26/18 20:36 Creatinine 1.0 mg/dL (0.8-1.5) 12/26/18 20:36 Estimated GFR > 60 ml/min 12/26/18 20:36 BUN/Creatinine Ratio 13 % 12/26/18 20:36 Glucose 121 mg/dL (75-100) H 12/26/18 20:36 Lactic Acid 1.20 mmol/L (0.7-2.0) 12/26/18 20:36 Calcium 9.0 mg/dL (8.4-10.2) 12/26/18 20:36 Total Bilirubin 1.20 mg/dL (0.1-1.2) 12/26/18 20:36 AST 24 units/L (5-40) 12/26/18 20:36 ALT 34 units/L (7-56) 12/26/18 20:36 Alkaline Phosphatase 132 units/L (35-129) H 12/26/18 20:36 Total Protein 7.7 g/dL (6.3-8.2) 12/26/18 20:36 Albumin 3.9 g/dL (3.9-5) 12/26/18 20:36 Albumin/Globulin Ratio 1.0 % 12/26/18 20:36 Urine Color Francesca (Yellow) 12/26/18 21:08 Urine Turbidity Clear (Clear) 12/26/18 21:08 Urine pH 5.0 (5.0-7.0) 12/26/18 21:08 Ur Specific [place] 1.028 (1.003-1.030) 12/26/18 21:08 Urine Protein <15 mg/dl mg/dL (Negative) 12/26/18 21:08 Urine Glucose (UA) Neg mg/dL (Negative) 12/26/18 21:08 Urine Ketones Neg mg/dL (Negative) 12/26/18 21:08 Urine Blood Neg (Negative) 12/26/18 21:08 Urine Nitrite Neg (Negative) 12/26/18 21:08 Urine Bilirubin Neg (Negative) 12/26/18 21:08 Urine Urobilinogen 4.0 mg/dL (<2.0) 12/26/18 21:08 Ur Leukocyte Esterase Tr (Negative) 12/26/18 21:08 Urine WBC (Auto) 13.0 /HPF (0.0-6.0) H 12/26/18 21:08 Urine RBC (Auto) 4.0 /HPF (0.0-6.0) 12/26/18 21:08 U Epithel Cells (Auto) < 1.0 /HPF (0-13.0) 12/26/18 21:08 Urine Mucus 1+ /HPF 12/26/18 21:08 Assessment and Plan Assessment and plan: 1. Acute febrile illness 2. Recent leg ischemia due to leg thrombus s/p thrombectomy 12/10/18 3. Leukocytosis 4. Hypertension 5. Hyperlipidemia 6. Infected left groin wound/cellulitis Plan: Patient is admitted for seizures of infection Culture once Vancomycin daily from pharmacy to follow Pain control when necessary Resume home meds Consults vascular surgery for evaluation Advance Directives: Yes VTE prophylaxis?: Mechanical Plan of care discussed with patient/family: Yes <MEAGHAN BOLDEN - Last Filed: 12/27/18 03:15> History of Present Illness Date of admission: 12/26/18 22:07 Medications and Allergies Active Meds: Active Medications Acetaminophen (Tylenol) 650 mg PO Q4H PRN PRN Reason: Pain MILD(1-3)/Fever >100.5/LUGO Apixaban (Eliquis) 5 mg PO Q12H ALESHA; Protocol Aspirin (Aspirin) 325 mg PO QDAY ALESHA Atorvastatin Calcium (Lipitor) 40 mg PO QHS [facility] Vancomycin HCl (Vancomycin/Ns 1 Gm/250 Ml) 1 gm in 250 mls @ 250 mls/hr IV Q12H ALESHA Piperacillin Sod/Tazobactam Sod (Zosyn/Ns 4.5gm/100ml) 4.5 gm in 100 mls @ 200 mls/hr IV Q8HR ALESHA; Protocol Miscellaneous Medication (Losartan/Hydrochlorothiazide [Hyzaar 100-12.5 Tab]) 1 each PO QDAY ALESHA Morphine Sulfate (Morphine) 2 mg IV Q4H PRN PRN Reason: Pain, Moderate (4-6) Ondansetron HCl (Zofran) 4 mg IV Q8H PRN PRN Reason: Nausea And Vomiting Sodium Chloride (Sodium Chloride Flush Syringe 10 Ml) 10 ml IV BID ALESHA Sodium Chloride (Sodium Chloride Flush Syringe 10 Ml) 10 ml IV PRN PRN PRN Reason: LINE FLUSH Exam - Constitutional Vitals: Temp Pulse Resp BP Pulse Ox 98.9 F 90 18 100/66 98 12/27/18 00:08 12/27/18 00:08 12/27/18 00:08 12/27/18 00:08 12/27/18 00:08 Results - Labs CBC & Chem 7: 12/26/18 20:36 12/26/18 20:36 Labs: Laboratory Last Values WBC 13.3 K/mm3 (4.5-11.0) H 12/26/18 20:36 RBC 4.19 M/mm3 (3.65-5.03) 12/26/18 20:36 Hgb 12.4 gm/dl (11.8-15.2) 12/26/18 20:36 Hct 37.1 % (35.5-45.6) 12/26/18 20:36 MCV 89 fl (84-94) 12/26/18 20:36 MCH 30 pg (28-32) 12/26/18 20:36 MCHC 34 % (32-34) 12/26/18 20:36 RDW 14.9 % (13.2-15.2) 12/26/18 20:36 Plt Count 535 K/mm3 (140-440) H 12/26/18 20:36 Add Manual Diff Complete 12/26/18 20:36 Total Counted 100 12/26/18 20:36 Seg Neuts % (Manual) 84.0 % (40.0-70.0) H 12/26/18 20:36 Band Neutrophils % 0 % 12/26/18 20:36 Lymphocytes % (Manual) 8.0 % (13.4-35.0) L 12/26/18 20:36 Reactive Lymphs % (Man) 0 % 12/26/18 20:36 Monocytes % (Manual) 7.0 % (0.0-7.3) 12/26/18 20:36 Eosinophils % (Manual) 1.0 % (0.0-4.3) 12/26/18 20:36 Basophils % (Manual) 0 % (0.0-1.8) 12/26/18 20:36 Metamyelocytes % 0 % 12/26/18 20:36 Myelocytes % 0 % 12/26/18 20:36 Promyelocytes % 0 % 12/26/18 20:36 Blast Cells % 0 % 12/26/18 20:36 Nucleated RBC % Not Reportable 12/26/18 20:36 Seg Neutrophils # Man 11.2 K/mm3 (1.8-7.7) H 12/26/18 20:36 Band Neutrophils # 0.0 K/mm3 12/26/18 20:36 Lymphocytes # (Manual) 1.1 K/mm3 (1.2-5.4) L 12/26/18 20:36 Abs React Lymphs (Man) 0.0 K/mm3 12/26/18 20:36 Monocytes # (Manual) 0.9 K/mm3 (0.0-0.8) H 12/26/18 20:36 Eosinophils # (Manual) 0.1 K/mm3 (0.0-0.4) 12/26/18 20:36 Basophils # (Manual) 0.0 K/mm3 (0.0-0.1) 12/26/18 20:36 Metamyelocytes # 0.0 K/mm3 12/26/18 20:36 Myelocytes # 0.0 K/mm3 12/26/18 20:36 Promyelocytes # 0.0 K/mm3 12/26/18 20:36 Blast Cells # 0.0 K/mm3 12/26/18 20:36 WBC Morphology Not Reportable 12/26/18 20:36 Hypersegmented Neuts Not Reportable 12/26/18 20:36 Hyposegmented Neuts Not Reportable 12/26/18 20:36 Hypogranular Neuts Not Reportable 12/26/18 20:36 Smudge Cells Not Reportable 12/26/18 20:36 Toxic Granulation Not Reportable 12/26/18 20:36 Toxic Vacuolation Not Reportable 12/26/18 20:36 Dohle Bodies Not Reportable 12/26/18 20:36 Pelger-Huet Anomaly Not Reportable 12/26/18 20:36 Valentín Rods Not Reportable 12/26/18 20:36 Platelet Estimate Appears increased 12/26/18 20:36 Clumped Platelets Not Reportable 12/26/18 20:36 Plt Clumps, EDTA Not Reportable 12/26/18 20:36 Large Platelets Not Reportable 12/26/18 20:36 Giant Platelets Few 12/26/18 20:36 Platelet Satelliting Not Reportable 12/26/18 20:36 Plt Morphology Comment Not Reportable 12/26/18 20:36 RBC Morphology Not Reportable 12/26/18 20:36 Dimorphic RBCs Not Reportable 12/26/18 20:36 Polychromasia Not Reportable 12/26/18 20:36 Hypochromasia Not Reportable 12/26/18 20:36 Poikilocytosis Not Reportable 12/26/18 20:36 Anisocytosis Not Reportable 12/26/18 20:36 Microcytosis Not Reportable 12/26/18 20:36 Macrocytosis Not Reportable 12/26/18 20:36 Spherocytes Not Reportable 12/26/18 20:36 Pappenheimer Bodies Not Reportable 12/26/18 20:36 Sickle Cells Not Reportable 12/26/18 20:36 Target Cells Not Reportable 12/26/18 20:36 Tear Drop Cells Not Reportable 12/26/18 20:36 Ovalocytes 1+ 12/26/18 20:36 Stomatocytes 1+ 12/26/18 20:36 Helmet Cells Not Reportable 12/26/18 20:36 [place] Bodies Not Reportable 12/26/18 20:36 [place] Rings Not Reportable 12/26/18 20:36 [place] Cells Not Reportable 12/26/18 20:36 Bite Cells Not Reportable 12/26/18 20:36 Crenated Cell Not Reportable 12/26/18 20:36 Elliptocytes Not Reportable 12/26/18 20:36 Acanthocytes (Spur) Not Reportable 12/26/18 20:36 Rouleaux Not Reportable 12/26/18 20:36 Hemoglobin C Crystals Not Reportable 12/26/18 20:36 Schistocytes Not Reportable 12/26/18 20:36 Malaria parasites Not Reportable 12/26/18 20:36 Hever Bodies Not Reportable 12/26/18 20:36 Hem Pathologist Commnt No 12/26/18 20:36 PT 15.2 Sec. (12.2-14.9) H 12/26/18 20:36 INR 1.13 (0.87-1.13) 12/26/18 20:36 VBG pH 7.441 (7.320-7.420) H 12/26/18 20:36 Sodium 133 mmol/L (137-145) L 12/26/18 20:36 Potassium 4.5 mmol/L (3.6-5.0) 12/26/18 20:36 Chloride 92.5 mmol/L (98-107) L 12/26/18 20:36 Carbon Dioxide 25 mmol/L (22-30) 12/26/18 20:36 Anion Gap 20 mmol/L 12/26/18 20:36 BUN 13 mg/dL (9-20) 12/26/18 20:36 Creatinine 1.0 mg/dL (0.8-1.5) 12/26/18 20:36 Estimated GFR > 60 ml/min 12/26/18 20:36 BUN/Creatinine Ratio 13 % 12/26/18 20:36 Glucose 121 mg/dL (75-100) H 12/26/18 20:36 Lactic Acid 1.20 mmol/L (0.7-2.0) 12/26/18 20:36 Calcium 9.0 mg/dL (8.4-10.2) 12/26/18 20:36 Total Bilirubin 1.20 mg/dL (0.1-1.2) 12/26/18 20:36 AST 24 units/L (5-40) 12/26/18 20:36 ALT 34 units/L (7-56) 12/26/18 20:36 Alkaline Phosphatase 132 units/L (35-129) H 12/26/18 20:36 Total Protein 7.7 g/dL (6.3-8.2) 12/26/18 20:36 Albumin 3.9 g/dL (3.9-5) 12/26/18 20:36 Albumin/Globulin Ratio 1.0 % 12/26/18 20:36 Urine Color Francesca (Yellow) 12/26/18 21:08 Urine Turbidity Clear (Clear) 12/26/18 21:08 Urine pH 5.0 (5.0-7.0) 12/26/18 21:08 Ur Specific [place] 1.028 (1.003-1.030) 12/26/18 21:08 Urine Protein <15 mg/dl mg/dL (Negative) 12/26/18 21:08 Urine Glucose (UA) Neg mg/dL (Negative) 12/26/18 21:08 Urine Ketones Neg mg/dL (Negative) 12/26/18 21:08 Urine Blood Neg (Negative) 12/26/18 21:08 Urine Nitrite Neg (Negative) 12/26/18 21:08 Urine Bilirubin Neg (Negative) 12/26/18 21:08 Urine Urobilinogen 4.0 mg/dL (<2.0) 12/26/18 21:08 Ur Leukocyte Esterase Tr (Negative) 12/26/18 21:08 Urine WBC (Auto) 13.0 /HPF (0.0-6.0) H 12/26/18 21:08 Urine RBC (Auto) 4.0 /HPF (0.0-6.0) 12/26/18 21:08 U Epithel Cells (Auto) < 1.0 /HPF (0-13.0) 12/26/18 21:08 Urine Mucus 1+ /HPF 12/26/18 21:08 Assessment and Plan Assessment and plan: 48-year-old man with a history of hypertension, hyperlipidemia, peripheral vascular disease status post recent aortobifemoral bypass, Thursday emergency room today for evaluation of fever, chills, drainage from the left groin wound. Status post vancomycin and Zosyn in the emergency room, continue Zosyn, IV morphine, eliquis. Vascular consult is pending, patient seen and examined with nurse practitioner
[2018-12-27] MEDS ORDERED: VANCOMYCIN PHARMACY TO DOSE IV SCH (01:00)
[2018-12-27] MEDS ORDERED: MORPHINE IV PRN (02:48)
[2018-12-27] MEDS ORDERED: ZOFRAN IV PRN (02:48)
[2018-12-27] MEDS ORDERED: TYLENOL PO PRN (02:48)
[2018-12-27 04:38] LABS: Basophils % (Auto) 0.4 % (0.0-1.8); Eosinophils # (Auto) 0.1 K/mm3 (0.0-0.4); Eosinophils % (Auto) 0.7 % (0.0-4.3); Hematocrit 29.5 % (35.5-45.6); Hemoglobin 9.9 gm/dl (11.8-15.2); Lymphocytes # (Auto) 1.3 K/mm3 (1.2-5.4); Lymphocytes % (Auto) 10.4 % (13.4-35.0); Mean Corpuscular HGB Conc 34 % (32-34); Mean Corpuscular Volume 89 fl (84-94); Monocytes # (Auto) 0.8 K/mm3 (0.0-0.8); Monocytes % (Auto) 6.4 % (0.0-7.3); Platelet Count 417 K/mm3 (140-440); Red Blood Count 3.32 M/mm3 (3.65-5.03); Red Cell Distribution Width 14.7 % (13.2-15.2)
[2018-12-27 05:00] LABS: BUN/Creatinine Ratio 13; Blood Urea Nitrogen 12 mg/dL (9-20); Hemolysis Index 2
[2018-12-27] MEDS: ZOSYN/NS 4.5GM/100ML 4.5 GM/100 ML VIAL IV SCH ×3 (05:27→21:13)
[2018-12-27] MEDS ORDERED: ROCEPHIN/NS 1 GM/50 ML 1 GM/50 ML BAG IV SCH (08:00)
[2018-12-27] MEDS: COZAAR PO SCH (09:32)
[2018-12-27] MEDS: ASPIRIN PO SCH (09:32)
[2018-12-27] MEDS: ELIQUIS PO SCH ×2 (09:32→21:19)
[2018-12-27] MEDS: HCTZ PO SCH (09:32)
[2018-12-27] MEDS: SODIUM CHLORIDE FLUSH SYRINGE 10 ML IV SCH ×2 (09:34→21:20)
[2018-12-27] MEDS: VANCOMYCIN/NS 1 GM/250 ML 1 GM/250 ML BAG IV SCH ×2 (09:35→21:56)
[2018-12-27] MEDS ORDERED: LOVENOX SUB-Q SCH (10:00)
--- NOTE | 2018-12-27 10:27 | Progress Note ---
Assessment and Plan Assessment and plan: Sepsis. Present on admission. Patient meets criteria given the fever, tachycardia, leukocytosis and evidence of left groin cellulitis. Follow-up blood cultures. Continue IV antibiotics. Left groin wound/cellulitis. Continue with wound care. IV antibiotics. Consider ID consultation. History of lower extremity ischemia secondary to leg thrombus. Patient is status post thrombectomy 12/10/18. Cont. eliquis. Vascular surgery consultation pending. Hypertension. Continue antihypertensive medications. Hyperlipidemia. Continue Lipitor. History Interval history: No new issues overnight. Hospitalist Physical - Constitutional Vitals: Temp Pulse Resp BP Pulse Ox 99.6 F 90 18 110/71 99 12/27/18 07:24 12/27/18 07:24 12/27/18 07:24 12/27/18 07:24 12/27/18 07:24 General appearance: Present: no acute distress - EENT Eyes: Present: PERRL, EOM intact ENT: hearing intact, clear oral mucosa, dentition normal - Neck Neck: Present: supple, normal ROM - Respiratory Respiratory effort: normal Respiratory: bilateral: CTA - Cardiovascular Rhythm: regular Heart Sounds: Present: S1 & S2. Absent: gallop, rub - Extremities Extremities: no ischemia, No edema, Full ROM - Abdominal General gastrointestinal: soft, non-tender, non-distended, normal bowel sounds - Integumentary Integumentary: Present: clear, warm, dry - Neurologic Neurologic: CNII-XII intact, moves all extremities Results - Labs CBC & Chem 7: 12/27/18 03:31 12/27/18 03:31 Labs: Laboratory Last Values WBC 12.6 K/mm3 (4.5-11.0) H 12/27/18 03:31 RBC 3.32 M/mm3 (3.65-5.03) L 12/27/18 03:31 Hgb 9.9 gm/dl (11.8-15.2) L 12/27/18 03:31 Hct 29.5 % (35.5-45.6) L D 12/27/18 03:31 MCV 89 fl (84-94) 12/27/18 03:31 MCH 30 pg (28-32) 12/27/18 03:31 MCHC 34 % (32-34) 12/27/18 03:31 RDW 14.7 % (13.2-15.2) 12/27/18 03:31 Plt Count 417 K/mm3 (140-440) 12/27/18 03:31 Lymph % (Auto) 10.4 % (13.4-35.0) L 12/27/18 03:31 [place] % (Auto) 6.4 % (0.0-7.3) 12/27/18 03:31 Eos % (Auto) 0.7 % (0.0-4.3) 12/27/18 03:31 Baso % (Auto) 0.4 % (0.0-1.8) 12/27/18 03:31 Lymph # 1.3 K/mm3 (1.2-5.4) 12/27/18 03:31 [place] # 0.8 K/mm3 (0.0-0.8) 12/27/18 03:31 Eos # 0.1 K/mm3 (0.0-0.4) 12/27/18 03:31 Baso # 0.0 K/mm3 (0.0-0.1) 12/27/18 03:31 Add Manual Diff Complete 12/26/18 20:36 Total Counted 100 12/26/18 20:36 Seg Neutrophils % 82.1 % (40.0-70.0) H 12/27/18 03:31 Seg Neuts % (Manual) 84.0 % (40.0-70.0) H 12/26/18 20:36 Band Neutrophils % 0 % 12/26/18 20:36 Lymphocytes % (Manual) 8.0 % (13.4-35.0) L 12/26/18 20:36 Reactive Lymphs % (Man) 0 % 12/26/18 20:36 Monocytes % (Manual) 7.0 % (0.0-7.3) 12/26/18 20:36 Eosinophils % (Manual) 1.0 % (0.0-4.3) 12/26/18 20:36 Basophils % (Manual) 0 % (0.0-1.8) 12/26/18 20:36 Metamyelocytes % 0 % 12/26/18 20:36 Myelocytes % 0 % 12/26/18 20:36 Promyelocytes % 0 % 12/26/18 20:36 Blast Cells % 0 % 12/26/18 20:36 Nucleated RBC % Not Reportable 12/26/18 20:36 Seg Neutrophils # 10.4 K/mm3 (1.8-7.7) H 12/27/18 03:31 Seg Neutrophils # Man 11.2 K/mm3 (1.8-7.7) H 12/26/18 20:36 Band Neutrophils # 0.0 K/mm3 12/26/18 20:36 Lymphocytes # (Manual) 1.1 K/mm3 (1.2-5.4) L 12/26/18 20:36 Abs React Lymphs (Man) 0.0 K/mm3 12/26/18 20:36 Monocytes # (Manual) 0.9 K/mm3 (0.0-0.8) H 12/26/18 20:36 Eosinophils # (Manual) 0.1 K/mm3 (0.0-0.4) 12/26/18 20:36 Basophils # (Manual) 0.0 K/mm3 (0.0-0.1) 12/26/18 20:36 Metamyelocytes # 0.0 K/mm3 12/26/18 20:36 Myelocytes # 0.0 K/mm3 12/26/18 20:36 Promyelocytes # 0.0 K/mm3 12/26/18 20:36 Blast Cells # 0.0 K/mm3 12/26/18 20:36 WBC Morphology Not Reportable 12/26/18 20:36 Hypersegmented Neuts Not Reportable 12/26/18 20:36 Hyposegmented Neuts Not Reportable 12/26/18 20:36 Hypogranular Neuts Not Reportable 12/26/18 20:36 Smudge Cells Not Reportable 12/26/18 20:36 Toxic Granulation Not Reportable 12/26/18 20:36 Toxic Vacuolation Not Reportable 12/26/18 20:36 Dohle Bodies Not Reportable 12/26/18 20:36 Pelger-Huet Anomaly Not Reportable 12/26/18 20:36 Valentín Rods Not Reportable 12/26/18 20:36 Platelet Estimate Appears increased 12/26/18 20:36 Clumped Platelets Not Reportable 12/26/18 20:36 Plt Clumps, EDTA Not Reportable 12/26/18 20:36 Large Platelets Not Reportable 12/26/18 20:36 Giant Platelets Few 12/26/18 20:36 Platelet Satelliting Not Reportable 12/26/18 20:36 Plt Morphology Comment Not Reportable 12/26/18 20:36 RBC Morphology Not Reportable 12/26/18 20:36 Dimorphic RBCs Not Reportable 12/26/18 20:36 Polychromasia Not Reportable 12/26/18 20:36 Hypochromasia Not Reportable 12/26/18 20:36 Poikilocytosis Not Reportable 12/26/18 20:36 Anisocytosis Not Reportable 12/26/18 20:36 Microcytosis Not Reportable 12/26/18 20:36 Macrocytosis Not Reportable 12/26/18 20:36 Spherocytes Not Reportable 12/26/18 20:36 Pappenheimer Bodies Not Reportable 12/26/18 20:36 Sickle Cells Not Reportable 12/26/18 20:36 Target Cells Not Reportable 12/26/18 20:36 Tear Drop Cells Not Reportable 12/26/18 20:36 Ovalocytes 1+ 12/26/18 20:36 Stomatocytes 1+ 12/26/18 20:36 Helmet Cells Not Reportable 12/26/18 20:36 [place] Bodies Not Reportable 12/26/18 20:36 [place] Rings Not Reportable 12/26/18 20:36 Himanshu Cells Not Reportable 12/26/18 20:36 Bite Cells Not Reportable 12/26/18 20:36 Crenated Cell Not Reportable 12/26/18 20:36 Elliptocytes Not Reportable 12/26/18 20:36 Acanthocytes (Spur) Not Reportable 12/26/18 20:36 Rouleaux Not Reportable 12/26/18 20:36 Hemoglobin C Crystals Not Reportable 12/26/18 20:36 Schistocytes Not Reportable 12/26/18 20:36 Malaria parasites Not Reportable 12/26/18 20:36 [place] Bodies Not Reportable 12/26/18 20:36 Hem Pathologist Commnt No 12/26/18 20:36 PT 15.2 Sec. (12.2-14.9) H 12/26/18 20:36 INR 1.13 (0.87-1.13) 12/26/18 20:36 VBG pH 7.441 (7.320-7.420) H 12/26/18 20:36 Sodium 135 mmol/L (137-145) L 12/27/18 03:31 Potassium 4.4 mmol/L (3.6-5.0) 12/27/18 03:31 Chloride 98.1 mmol/L (98-107) 12/27/18 03:31 Carbon Dioxide 23 mmol/L (22-30) 12/27/18 03:31 Anion Gap 18 mmol/L 12/27/18 03:31 BUN 12 mg/dL (9-20) 12/27/18 03:31 Creatinine 0.9 mg/dL (0.8-1.5) 12/27/18 03:31 Estimated GFR > 60 ml/min 12/27/18 03:31 BUN/Creatinine Ratio 13 % 12/27/18 03:31 Glucose 65 mg/dL (75-100) L 12/27/18 03:31 Lactic Acid 1.20 mmol/L (0.7-2.0) 12/26/18 20:36 Calcium 8.0 mg/dL (8.4-10.2) L 12/27/18 03:31 Total Bilirubin 1.20 mg/dL (0.1-1.2) 12/26/18 20:36 AST 24 units/L (5-40) 12/26/18 20:36 ALT 34 units/L (7-56) 12/26/18 20:36 Alkaline Phosphatase 132 units/L (35-129) H 12/26/18 20:36 Total Protein 7.7 g/dL (6.3-8.2) 12/26/18 20:36 Albumin 3.9 g/dL (3.9-5) 12/26/18 20:36 Albumin/Globulin Ratio 1.0 % 12/26/18 20:36 Urine Color Francesca (Yellow) 12/26/18 21:08 Urine Turbidity Clear (Clear) 12/26/18 21:08 Urine pH 5.0 (5.0-7.0) 12/26/18 21:08 Ur Specific [place] 1.028 (1.003-1.030) 12/26/18 21:08 Urine Protein <15 mg/dl mg/dL (Negative) 12/26/18 21:08 Urine Glucose (UA) Neg mg/dL (Negative) 12/26/18 21:08 Urine Ketones Neg mg/dL (Negative) 12/26/18 21:08 Urine Blood Neg (Negative) 12/26/18 21:08 Urine Nitrite Neg (Negative) 12/26/18 21:08 Urine Bilirubin Neg (Negative) 12/26/18 21:08 Urine Urobilinogen 4.0 mg/dL (<2.0) 12/26/18 21:08 Ur Leukocyte Esterase Tr (Negative) 12/26/18 21:08 Urine WBC (Auto) 13.0 /HPF (0.0-6.0) H 12/26/18 21:08 Urine RBC (Auto) 4.0 /HPF (0.0-6.0) 12/26/18 21:08 U Epithel Cells (Auto) < 1.0 /HPF (0-13.0) 12/26/18 21:08 Urine Mucus 1+ /HPF 12/26/18 21:08
--- NOTE | 2018-12-27 22:28 | Consultation ---
History of Present Illness - Reason for Consult Consult date: 12/27/18 Drainage from Left groin following AortaBifem Bypass Requesting physician: KATHRYN MAYES - History of Present Illness This pt was recently admitted due to an acute onset of RLE ischemia. CTA reveal ed AortaIliac occlusive disease. An Aorta bifemoral bypass was performed on 12/14/18. He was noted to have acute thrombus in the right iliac artery intraoperatively, and therefore he was anticoagulated with Eliquis post-op. His activity was increased and his diet advanced. He was subsequently d/cd home, and did well initially. He reports developing swelling to his left groin. This increased in size, and he began to drain fluid from his incision. He returned to the ER, where he was evaluated, and later admitted. A vascular surgery consult was consulted to further evaluate. Past History Past Medical History: hypertension, hyperlipidemia, PVD Past Surgical History: Other (Aorta Bifemoral bypass 12/14/18) Social history: , smoking (h/o smoking cigars) Family history: no significant family history (none listed) Medications and Allergies Allergies Allergy/AdvReac Type Severity Reaction Status Date / Time No Known Allergies Allergy Verified 12/10/18 07:59 Home Medications Medication Instructions Recorded Confirmed Last Taken Type AtorvaSTATin [Lipitor] 40 mg PO QHS 12/10/18 12/26/18 12/09/18 History Losartan/Hydrochlorothiazide 1 each PO QDAY 12/10/18 12/26/18 12/09/18 History [Hyzaar 100-12.5 TAB] Potassium Chloride [K-Dur] 20 meq PO QDAY 3 Days #3 tablet 12/19/18 12/26/18 Unknown Rx oxyCODONE /ACETAMINOPHEN [Percocet 1 tab PO Q6H PRN #15 tablet 12/19/18 12/26/18 Unknown Rx 5/325 mg] Apixaban [Eliquis] 5 mg PO Q12H 12/26/18 12/26/18 Unknown History Aspirin 325 mg PO QDAY 12/26/18 12/26/18 Unknown History Active Meds: Active Medications Acetaminophen (Tylenol) 650 mg PO Q4H PRN PRN Reason: Pain MILD(1-3)/Fever >100.5/LUGO Apixaban (Eliquis) 5 mg PO Q12HR [facility]; Protocol Last Admin: 12/27/18 21:19 Dose: 5 mg Documented by: Aspirin (Aspirin) 325 mg PO QDAY [facility] Last Admin: 12/27/18 09:32 Dose: 325 mg Documented by: Atorvastatin Calcium (Lipitor) 40 mg PO QHS [facility] Last Admin: 12/27/18 21:19 Dose: 40 mg Documented by: Hydrochlorothiazide (Hctz) 12.5 mg PO QDAY [facility] Last Admin: 12/27/18 09:32 Dose: 12.5 mg Documented by: Vancomycin HCl (Vancomycin/Ns 1 Gm/250 Ml) 1 gm in 250 mls @ 250 mls/hr IV Q12H [facility] Last Admin: 12/27/18 21:56 Dose: 250 mls/hr Documented by: Piperacillin Sod/Tazobactam Sod (Zosyn/Ns 4.5gm/100ml) 4.5 gm in 100 mls @ 200 mls/hr IV Q8HR [facility]; Protocol Last Admin: 12/27/18 21:13 Dose: 200 mls/hr Documented by: Losartan Potassium (Cozaar) 100 mg PO QDAY [facility] Last Admin: 12/27/18 09:32 Dose: 100 mg Documented by: Morphine Sulfate (Morphine) 2 mg IV Q4H PRN PRN Reason: Pain, Moderate (4-6) Last Admin: 12/27/18 21:10 Dose: 2 mg Documented by: Ondansetron HCl (Zofran) 4 mg IV Q8H PRN PRN Reason: Nausea And Vomiting Sodium Chloride (Sodium Chloride Flush Syringe 10 Ml) 10 ml IV BID [facility] Last Admin: 12/27/18 21:20 Dose: 10 ml Documented by: Sodium Chloride (Sodium Chloride Flush Syringe 10 Ml) 10 ml IV PRN PRN PRN Reason: LINE FLUSH Review of Systems All systems: negative Exam - Constitutional Vitals: Temp Pulse Resp BP Pulse Ox 99.2 F 90 16 137/79 100 12/27/18 20:03 12/27/18 20:03 12/27/18 20:03 12/27/18 20:03 12/27/18 20:03 General appearance: Present: no acute distress - EENT Eyes: Present: EOM intact ENT: hearing intact - Neck Neck: Present: supple - Respiratory Respiratory effort: normal - Cardiovascular Rhythm: regular - Extremities Extremities: no ischemia, abnormal (Left groin swelling , drains mohini pus to compression from incision. No odor appreciated, no significant erythema) - Psychiatric Psychiatric: appropriate mood/affect, intact judgment & insight, cooperative - Neurologic Neurologic: no focal deficits Results - Labs CBC & Chem 7: 12/28/18 04:15 12/28/18 04:15 Labs: Abnormal lab results 12/27/18 12/27/18 Range/Units 03:31 03:31 WBC 12.6 H (4.5-11.0) K/mm3 RBC 3.32 L (3.65-5.03) M/mm3 Hgb 9.9 L (11.8-15.2) gm/dl Hct 29.5 L D (35.5-45.6) % Lymph % (Auto) 10.4 L (13.4-35.0) % Seg Neutrophils % 82.1 H (40.0-70.0) % Seg Neutrophils # 10.4 H (1.8-7.7) K/mm3 Sodium 135 L (137-145) mmol/L Glucose 65 L (75-100) mg/dL Calcium 8.0 L (8.4-10.2) mg/dL Assessment and Plan Pt recently presented with an acute onset of RLE ischemia. CTA revealed AortaIliac occlusive disease. An Aorta bifemoral bypass was performed on 12/14/18. He was noted to have acute thrombus in the right iliac artery and therefore he was anticoagulated with Eliquis postoperatively. His activity was increased and his diet advanced. He was d/cd home, and did well initially. He subsequently developed swelling to his left groin. This increased in size, and he began to drain fluid from his incision. He returned to the ER, where he was evaluated, and later admitted. A vascular surgery consult was consulted to further evaluate. The pt was examined and noted to have mohini pus draining from his left groin. CTA of the Abd/Pelvis ordered. Recommend ID consult. He will be made NPO after MN for possible surgery tomorrow. Will Plan on I&D of left groin abscess. Pulse lavage the wound, and cover his bypass with a muscle flap. The R,B, AND A explained to the Pt who states understanding and agrees to proceed. - Patient Problems (1) Abscess of left groin Current Visit: Yes Status: Acute (2) Status post aortic bifurcation bypass graft Current Visit: Yes Status: Acute (3) PAD (peripheral artery disease) Current Visit: No Status: Chronic (4) HTN (hypertension) Current Visit: No Status: Chronic (5) Hyperlipidemia Current Visit: No Status: Chronic (6) Tobacco use Current Visit: No Status: Chronic (7) Nicotine dependence Current Visit: No Status: Acute Qualifiers: Nicotine product type: cigarettes Substance use status: in withdrawal Qualified Code(s): F17.213 - Nicotine dependence, cigarettes, with withdrawal
--- NOTE | 2018-12-27 23:57 | Cat Scan Report ---
PROCEDURE: CT ANGIO ABDOMEN PELVIS TECHNIQUE: Computerized axial tomographic angiography of the abdomen and pelvis was performed after the IV injection of iodinated nonionic contrast. The image data was postprocessed using 2-dimensional multiplanar reformatted (MPR) and 3-dimensional (MIP and/or volume rendered) techniques. CT DOSE LENGTH PRODUCT: mGycm HISTORY: Left groin wound. COMPARISONS: None . FINDINGS: An aortobifemoral graft is identified which is patent. Proximal abdominal aorta demonstrates normal c aliber. A moderate degree of stenosis is noted at the origin of celiac artery. Superior mesenteric an d bilateral renal arteries are patent. There is hypoperfusion versus delayed perfusion of inferior po le right kidney which is supplied by an accessory right renal artery which is filling via collaterals . Visualized bilateral femoral arteries are unremarkable Calcified granulomas are noted in the visualized right lung lower lobe consistent with old healed gra nulomatous disease. Moderate degree residual stool is noted. Appendix is not distinctly visualized. T here are no inflammatory changes in the right lower quadrant. Moderate degree of subcutaneous soft ti ssue induration is noted in the left inguinal region and left lower quadrant with a few nonenlarged l ymph nodes in the superficial inguinal region. A focal fluid collection is not identified. A small po cket of air measuring 0.6 cm is noted in this region. 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 Inflammatory changes of the left inguinal region and left lower quadrant without any underlying fluid collection. A small pocket of soft tissue air is noted. . This document is electronically signed by Edwar Traore MD., December 27 2018 11:55:31 PM ET
[2018-12-28 04:48] LABS: Basophils # (Auto) 0.1 K/mm3 (0.0-0.1); Basophils % (Auto) 0.9 % (0.0-1.8); Eosinophils # (Auto) 0.2 K/mm3 (0.0-0.4); Eosinophils % (Auto) 2.1 % (0.0-4.3); Hematocrit 30.5 % (35.5-45.6); Hemoglobin 10.4 gm/dl (11.8-15.2); Lymphocytes # (Auto) 1.1 K/mm3 (1.2-5.4); Lymphocytes % (Auto) 14.2 % (13.4-35.0); Mean Corpuscular HGB Conc 34 % (32-34); Mean Corpuscular Volume 87 fl (84-94); Monocytes # (Auto) 0.5 K/mm3 (0.0-0.8); Monocytes % (Auto) 6.6 % (0.0-7.3); Platelet Count 458 K/mm3 (140-440); Red Blood Count 3.52 M/mm3 (3.65-5.03)
[2018-12-28 05:14] LABS: BUN/Creatinine Ratio 11; Blood Urea Nitrogen 8 mg/dL (9-20); Calcium 8.5 mg/dL (8.4-10.2); Hemolysis Index 3
[2018-12-28] MEDS: ZOSYN/NS 4.5GM/100ML 4.5 GM/100 ML VIAL IV SCH ×3 (05:59→21:51)
[2018-12-28] MEDS: ELIQUIS PO SCH (11:06)
[2018-12-28] MEDS: ASPIRIN PO SCH (11:06)
[2018-12-28] MEDS: COZAAR PO SCH (11:06)
[2018-12-28] MEDS: VANCOMYCIN/NS 1 GM/250 ML 1 GM/250 ML BAG IV SCH (11:07)
[2018-12-28] MEDS: SODIUM CHLORIDE FLUSH SYRINGE 10 ML IV SCH ×2 (11:25→21:51)
[2018-12-28] MEDS: HCTZ PO SCH (11:25)
[2018-12-28] MEDS ORDERED: DECADRON ONE (16:12)
[2018-12-28] MEDS ORDERED: TORADOL ONE (16:12)
[2018-12-28] MEDS ORDERED: SUBLIMAZE ONE (16:12)
[2018-12-28] MEDS ORDERED: DIPRIVAN 10 MG/ML IV ONE (16:12)
[2018-12-28] MEDS ORDERED: ZOFRAN ONE (16:12)
[2018-12-28] MEDS ORDERED: VERSED ONE (16:24)
--- NOTE | 2018-12-28 16:44 | Progress Note ---
Assessment and Plan Assessment and plan: 48-year-old -[place] male presents to ED with fever, postop wound drainage, postop wound pain. On December 15 patient had a aortofemoral bypass, for claudication, occlusion/thrombosis of the infrarenal aorta. The patient postop course was complicated by hypertension, which eventually resolved and he was discharged home on December 19 in stable condition, he was admitted on 12/26 for fever, left groin pain and mohini purulent drainage Sepsis. Present on admission. Patient meets criteria given the fever, tachycardia, leukocytosis and evidence of left groin cellulitis. Follow-up blood cultures. Continue IV antibiotics. Left groin wound/cellulitis. 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 Patient is status post thrombectomy 12/10/18. Cont. eliquis. Vascular surgery consultation pending. Hypertension. Continue antihypertensive medications. Hyperlipidemia. Continue Lipitor. History Interval history: Review of systems Constitutional: No fevers, no malaise, no joint pains CVS: No chest pain, no orthopnea, no dyspnea on exertion, no pedal edema GI: No abdominal pain, no diarrhea, no vomiting, no constipation Respiratory: No shortness of breath, no wheezing, no coughing Hospitalist Physical - Physical exam Narrative exam: General.: Appears well, no distress, nontoxic HEENT: Moist mucous membranes, extraocular muscles intact, no lymphadenopathy Neck: supple Cardiac: S1-S2 heard Lungs: clear to auscultation bilaterally Abdomen: soft , nontender, nondistended, bowel sounds positive Extremities: no edema clubbing or cyanosis Skin: no rash or lesions Neurologic: no gross focal deficits Psych: calm, and cooperative - Constitutional Vitals: Temp Pulse Resp BP Pulse Ox 98.0 F 67 18 108/69 99 12/28/18 11:27 12/28/18 11:27 12/28/18 11:27 12/28/18 11:27 12/28/18 11:27 General appearance: Present: no acute distress Results - Labs CBC & Chem 7: 12/29/18 07:38 12/29/18 07:38 Labs: Laboratory Last Values WBC 8.0 K/mm3 (4.5-11.0) 12/28/18 04:15 RBC 3.52 M/mm3 (3.65-5.03) L 12/28/18 04:15 Hgb 10.4 gm/dl (11.8-15.2) L 12/28/18 04:15 Hct 30.5 % (35.5-45.6) L 12/28/18 04:15 MCV 87 fl (84-94) 12/28/18 04:15 MCH 30 pg (28-32) 12/28/18 04:15 MCHC 34 % (32-34) 12/28/18 04:15 RDW 15.0 % (13.2-15.2) 12/28/18 04:15 Plt Count 458 K/mm3 (140-440) H 12/28/18 04:15 Lymph % (Auto) 14.2 % (13.4-35.0) 12/28/18 04:15 [place] % (Auto) 6.6 % (0.0-7.3) 12/28/18 04:15 Eos % (Auto) 2.1 % (0.0-4.3) 12/28/18 04:15 Baso % (Auto) 0.9 % (0.0-1.8) 12/28/18 04:15 Lymph # 1.1 K/mm3 (1.2-5.4) L 12/28/18 04:15 [place] # 0.5 K/mm3 (0.0-0.8) 12/28/18 04:15 Eos # 0.2 K/mm3 (0.0-0.4) 12/28/18 04:15 Baso # 0.1 K/mm3 (0.0-0.1) 12/28/18 04:15 Add Manual Diff Complete 12/26/18 20:36 Total Counted 100 12/26/18 20:36 Seg Neutrophils % 76.2 % (40.0-70.0) H 12/28/18 04:15 Seg Neuts % (Manual) 84.0 % (40.0-70.0) H 12/26/18 20:36 Band Neutrophils % 0 % 12/26/18 20:36 Lymphocytes % (Manual) 8.0 % (13.4-35.0) L 12/26/18 20:36 Reactive Lymphs % (Man) 0 % 12/26/18 20:36 Monocytes % (Manual) 7.0 % (0.0-7.3) 12/26/18 20:36 Eosinophils % (Manual) 1.0 % (0.0-4.3) 12/26/18 20:36 Basophils % (Manual) 0 % (0.0-1.8) 12/26/18 20:36 Metamyelocytes % 0 % 12/26/18 20:36 Myelocytes % 0 % 12/26/18 20:36 Promyelocytes % 0 % 12/26/18 20:36 Blast Cells % 0 % 12/26/18 20:36 Nucleated RBC % Not Reportable 12/26/18 20:36 Seg Neutrophils # 6.1 K/mm3 (1.8-7.7) 12/28/18 04:15 Seg Neutrophils # Man 11.2 K/mm3 (1.8-7.7) H 12/26/18 20:36 Band Neutrophils # 0.0 K/mm3 12/26/18 20:36 Lymphocytes # (Manual) 1.1 K/mm3 (1.2-5.4) L 12/26/18 20:36 Abs React Lymphs (Man) 0.0 K/mm3 12/26/18 20:36 Monocytes # (Manual) 0.9 K/mm3 (0.0-0.8) H 12/26/18 20:36 Eosinophils # (Manual) 0.1 K/mm3 (0.0-0.4) 12/26/18 20:36 Basophils # (Manual) 0.0 K/mm3 (0.0-0.1) 12/26/18 20:36 Metamyelocytes # 0.0 K/mm3 12/26/18 20:36 Myelocytes # 0.0 K/mm3 12/26/18 20:36 Promyelocytes # 0.0 K/mm3 12/26/18 20:36 Blast Cells # 0.0 K/mm3 12/26/18 20:36 WBC Morphology Not Reportable 12/26/18 20:36 Hypersegmented Neuts Not Reportable 12/26/18 20:36 Hyposegmented Neuts Not Reportable 12/26/18 20:36 Hypogranular Neuts Not Reportable 12/26/18 20:36 Smudge Cells Not Reportable 12/26/18 20:36 Toxic Granulation Not Reportable 12/26/18 20:36 Toxic Vacuolation Not Reportable 12/26/18 20:36 Dohle Bodies Not Reportable 12/26/18 20:36 Pelger-Huet Anomaly Not Reportable 12/26/18 20:36 Valentín Rods Not Reportable 12/26/18 20:36 Platelet Estimate Appears increased 12/26/18 20:36 Clumped Platelets Not Reportable 12/26/18 20:36 Plt Clumps, EDTA Not Reportable 12/26/18 20:36 Large Platelets Not Reportable 12/26/18 20:36 Giant Platelets Few 12/26/18 20:36 Platelet Satelliting Not Reportable 12/26/18 20:36 Plt Morphology Comment Not Reportable 12/26/18 20:36 RBC Morphology Not Reportable 12/26/18 20:36 Dimorphic RBCs Not Reportable 12/26/18 20:36 Polychromasia Not Reportable 12/26/18 20:36 Hypochromasia Not Reportable 12/26/18 20:36 Poikilocytosis Not Reportable 12/26/18 20:36 Anisocytosis Not Reportable 12/26/18 20:36 Microcytosis Not Reportable 12/26/18 20:36 Macrocytosis Not Reportable 12/26/18 20:36 Spherocytes Not Reportable 12/26/18 20:36 Pappenheimer Bodies Not Reportable 12/26/18 20:36 Sickle Cells Not Reportable 12/26/18 20:36 Target Cells Not Reportable 12/26/18 20:36 Tear Drop Cells Not Reportable 12/26/18 20:36 Ovalocytes 1+ 12/26/18 20:36 Stomatocytes 1+ 12/26/18 20:36 Helmet Cells Not Reportable 12/26/18 20:36 [place] Bodies Not Reportable 12/26/18 20:36 [place] Rings Not Reportable 12/26/18 20:36 Himanshu Cells Not Reportable 12/26/18 20:36 Bite Cells Not Reportable 12/26/18 20:36 Crenated Cell Not Reportable 12/26/18 20:36 Elliptocytes Not Reportable 12/26/18 20:36 Acanthocytes (Spur) Not Reportable 12/26/18 20:36 Rouleaux Not Reportable 12/26/18 20:36 Hemoglobin C Crystals Not Reportable 12/26/18 20:36 Schistocytes Not Reportable 12/26/18 20:36 Malaria parasites Not Reportable 12/26/18 20:36 [place]ver Bodies Not Reportable 12/26/18 20:36 Hem Pathologist Commnt No 12/26/18 20:36 PT 15.2 Sec. (12.2-14.9) H 12/26/18 20:36 INR 1.13 (0.87-1.13) 12/26/18 20:36 VBG pH 7.441 (7.320-7.420) H 12/26/18 20:36 Sodium 136 mmol/L (137-145) L 12/28/18 04:15 Potassium 4.0 mmol/L (3.6-5.0) 12/28/18 04:15 Chloride 98.9 mmol/L (98-107) 12/28/18 04:15 Carbon Dioxide 25 mmol/L (22-30) 12/28/18 04:15 Anion Gap 16 mmol/L 12/28/18 04:15 BUN 8 mg/dL (9-20) L 12/28/18 04:15 Creatinine 0.7 mg/dL (0.8-1.5) L 12/28/18 04:15 Estimated GFR > 60 ml/min 12/28/18 04:15 BUN/Creatinine Ratio 11 % 12/28/18 04:15 Glucose 95 mg/dL (75-100) 12/28/18 04:15 Lactic Acid 1.20 mmol/L (0.7-2.0) 12/26/18 20:36 Calcium 8.5 mg/dL (8.4-10.2) 12/28/18 04:15 Total Bilirubin 1.20 mg/dL (0.1-1.2) 12/26/18 20:36 AST 24 units/L (5-40) 12/26/18 20:36 ALT 34 units/L (7-56) 12/26/18 20:36 Alkaline Phosphatase 132 units/L (35-129) H 12/26/18 20:36 Total Protein 7.7 g/dL (6.3-8.2) 12/26/18 20:36 Albumin 3.9 g/dL (3.9-5) 12/26/18 20:36 Albumin/Globulin Ratio 1.0 % 12/26/18 20:36 Urine Color Francesca (Yellow) 12/26/18 21:08 Urine Turbidity Clear (Clear) 12/26/18 21:08 Urine pH 5.0 (5.0-7.0) 12/26/18 21:08 Ur Specific [place] 1.028 (1.003-1.030) 12/26/18 21:08 Urine Protein <15 mg/dl mg/dL (Negative) 12/26/18 21:08 Urine Glucose (UA) Neg mg/dL (Negative) 12/26/18 21:08 Urine Ketones Neg mg/dL (Negative) 12/26/18 21:08 Urine Blood Neg (Negative) 12/26/18 21:08 Urine Nitrite Neg (Negative) 12/26/18 21:08 Urine Bilirubin Neg (Negative) 12/26/18 21:08 Urine Urobilinogen 4.0 mg/dL (<2.0) 12/26/18 21:08 Ur Leukocyte Esterase Tr (Negative) 12/26/18 21:08 Urine WBC (Auto) 13.0 /HPF (0.0-6.0) H 12/26/18 21:08 Urine RBC (Auto) 4.0 /HPF (0.0-6.0) 12/26/18 21:08 U Epithel Cells (Auto) < 1.0 /HPF (0-13.0) 12/26/18 21:08 Urine Mucus 1+ /HPF 12/26/18 21:08
[2018-12-28] MEDS ORDERED: ANCEF/STERILE WATER 2 GM/20 ML IV ONE (16:47)
[2018-12-28] MEDS ORDERED: ANCEF/STERILE WATER 2 GM/20 ML 4 GM/40 ML SYRINGE IV ONE (16:49)
--- NOTE | 2018-12-28 17:02 | Anesthesia Consultation ---
Anesthesia Consult and Med Hx Date of service: 12/28/18 - Airway Anesthetic Teeth Evaluation: Good ROM Head & Neck: Adequate Mental/Hyoid Distance: Adequate Mallampati Class: Class II Intubation Access Assessment: Good - Pulmonary Exam CTA: Yes - Cardiac Exam Cardiac Exam: RRR - Pre-Operative Health Status ASA Pre-Surgery Classification: ASA2 Proposed Anesthetic Plan: General - Pulmonary Hx Smoking: Yes (1/2PPD x30yrs) Hx Asthma: No Hx Respiratory Symptoms: No COPD: No Hx Pneumonia: No - Cardiovascular System Hx Hypertension: Yes Hx Heart Attack/AMI: No Hx Percutaneous Transluminal Coronary Angioplasty (PTCA): No Hx Cardia Arrhythmia: No Hx Valvular Heart Disease: No Hx Peripheral Vascular Disease: Yes (PAD B/L LE) - Central Nervous System Hx Seizures: No CVA: No - Gastrointestinal Hx Gastroesophageal Reflux Disease: No - Endocrine Hx Renal Disease: No Hx End Stage Renal Disease: No Hx Liver Disease: No Hx Insulin Dependent Diabetes: No Hx Non-Insulin Dependent Diabetes: No Hx Thyroid Disease: No - Hematic Hx Anemia: No - Other Systems Hx Substance Use: No Hx Cancer: No Hx Obesity: No
[2018-12-28] MEDS ORDERED: NEO SYNEPHRINE/NS Syringe(OR USE) IV ONE (17:05)
[2018-12-28] MEDS ORDERED: DILAUDID ONE ×2 (17:13→18:21)
[2018-12-28] MEDS ORDERED: ANTIBIOTIC OINT TP ONE (17:52)
[2018-12-28] MEDS ORDERED: NARCAN 0.4 MG/1 ML IV PRN (17:53)
--- NOTE | 2018-12-28 17:57 | Operative Report ---
Operative Report Operative Report: Date of procedure: 12/28/2018 Pre-operative diagnosis: Infected left femoral wound Post-operative diagnosis: Same Procedure name(s): 1. Debridement and irrigation of left femoral wound 2. Intraoperative cultures of left femoral wound 3. Sartorius muscle flap over left limb of aortobifemoral bypass graft 4. Placement of wound VAC Surgeon: Ángel Howard MD [employer] Farmworker: JOON Nava Anesthesia: Gen. endotracheal tube EBL: Less than 200 mL Operative indication: Patient is a 48-year-old man who is now approximately 3 weeks status post aortobifemoral bypass graft. He's developed purulent drainage at the left inguinal area. CT scan shows involvement of the perigraft area in the left femoral anastomosis. He presents now for debridement and muscle flap over the left femoral artery anastomosis. Findings: Obvious purulence in the superficial tissue. There was an area that connected with the deep through a hematoma. There appeared to be a good result at the end of procedure. Procedure: Placed on the table in the supine position. He was given appropriate anesthesia. The area over the left inguinal region was prepped with ChloraPrep solution and draped in usual sterile fashion. The existing femoral incision was reopened and pus was evacuated from the superficial tissue. There is an area in the proximal portion of the wound where the pin was tracked down into a hematoma around the graft. The deeper tissue was opened and a hematoma was evacuated from the area. Surprisingly, some of the graft appeared to be incorporated into the surrounding tissue. Pulse lavage was then used to irrigate the tissue around the area until it appeared to be clean. All nonviable tissue was debrided. The incision was extended slightly distally. Sartorius muscle was identified and divided distally and mobilized proximally. The muscle tissue was sewn over the top of the graft and approximated to the surrounding soft tissue. The wound itself was then closed using running #1 Prolene. The lower 3 or 4 cm of the wound were left open to place a wound VAC. There was an excellent seal. The wound VAC. Intraoperative cultures were sent of the deep tissue. The patient tolerated the procedure well. Sponge, needle, and instrument counts were reported as correct. He was taken from the operating room to the recovery room in stable condition.
[2018-12-28] MEDS ORDERED: MORPHINE PCA 30MG/30ML IV SCH (18:00)
[2018-12-28] MEDS ORDERED: NACL 0.9% 1000 ML 1,000 ML IV SCH (18:00)
[2018-12-28] MEDS ORDERED: NORCO 5/325 PO PRN (18:18)
[2018-12-28] MEDS ORDERED: DILAUDID IV PRN (18:24)
--- NOTE | 2018-12-28 18:24 | Event Note ---
Date: 12/28/18 Patient off the floor for surgery. Chart reviewed. Post aorto-femoral bypass with groin infection growing MRSA. Continue IV Vancomycin. Will need to follow up operative report and discuss with vascular surgery regarding depth of the infection and whether any concerns for graft infection. Especially since MRSA is a highly invasive organism known to cause biofilms on prosthetic material making treatment prolonged and difficult with high risk of relapse, requiring superintendent container terminal suppression. Full consult to follow tomorrow.
[2018-12-28] MEDS ORDERED: LACTATED RINGERS 1,000 ML ONE (18:29)
[2018-12-29] MEDS: VANCOMYCIN/NS 1 GM/250 ML 1 GM/250 ML BAG IV SCH ×2 (01:22→12:38)
[2018-12-29] MEDS: ZOSYN/NS 4.5GM/100ML 4.5 GM/100 ML VIAL IV SCH ×3 (05:22→22:08)
[2018-12-29 08:06] LABS: Hematocrit 29.3 % (35.5-45.6); Hemoglobin 10.1 gm/dl (11.8-15.2); Mean Corpuscular HGB Conc 34 % (32-34); Mean Corpuscular Volume 87 fl (84-94); Platelet Count 495 K/mm3 (140-440); Red Blood Count 3.35 M/mm3 (3.65-5.03); Red Cell Distribution Width 14.5 % (13.2-15.2)
[2018-12-29 08:22] LABS: BUN/Creatinine Ratio 19; Blood Urea Nitrogen 13 mg/dL (9-20); Calcium 8.3 mg/dL (8.4-10.2); Hemolysis Index 0
[2018-12-29] MEDS: COZAAR PO SCH ×2 (08:47→10:00)
[2018-12-29] MEDS: ASPIRIN PO SCH ×2 (08:48→10:00)
[2018-12-29] MEDS: HCTZ PO SCH ×2 (08:48→10:00)
--- NOTE | 2018-12-29 09:27 | Progress Note ---
Assessment and Plan Assessment and plan: 48-year-old -Serbian male presents to ED with fever, postop wound drainage, postop wound pain. On December 15 patient had a aortofemoral bypass, for claudication, occlusion/thrombosis of the infrarenal aorta. The patient postop course was complicated by hypertension, which eventually resolved and he was discharged home on December 19 in stable condition, he was admitted on 12/26 for fever, left groin pain and mohini purulent drainage Sepsis. Status post incision and drainage by vascular surgery. Continue antibiotics per ID, to be discharged with wound VAC Left groin wound/cellulitis. 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 Patient is status post thrombectomy 12/10/18. Cont. eliquis. Vascular surgery consultation pending. Hypertension. Continue antihypertensive medications. Hyperlipidemia. Continue Lipitor. History Interval history: Review of systems Constitutional: No fevers, no malaise, no joint pains CVS: No chest pain, no orthopnea, no dyspnea on exertion, no pedal edema GI: No abdominal pain, no diarrhea, no vomiting, no constipation Respiratory: No shortness of breath, no wheezing, no coughing Hospitalist Physical - Physical exam Narrative exam: General.: Appears well, no distress, nontoxic HEENT: Moist mucous membranes, extraocular muscles intact, no lymphadenopathy Neck: supple Cardiac: S1-S2 heard Lungs: clear to auscultation bilaterally Abdomen: soft , nontender, nondistended, bowel sounds positive Extremities: no edema clubbing or cyanosis Skin: no rash or lesions Neurologic: no gross focal deficits Psych: calm, and cooperative - Constitutional Vitals: Temp Pulse Resp BP Pulse Ox 97.9 F 72 18 111/69 100 12/29/18 08:42 12/29/18 08:47 12/29/18 08:42 12/29/18 08:47 12/29/18 08:42 General appearance: Present: no acute distress Results - Labs CBC & Chem 7: 12/31/18 Unknown 12/29/18 07:38 Labs: Laboratory Last Values WBC 8.1 K/mm3 (4.5-11.0) 12/29/18 07:38 RBC 3.35 M/mm3 (3.65-5.03) L 12/29/18 07:38 Hgb 10.1 gm/dl (11.8-15.2) L 12/29/18 07:38 Hct 29.3 % (35.5-45.6) L 12/29/18 07:38 MCV 87 fl (84-94) 12/29/18 07:38 MCH 30 pg (28-32) 12/29/18 07:38 MCHC 34 % (32-34) 12/29/18 07:38 RDW 14.5 % (13.2-15.2) 12/29/18 07:38 Plt Count 495 K/mm3 (140-440) H 12/29/18 07:38 Lymph % (Auto) 14.2 % (13.4-35.0) 12/28/18 04:15 [place] % (Auto) 6.6 % (0.0-7.3) 12/28/18 04:15 Eos % (Auto) 2.1 % (0.0-4.3) 12/28/18 04:15 Baso % (Auto) 0.9 % (0.0-1.8) 12/28/18 04:15 Lymph # 1.1 K/mm3 (1.2-5.4) L 12/28/18 04:15 [place] # 0.5 K/mm3 (0.0-0.8) 12/28/18 04:15 Eos # 0.2 K/mm3 (0.0-0.4) 12/28/18 04:15 Baso # 0.1 K/mm3 (0.0-0.1) 12/28/18 04:15 Add Manual Diff Complete 12/26/18 20:36 Total Counted 100 12/26/18 20:36 Seg Neutrophils % 76.2 % (40.0-70.0) H 12/28/18 04:15 Seg Neuts % (Manual) 84.0 % (40.0-70.0) H 12/26/18 20:36 Band Neutrophils % 0 % 12/26/18 20:36 Lymphocytes % (Manual) 8.0 % (13.4-35.0) L 12/26/18 20:36 Reactive Lymphs % (Man) 0 % 12/26/18 20:36 Monocytes % (Manual) 7.0 % (0.0-7.3) 12/26/18 20:36 Eosinophils % (Manual) 1.0 % (0.0-4.3) 12/26/18 20:36 Basophils % (Manual) 0 % (0.0-1.8) 12/26/18 20:36 Metamyelocytes % 0 % 12/26/18 20:36 Myelocytes % 0 % 12/26/18 20:36 Promyelocytes % 0 % 12/26/18 20:36 Blast Cells % 0 % 12/26/18 20:36 Nucleated RBC % Not Reportable 12/26/18 20:36 Seg Neutrophils # 6.1 K/mm3 (1.8-7.7) 12/28/18 04:15 Seg Neutrophils # Man 11.2 K/mm3 (1.8-7.7) H 12/26/18 20:36 Band Neutrophils # 0.0 K/mm3 12/26/18 20:36 Lymphocytes # (Manual) 1.1 K/mm3 (1.2-5.4) L 12/26/18 20:36 Abs React Lymphs (Man) 0.0 K/mm3 12/26/18 20:36 Monocytes # (Manual) 0.9 K/mm3 (0.0-0.8) H 12/26/18 20:36 Eosinophils # (Manual) 0.1 K/mm3 (0.0-0.4) 12/26/18 20:36 Basophils # (Manual) 0.0 K/mm3 (0.0-0.1) 12/26/18 20:36 Metamyelocytes # 0.0 K/mm3 12/26/18 20:36 Myelocytes # 0.0 K/mm3 12/26/18 20:36 Promyelocytes # 0.0 K/mm3 12/26/18 20:36 Blast Cells # 0.0 K/mm3 12/26/18 20:36 WBC Morphology Not Reportable 12/26/18 20:36 Hypersegmented Neuts Not Reportable 12/26/18 20:36 Hyposegmented Neuts Not Reportable 12/26/18 20:36 Hypogranular Neuts Not Reportable 12/26/18 20:36 Smudge Cells Not Reportable 12/26/18 20:36 Toxic Granulation Not Reportable 12/26/18 20:36 Toxic Vacuolation Not Reportable 12/26/18 20:36 Dohle Bodies Not Reportable 12/26/18 20:36 Pelger-Huet Anomaly Not Reportable 12/26/18 20:36 Valentín Rods Not Reportable 12/26/18 20:36 Platelet Estimate Appears increased 12/26/18 20:36 Clumped Platelets Not Reportable 12/26/18 20:36 Plt Clumps, EDTA Not Reportable 12/26/18 20:36 Large Platelets Not Reportable 12/26/18 20:36 Giant Platelets Few 12/26/18 20:36 Platelet Satelliting Not Reportable 12/26/18 20:36 Plt Morphology Comment Not Reportable 12/26/18 20:36 RBC Morphology Not Reportable 12/26/18 20:36 Dimorphic RBCs Not Reportable 12/26/18 20:36 Polychromasia Not Reportable 12/26/18 20:36 Hypochromasia Not Reportable 12/26/18 20:36 Poikilocytosis Not Reportable 12/26/18 20:36 Anisocytosis Not Reportable 12/26/18 20:36 Microcytosis Not Reportable 12/26/18 20:36 Macrocytosis Not Reportable 12/26/18 20:36 Spherocytes Not Reportable 12/26/18 20:36 Pappenheimer Bodies Not Reportable 12/26/18 20:36 Sickle Cells Not Reportable 12/26/18 20:36 Target Cells Not Reportable 12/26/18 20:36 Tear Drop Cells Not Reportable 12/26/18 20:36 Ovalocytes 1+ 12/26/18 20:36 Stomatocytes 1+ 12/26/18 20:36 Helmet Cells Not Reportable 12/26/18 20:36 [place] Bodies Not Reportable 12/26/18 20:36 [place] Rings Not Reportable 12/26/18 20:36 [place] Cells Not Reportable 12/26/18 20:36 Bite Cells Not Reportable 12/26/18 20:36 Crenated Cell Not Reportable 12/26/18 20:36 Elliptocytes Not Reportable 12/26/18 20:36 Acanthocytes (Spur) Not Reportable 12/26/18 20:36 Rouleaux Not Reportable 12/26/18 20:36 Hemoglobin C Crystals Not Reportable 12/26/18 20:36 Schistocytes Not Reportable 12/26/18 20:36 Malaria parasites Not Reportable 12/26/18 20:36 [place] Bodies Not Reportable 12/26/18 20:36 Hem Pathologist Commnt No 12/26/18 20:36 PT 15.2 Sec. (12.2-14.9) H 12/26/18 20:36 INR 1.13 (0.87-1.13) 12/26/18 20:36 VBG pH 7.441 (7.320-7.420) H 12/26/18 20:36 Sodium 135 mmol/L (137-145) L 12/29/18 07:38 Potassium 4.3 mmol/L (3.6-5.0) 12/29/18 07:38 Chloride 100.0 mmol/L (98-107) 12/29/18 07:38 Carbon Dioxide 26 mmol/L (22-30) 12/29/18 07:38 Anion Gap 13 mmol/L 12/29/18 07:38 BUN 13 mg/dL (9-20) 12/29/18 07:38 Creatinine 0.7 mg/dL (0.8-1.5) L 12/29/18 07:38 Estimated GFR > 60 ml/min 12/29/18 07:38 BUN/Creatinine Ratio 19 % 12/29/18 07:38 Glucose 117 mg/dL (75-100) H 12/29/18 07:38 Lactic Acid 1.20 mmol/L (0.7-2.0) 12/26/18 20:36 Calcium 8.3 mg/dL (8.4-10.2) L 12/29/18 07:38 Total Bilirubin 1.20 mg/dL (0.1-1.2) 12/26/18 20:36 AST 24 units/L (5-40) 12/26/18 20:36 ALT 34 units/L (7-56) 12/26/18 20:36 Alkaline Phosphatase 132 units/L (35-129) H 12/26/18 20:36 Total Protein 7.7 g/dL (6.3-8.2) 12/26/18 20:36 Albumin 3.9 g/dL (3.9-5) 12/26/18 20:36 Albumin/Globulin Ratio 1.0 % 12/26/18 20:36 Urine Color Francesca (Yellow) 12/26/18 21:08 Urine Turbidity Clear (Clear) 12/26/18 21:08 Urine pH 5.0 (5.0-7.0) 12/26/18 21:08 Ur Specific [place] 1.028 (1.003-1.030) 12/26/18 21:08 Urine Protein <15 mg/dl mg/dL (Negative) 12/26/18 21:08 Urine Glucose (UA) Neg mg/dL (Negative) 12/26/18 21:08 Urine Ketones Neg mg/dL (Negative) 12/26/18 21:08 Urine Blood Neg (Negative) 12/26/18 21:08 Urine Nitrite Neg (Negative) 12/26/18 21:08 Urine Bilirubin Neg (Negative) 12/26/18 21:08 Urine Urobilinogen 4.0 mg/dL (<2.0) 12/26/18 21:08 Ur Leukocyte Esterase Tr (Negative) 12/26/18 21:08 Urine WBC (Auto) 13.0 /HPF (0.0-6.0) H 12/26/18 21:08 Urine RBC (Auto) 4.0 /HPF (0.0-6.0) 12/26/18 21:08 U Epithel Cells (Auto) < 1.0 /HPF (0-13.0) 12/26/18 21:08 Urine Mucus 1+ /HPF 12/26/18 21:08
[2018-12-29] MEDS: SODIUM CHLORIDE FLUSH SYRINGE 10 ML IV SCH (12:42)
--- NOTE | 2018-12-29 13:52 | Consultation ---
History of Present Illness - Reason for Consult Consult date: 12/29/18 Left groin infection, MRSA Requesting physician: CHAITANYA THORNTON - History of Present Illness The patient is a 48-year-old male who on 12/14/2018 underwent a aortobifemoral bypass with Dacron graft due to left leg claudication and thrombus requiring thrombectomy presented to the emergency room on 12/26/2018 with complaints of purulent drainage from his left groin surgical site. Patient states that about one week postoperatively, he started developing some whitish purulent drainage. He also then developed some fevers and chills. CT scan on admission showed concerns for left groin infection. Patient was evaluated by vascular surgery and on 12/28/2018 he underwent debridement and irrigation of the left femoral wound, along with sartorius muscle flap over the left limb of the aortobifemoral bypass graft. As per the operative report, there was obvious purulence in the superficial tissue. There was an area that connected with the deep structures through a hematoma. Currently, patient is on IV Zosyn and vancomycin. Clinically feeling well. Denies any nausea, vomiting or loose watery stools. Review of Systems: General: no fevers,chills or rigors at present HEENT: no new visual disturbance Respiratory: No cough, sputum, hemoptysis or shortness of breath Cardiovascular: No chest pain, syncope Gastrointestinal: No nausea, vomiting or diarrhea Genitourinary: No dysuria or hematuria Musculoskeletal: No new or worsening neck pain or back pain Neurologic: No headaches, seizures Hematologic: No easy bruising or bleeding Endocrine: No night sweats or acute weight loss Skin: negative for rash, jaundice Psychiatric: No suicidal or homicidal ideation Past History Past Medical History: hypertension, hyperlipidemia, PVD Past Surgical History: Other (Aorta Bifemoral bypass 12/14/18) Social history: , smoking (h/o smoking cigars) Family history: no significant family history (none listed) Medications and Allergies Allergies Allergy/AdvReac Type Severity Reaction Status Date / Time No Known Allergies Allergy Verified 12/10/18 07:59 Home Medications Medication Instructions Recorded Confirmed Last Taken Type AtorvaSTATin [Lipitor] 40 mg PO QHS 12/10/18 12/26/18 12/09/18 History Losartan/Hydrochlorothiazide 1 each PO QDAY 12/10/18 12/26/18 12/09/18 History [Hyzaar 100-12.5 TAB] Potassium Chloride [K-Dur] 20 meq PO QDAY 3 Days #3 tablet 12/19/18 12/26/18 Unknown Rx oxyCODONE /ACETAMINOPHEN [Percocet 1 tab PO Q6H PRN #15 tablet 12/19/18 12/26/18 Unknown Rx 5/325 mg] Apixaban [Eliquis] 5 mg PO Q12H 12/26/18 12/26/18 Unknown History Aspirin 325 mg PO QDAY 12/26/18 12/26/18 Unknown History Active Meds: Active Medications Acetaminophen (Tylenol) 650 mg PO Q4H PRN PRN Reason: Pain MILD(1-3)/Fever >100.5/LUGO Acetaminophen/Hydrocodone Bitart ([place] 5/325) 2 each PO Q6H PRN PRN Reason: Pain, Moderate (4-6) Apixaban (Eliquis) 5 mg PO Q12HR [facility]; Protocol Aspirin (Aspirin) 325 mg PO QDAY [facility] Last Admin: 12/29/18 10:00 Dose: Not Given Documented by: Atorvastatin Calcium (Lipitor) 40 mg PO QHS [facility] Last Admin: 12/29/18 01:17 Dose: Not Given Documented by: Hydrochlorothiazide (Hctz) 12.5 mg PO QDAY [facility] Last Admin: 12/29/18 10:00 Dose: Not Given Documented by: Hydromorphone HCl (Dilaudid) 0.5 mg IV Q10M PRN PRN Reason: Pain , Severe (7-10) Last Admin: 12/28/18 18:10 Dose: 0.5 mg Documented by: Piperacillin Sod/Tazobactam Sod (Zosyn/Ns 4.5gm/100ml) 4.5 gm in 100 mls @ 200 mls/hr IV Q8HR [facility]; Protocol Last Admin: 12/29/18 05:22 Dose: 200 mls/hr Documented by: Sodium Chloride (Nacl 0.9% 1000 Ml) 1,000 mls @ 42 mls/hr IV DIRECT ALESHA Daptomycin 500 mg/ Sodium (Chloride) 100 mls @ 200 mls/hr IV Q24H [facility]; Protocol Losartan Potassium (Cozaar) 100 mg PO QDAY [facility] Last Admin: 12/29/18 10:00 Dose: Not Given Documented by: Morphine Sulfate (Morphine) 2 mg IV Q4H PRN PRN Reason: Pain, Moderate (4-6) Last Admin: 12/27/18 21:10 Dose: 2 mg Documented by: Morphine Sulfate (Morphine Family Counselor 30mg/30ml) 0 mg IV DIRECT [facility]; Protocol Last Admin: 12/28/18 19:50 Dose: 1 cartstart Documented by: Naloxone HCl (Narcan 0.4 Mg/1 Ml) 0.1 mg IV Q2MIN PRN PRN Reason: Res Rate </= 8 or 02 SAT < 92% Ondansetron HCl (Zofran) 4 mg IV Q8H PRN PRN Reason: Nausea And Vomiting Sodium Chloride (Sodium Chloride Flush Syringe 10 Ml) 10 ml IV BID ALESHA Last Admin: 12/29/18 12:42 Dose: Not Given Documented by: Sodium Chloride (Sodium Chloride Flush Syringe 10 Ml) 10 ml IV PRN PRN PRN Reason: LINE FLUSH Physical Examination - Physical Exam Narrative exam: Physical Exam: Constitutional: Alert, cooperative. No acute distress Head, Ears, Nose: Normocephalic, atraumatic. External ears, nose normal Eyes: Conjunctivae/corneas clear. No icterus. No ptosis. Neck: Supple, no meningeal signs Oral: no thrush Cardiovascular: S1, S2 normal. Respiratory: Good air entry, clear to auscultation bilaterally GI: Soft, non-tender; bowel sounds normal. No peritoneal signs. Midline abdominal wound with jackson, right groin wound intact, left groin with woundVAC + Musculoskeletal: No pedal edema, no cyanosis. Skin: No rash or abscess Hem/Lymphatic: No palpable cervical or supraclavicular nodes. No lymphangitis Psych: Mood ok. Affect normal Neurological: Awake, alert, oriented. No gross abnormality - Constitutional Vitals: Vital Signs Temp Pulse Resp BP Pulse Ox 97.9 F 72 18 111/69 100 12/29/18 08:42 12/29/18 08:47 12/29/18 11:15 12/29/18 08:47 12/29/18 08:42 Temperature -Last 24 Hours Temperature 97.9 F Temperature 97.6 F Temperature 98.0 F Temperature 97.7 F Temperature 97.5 F Temperature 97.6 F Temperature 97.2 F Results - Labs CBC & Chem 7: 12/29/18 07:38 12/29/18 07:38 Labs: Abnormal lab results 12/29/18 12/29/18 Range/Units 07:38 07:38 RBC 3.35 L (3.65-5.03) M/mm3 Hgb 10.1 L (11.8-15.2) gm/dl Hct 29.3 L (35.5-45.6) % Plt Count 495 H (140-440) K/mm3 Sodium 135 L (137-145) mmol/L Creatinine 0.7 L (0.8-1.5) mg/dL Glucose 117 H (75-100) mg/dL Calcium 8.3 L (8.4-10.2) mg/dL - Imaging and Cardiology CT scan - abdomen: report reviewed, image reviewed CT scan - chest: report reviewed, image reviewed (left groin infection) Assessment and Plan Cultures: 12/26/2018 Blood Culture: No growth at 48 hours 12/26/2018 wound culture: MRSA 12/26/2018 urine culture: mixed growth 12/28/2018 surgical culture: In process A/P: 48/M with peripheral vascular diease, HLD, HTN admitted with: 1) Left groin wound infection in the setting of a recent aortobifemoral bypass graft surgery with Dacron graft: now s/p I&D and sartorius muscle flap. Op note reviewed, possible deeper connection with infection. Culture growing MRSA which is likely to have seeded the graft since it is a highly invasive organism. Hence, would treat with 6 weeks of IV antibiotics followed by PO suppression to reduce risk of relapse. Patient is on losartan and hydrochlorothiazide as an outpatient. Would prefer to use daptomycin to minimize risk of nephrotoxicity. Recs: Discontinued vancomycin Continue Zosyn for now, anticipate stopping if no additional organisms grow on culture Started IV daptomycin 500 mg every 24 hours Check baseline CK and then weekly thereafter PICC line ordered MD Debbie Paez [facility] C: [phone] O: [phone] F: [phone]
--- NOTE | 2018-12-29 16:12 | XRay Report ---
PROCEDURE: XR CHEST 1V AP TECHNIQUE: Frontal portable view of the chest HISTORY: Right upper arm PICC placement COMPARISONS: Chest x-ray dated December 26, 2018 FINDINGS: There has been interval placement of a right-sided PICC line with the tip projected in the region of the right atrium just beyond the level of the cavoatrial junction.. There is no evidence of focal infiltrate, pneumothorax or pleural fluid collection. The cardiomediastinal silhouette is normal in appearance. The bony structures are unremarkable. Skin closure jackson are projected over the midline of the lower chest and upper abdomen. IMPRESSION: 1. Tip of the PICC line catheter is projected in the region of the right atrium just beyond the level of the caval atrial junction. 2. Otherwise no significant change since previous study of December 26, 2018. This document is electronically signed by Liv Gillis MD., December 29 2018 04:10:22 PM ET
--- NOTE | 2018-12-29 16:58 | Progress Note ---
Assessment and Plan - Patient Problems (1) Abscess of left groin Current Visit: Yes Status: Acute Plan to address problem: Patient is now status post evacuation of hematoma and infection of the left groin. Wound VAC is in place and appears to be working well. He has left lateral thigh numbness which is expected after the mobilization of the sartorius flap. Patient is a potential candidate for home intravenous antibiotics. However, he needs to have a wound VAC in place at home prior to discharge. Overall, the graft itself was not grossly contaminated. The period of materials in contact with a hematoma that was around the graft however. There was some mild incorporation of the graft which was encouraging. The graft is now isolated by a muscle flap. I recommend extended therapy with intravenous antibiotics. He may require treatment for as long as 3 months. He should probably be placed on suppressive oral antibiotics after that for at least a year. Situation discussed in detail with the patient. Subjective Date of service: 12/29/18 Interval history: SP revision and drainage of left femoral wound. Complains of numbness on the lateral left thigh. Pain is minimal. Objective - Constitutional Vitals: Vital Signs - 12hr 12/29/18 12/29/18 12/29/18 05:50 08:42 08:47 Temperature 97.9 F Pulse Rate 72 72 Respiratory 17 18 Rate Blood Pressure 111/69 Blood Pressure 111/69 [Left] O2 Sat by Pulse 100 Oximetry 12/29/18 12/29/18 09:15 11:15 Temperature Pulse Rate Respiratory 18 18 Rate Blood Pressure Blood Pressure [Left] O2 Sat by Pulse Oximetry General appearance: Present: no acute distress Extremity abnormal: other (wound VAC is in place over the left femoral incision. No erythema is noted around the area. The wound is minimally tender.) - Labs CBC & Chem 7: 12/29/18 07:38 12/29/18 07:38 Labs: Abnormal lab results 12/29/18 12/29/18 Range/Units 07:38 07:38 RBC 3.35 L (3.65-5.03) M/mm3 Hgb 10.1 L (11.8-15.2) gm/dl Hct 29.3 L (35.5-45.6) % Plt Count 495 H (140-440) K/mm3 Sodium 135 L (137-145) mmol/L Creatinine 0.7 L (0.8-1.5) mg/dL Glucose 117 H (75-100) mg/dL Calcium 8.3 L (8.4-10.2) mg/dL Medications & Allergies - Medications Allergies/Adverse Reactions: Allergies No Known Allergies Allergy (Verified 12/10/18 07:59) Home Medications: Home Medications Medication Instructions Recorded Confirmed Last Taken Type AtorvaSTATin [Lipitor] 40 mg PO QHS 12/10/18 12/26/18 12/09/18 History Losartan/Hydrochlorothiazide 1 each PO QDAY 12/10/18 12/26/18 12/09/18 History [Hyzaar 100-12.5 TAB] Potassium Chloride [K-Dur] 20 meq PO QDAY 3 Days #3 tablet 12/19/18 12/26/18 Unknown Rx oxyCODONE /ACETAMINOPHEN [Percocet 1 tab PO Q6H PRN #15 tablet 12/19/18 12/26/18 Unknown Rx 5/325 mg] Apixaban [Eliquis] 5 mg PO Q12H 12/26/18 12/26/18 Unknown History Aspirin 325 mg PO QDAY 12/26/18 12/26/18 Unknown History Active Medications: Generic Name Dose Route Start Last Admin Trade Name Freq PRN Reason Stop Dose Admin Acetaminophen 650 mg 12/27/18 02:48 Tylenol PO Q4H PRN Pain MILD(1-3)/Fever >100.5/LUGO Acetaminophen/Hydrocodone Bitart 2 each 12/28/18 18:18 [place] 5/325 PO Q6H PRN Pain, Moderate (4-6) Apixaban 5 mg 12/29/18 22:00 Eliquis PO Q12HR [facility] Protocol Aspirin 325 mg 12/27/18 10:00 12/29/18 10:00 Aspirin PO Not Given QDAY [facility] Atorvastatin Calcium 40 mg 12/27/18 22:00 12/29/18 01:17 Lipitor PO Not Given QHS [facility] Hydrochlorothiazide 12.5 mg 12/27/18 10:00 12/29/18 10:00 Hctz PO Not Given QDAY [facility] Hydromorphone HCl 0.5 mg 12/28/18 18:24 12/28/18 18:10 Dilaudid IV 0.5 mg Q10M PRN Administration Pain , Severe (7-10) Piperacillin Sod/Tazobactam Sod 4.5 gm in 100 mls @ 200 mls/hr 12/27/18 06:00 12/29/18 05:22 Zosyn/Ns 4.5gm/100ml IV 200 mls/hr Q8HR [facility] Administration Protocol Sodium Chloride 1,000 mls @ 42 mls/hr 12/28/18 18:00 Nacl 0.9% 1000 Ml IV DIRECT ALESHA Daptomycin 500 mg/ Sodium 100 mls @ 200 mls/hr 12/29/18 14:30 Chloride IV Q24H [facility] Protocol Losartan Potassium 100 mg 12/27/18 10:00 12/29/18 10:00 Cozaar PO Not Given QDAY [facility] Morphine Sulfate 2 mg 12/27/18 02:48 12/27/18 21:10 Morphine IV 2 mg Q4H PRN Administration Pain, Moderate (4-6) Morphine Sulfate 0 mg 12/28/18 18:00 12/28/18 19:50 Morphine Manager Nursing 30mg/30ml IV 1 cartstart DIRECT ALESHA Administration Protocol Naloxone HCl 0.1 mg 12/28/18 17:53 Narcan 0.4 Mg/1 Ml IV Q2MIN PRN Res Rate </= 8 or 02 SAT < 92% Ondansetron HCl 4 mg 12/27/18 02:48 Zofran IV Q8H PRN Nausea And Vomiting Sodium Chloride 10 ml 12/27/18 10:00 12/29/18 12:42 Sodium Chloride Flush Syringe 10 Ml IV Not Given BID ALESHA Sodium Chloride 10 ml 12/27/18 02:48 Sodium Chloride Flush Syringe 10 Ml IV PRN PRN LINE FLUSH
--- NOTE | 2018-12-29 17:49 | XRay Report ---
PROCEDURE: XR CHEST 1V AP TECHNIQUE: Frontal chest x-ray HISTORY: PADMINI picc placement. Pulled picc 3cm out COMPARISONS: Earlier same day FINDINGS: Normal heart size. Right PICC line is present. Since most recent prior exam, it has been retracted. Tip now projects at the superior vena cava/atrial junction, in appropriate position. Lungs are clear and well-expanded. IMPRESSION: Appropriate location of the PICC line tip at the junction of the SVC/right atrium. Clear lungs.. This document is electronically signed by Yolis Alonso MD., December 29 2018 05:47:47 PM ET
[2018-12-29] MEDS: DAPTOmycin 500 MG in NACL 0.9% 100 ML IV SCH (19:47)
[2018-12-29] MEDS: ELIQUIS PO SCH (22:09)
[2018-12-30] MEDS: ZOSYN/NS 4.5GM/100ML 4.5 GM/100 ML VIAL IV SCH ×2 (05:22→14:48)
[2018-12-30] MEDS: SODIUM CHLORIDE FLUSH SYRINGE 10 ML IV PRN ×2 (05:29→06:00)
[2018-12-30] MEDS: SODIUM CHLORIDE FLUSH SYRINGE 10 ML IV SCH ×3 (06:01→22:30)
--- NOTE | 2018-12-30 08:42 | Progress Note ---
Assessment and Plan Assessment and plan: 48-year-old -[place] male presents to ED with fever, postop wound drainage, postop wound pain. On December 15 patient had a aortofemoral bypass, for claudication, occlusion/thrombosis of the infrarenal aorta. The patient postop course was complicated by hypertension, which eventually resolved and he was discharged home on December 19 in stable condition, he was admitted on 12/26 for fever, left groin pain and mohini purulent drainage Sepsis. Status post incision and drainage by vascular surgery. Continue antibiotics per ID, to be discharged with wound VAC Left groin wound/cellulitis. 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 Patient is status post thrombectomy 12/10/18. Cont. eliquis. Vascular surgery consultation pending. Hypertension. Continue antihypertensive medications. Hyperlipidemia. Continue Lipitor. History Interval history: Review of systems Constitutional: No fevers, no malaise, no joint pains CVS: No chest pain, no orthopnea, no dyspnea on exertion, no pedal edema GI: No abdominal pain, no diarrhea, no vomiting, no constipation Respiratory: No shortness of breath, no wheezing, no coughing Hospitalist Physical - Physical exam Narrative exam: General.: Appears well, no distress, nontoxic HEENT: Moist mucous membranes, extraocular muscles intact, no lymphadenopathy Neck: supple Cardiac: S1-S2 heard Lungs: clear to auscultation bilaterally Abdomen: soft , nontender, nondistended, bowel sounds positive Extremities: no edema clubbing or cyanosis Skin: no rash or lesions Neurologic: no gross focal deficits Psych: calm, and cooperative - Constitutional Vitals: Temp Pulse Resp BP Pulse Ox 98.0 F 79 18 107/64 97 12/30/18 07:29 12/30/18 07:00 12/30/18 07:29 12/30/18 07:29 12/30/18 07:00 General appearance: Present: no acute distress Results - Labs CBC & Chem 7: 12/31/18 Unknown 12/29/18 07:38 Labs: Laboratory Last Values WBC 8.1 K/mm3 (4.5-11.0) 12/29/18 07:38 RBC 3.35 M/mm3 (3.65-5.03) L 12/29/18 07:38 Hgb 10.1 gm/dl (11.8-15.2) L 12/29/18 07:38 Hct 29.3 % (35.5-45.6) L 12/29/18 07:38 MCV 87 fl (84-94) 12/29/18 07:38 MCH 30 pg (28-32) 12/29/18 07:38 MCHC 34 % (32-34) 12/29/18 07:38 RDW 14.5 % (13.2-15.2) 12/29/18 07:38 Plt Count 495 K/mm3 (140-440) H 12/29/18 07:38 Lymph % (Auto) 14.2 % (13.4-35.0) 12/28/18 04:15 Gove % (Auto) 6.6 % (0.0-7.3) 12/28/18 04:15 Eos % (Auto) 2.1 % (0.0-4.3) 12/28/18 04:15 Baso % (Auto) 0.9 % (0.0-1.8) 12/28/18 04:15 Lymph # 1.1 K/mm3 (1.2-5.4) L 12/28/18 04:15 Gove # 0.5 K/mm3 (0.0-0.8) 12/28/18 04:15 Eos # 0.2 K/mm3 (0.0-0.4) 12/28/18 04:15 Baso # 0.1 K/mm3 (0.0-0.1) 12/28/18 04:15 Add Manual Diff Complete 12/26/18 20:36 Total Counted 100 12/26/18 20:36 Seg Neutrophils % 76.2 % (40.0-70.0) H 12/28/18 04:15 Seg Neuts % (Manual) 84.0 % (40.0-70.0) H 12/26/18 20:36 Band Neutrophils % 0 % 12/26/18 20:36 Lymphocytes % (Manual) 8.0 % (13.4-35.0) L 12/26/18 20:36 Reactive Lymphs % (Man) 0 % 12/26/18 20:36 Monocytes % (Manual) 7.0 % (0.0-7.3) 12/26/18 20:36 Eosinophils % (Manual) 1.0 % (0.0-4.3) 12/26/18 20:36 Basophils % (Manual) 0 % (0.0-1.8) 12/26/18 20:36 Metamyelocytes % 0 % 12/26/18 20:36 Myelocytes % 0 % 12/26/18 20:36 Promyelocytes % 0 % 12/26/18 20:36 Blast Cells % 0 % 12/26/18 20:36 Nucleated RBC % Not Reportable 12/26/18 20:36 Seg Neutrophils # 6.1 K/mm3 (1.8-7.7) 12/28/18 04:15 Seg Neutrophils # Man 11.2 K/mm3 (1.8-7.7) H 12/26/18 20:36 Band Neutrophils # 0.0 K/mm3 12/26/18 20:36 Lymphocytes # (Manual) 1.1 K/mm3 (1.2-5.4) L 12/26/18 20:36 Abs React Lymphs (Man) 0.0 K/mm3 12/26/18 20:36 Monocytes # (Manual) 0.9 K/mm3 (0.0-0.8) H 12/26/18 20:36 Eosinophils # (Manual) 0.1 K/mm3 (0.0-0.4) 12/26/18 20:36 Basophils # (Manual) 0.0 K/mm3 (0.0-0.1) 12/26/18 20:36 Metamyelocytes # 0.0 K/mm3 12/26/18 20:36 Myelocytes # 0.0 K/mm3 12/26/18 20:36 Promyelocytes # 0.0 K/mm3 12/26/18 20:36 Blast Cells # 0.0 K/mm3 12/26/18 20:36 WBC Morphology Not Reportable 12/26/18 20:36 Hypersegmented Neuts Not Reportable 12/26/18 20:36 Hyposegmented Neuts Not Reportable 12/26/18 20:36 Hypogranular Neuts Not Reportable 12/26/18 20:36 Smudge Cells Not Reportable 12/26/18 20:36 Toxic Granulation Not Reportable 12/26/18 20:36 Toxic Vacuolation Not Reportable 12/26/18 20:36 Dohle Bodies Not Reportable 12/26/18 20:36 Pelger-Huet Anomaly Not Reportable 12/26/18 20:36 Valentín Rods Not Reportable 12/26/18 20:36 Platelet Estimate Appears increased 12/26/18 20:36 Clumped Platelets Not Reportable 12/26/18 20:36 Plt Clumps, EDTA Not Reportable 12/26/18 20:36 Large Platelets Not Reportable 12/26/18 20:36 Giant Platelets Few 12/26/18 20:36 Platelet Satelliting Not Reportable 12/26/18 20:36 Plt Morphology Comment Not Reportable 12/26/18 20:36 RBC Morphology Not Reportable 12/26/18 20:36 Dimorphic RBCs Not Reportable 12/26/18 20:36 Polychromasia Not Reportable 12/26/18 20:36 Hypochromasia Not Reportable 12/26/18 20:36 Poikilocytosis Not Reportable 12/26/18 20:36 Anisocytosis Not Reportable 12/26/18 20:36 Microcytosis Not Reportable 12/26/18 20:36 Macrocytosis Not Reportable 12/26/18 20:36 Spherocytes Not Reportable 12/26/18 20:36 Pappenheimer Bodies Not Reportable 12/26/18 20:36 Sickle Cells Not Reportable 12/26/18 20:36 Target Cells Not Reportable 12/26/18 20:36 Tear Drop Cells Not Reportable 12/26/18 20:36 Ovalocytes 1+ 12/26/18 20:36 Stomatocytes 1+ 12/26/18 20:36 Helmet Cells Not Reportable 12/26/18 20:36 [place] Bodies Not Reportable 12/26/18 20:36 [place] Rings Not Reportable 12/26/18 20:36 Himanshu Cells Not Reportable 12/26/18 20:36 Bite Cells Not Reportable 12/26/18 20:36 Crenated Cell Not Reportable 12/26/18 20:36 Elliptocytes Not Reportable 12/26/18 20:36 Acanthocytes (Spur) Not Reportable 12/26/18 20:36 Rouleaux Not Reportable 12/26/18 20:36 Hemoglobin C Crystals Not Reportable 12/26/18 20:36 Schistocytes Not Reportable 12/26/18 20:36 Malaria parasites Not Reportable 12/26/18 20:36 Hever Bodies Not Reportable 12/26/18 20:36 Hem Pathologist Commnt No 12/26/18 20:36 PT 15.2 Sec. (12.2-14.9) H 12/26/18 20:36 INR 1.13 (0.87-1.13) 12/26/18 20:36 VBG pH 7.441 (7.320-7.420) H 12/26/18 20:36 Sodium 135 mmol/L (137-145) L 12/29/18 07:38 Potassium 4.3 mmol/L (3.6-5.0) 12/29/18 07:38 Chloride 100.0 mmol/L (98-107) 12/29/18 07:38 Carbon Dioxide 26 mmol/L (22-30) 12/29/18 07:38 Anion Gap 13 mmol/L 12/29/18 07:38 BUN 13 mg/dL (9-20) 12/29/18 07:38 Creatinine 0.7 mg/dL (0.8-1.5) L 12/29/18 07:38 Estimated GFR > 60 ml/min 12/29/18 07:38 BUN/Creatinine Ratio 19 % 12/29/18 07:38 Glucose 117 mg/dL (75-100) H 12/29/18 07:38 Lactic Acid 1.20 mmol/L (0.7-2.0) 12/26/18 20:36 Calcium 8.3 mg/dL (8.4-10.2) L 12/29/18 07:38 Total Bilirubin 1.20 mg/dL (0.1-1.2) 12/26/18 20:36 AST 24 units/L (5-40) 12/26/18 20:36 ALT 34 units/L (7-56) 12/26/18 20:36 Alkaline Phosphatase 132 units/L (35-129) H 12/26/18 20:36 Total Creatine Kinase 228 units/L (55-170) H 12/30/18 05:10 Total Protein 7.7 g/dL (6.3-8.2) 12/26/18 20:36 Albumin 3.9 g/dL (3.9-5) 12/26/18 20:36 Albumin/Globulin Ratio 1.0 % 12/26/18 20:36 Urine Color Francesca (Yellow) 12/26/18 21:08 Urine Turbidity Clear (Clear) 12/26/18 21:08 Urine pH 5.0 (5.0-7.0) 12/26/18 21:08 Ur Specific Casco 1.028 (1.003-1.030) 12/26/18 21:08 Urine Protein <15 mg/dl mg/dL (Negative) 12/26/18 21:08 Urine Glucose (UA) Neg mg/dL (Negative) 12/26/18 21:08 Urine Ketones Neg mg/dL (Negative) 12/26/18 21:08 Urine Blood Neg (Negative) 12/26/18 21:08 Urine Nitrite Neg (Negative) 12/26/18 21:08 Urine Bilirubin Neg (Negative) 12/26/18 21:08 Urine Urobilinogen 4.0 mg/dL (<2.0) 12/26/18 21:08 Ur Leukocyte Esterase Tr (Negative) 12/26/18 21:08 Urine WBC (Auto) 13.0 /HPF (0.0-6.0) H 12/26/18 21:08 Urine RBC (Auto) 4.0 /HPF (0.0-6.0) 12/26/18 21:08 U Epithel Cells (Auto) < 1.0 /HPF (0-13.0) 12/26/18 21:08 Urine Mucus 1+ /HPF 12/26/18 21:08 Vancomycin Trough 9.8 ug/mL (5.0-20.0) 12/29/18 08:51
--- NOTE | 2018-12-30 10:59 | Progress Note ---
Assessment and Plan Cultures: 12/26/2018 Blood Culture: No growth at 48 hours 12/26/2018 wound culture: MRSA 12/26/2018 urine culture: mixed growth 12/28/2018 surgical culture: Staph Aureus A/P: 48/M with peripheral vascular diease, HLD, HTN admitted with: 1) Left groin wound infection in the setting of a recent aortobifemoral bypass graft surgery with Dacron graft: now s/p I&D and sartorius muscle flap. Op note reviewed, possible deeper connection with infection. Culture growing MRSA which is likely to have seeded the graft since it is a highly invasive organism. Hence, would treat with 6 weeks of IV antibiotics followed by PO suppression to reduce risk of relapse. Patient is on losartan and hydrochlorothiazide as an outpatient. Would prefer to use daptomycin to minimize risk of nephrotoxicity. Recs: Discontinue Zosyn Started IV daptomycin 500 mg every 24 hours Check baseline CK and then weekly thereafter Anticipate discharge on Daptomycin 500mg every 24 hours for total 6 weeks ending 02-08-19 f/u ID office 01-18-19 [facility] to be set up with case management Brooke Warren NP [facility] M: [phone] O:[phone] Subjective Date of service: 12/30/18 Interval history: Patient seen and examined. No generalized pain, weakness or SOB. No fevers. OPAT discussed, verbalized understanding. Objective - Exam Narrative Exam: Constitutional: Alert, cooperative. No acute distress Head, Ears, Nose: Normocephalic, atraumatic. External ears, nose normal Eyes: Conjunctivae/corneas clear. No icterus. No ptosis. Neck: Supple, no meningeal signs Oral: no thrush Cardiovascular: S1, S2 normal. Respiratory: Good air entry, clear to auscultation bilaterally GI: Soft, non-tender; bowel sounds normal. No peritoneal signs. Midline abdominal wound with jackson, right groin wound intact, left groin with woundVAC + Musculoskeletal: No pedal edema, no cyanosis. Skin: No rash or abscess Hem/Lymphatic: No palpable cervical or supraclavicular nodes. No lymphangitis Psych: Mood ok. Affect normal Neurological: Awake, alert, oriented. No gross abnormality - Constitutional Vitals: Vital Signs Temp Pulse Resp BP Pulse Ox 98.0 F 79 18 107/64 97 12/30/18 07:29 12/30/18 07:00 12/30/18 07:29 12/30/18 07:29 12/30/18 07:00 Temperature -Last 24 Hours Temperature 98.0 F Temperature 98 F Temperature 98.0 F Temperature 98.2 F Temperature 98.3 F Temperature 98.3 F - Labs CBC & Chem 7: 12/29/18 07:38 12/29/18 07:38 Labs: Abnormal lab results 12/30/18 Range/Units 05:10 Total Creatine Kinase 228 H (55-170) units/L
[2018-12-30] MEDS: COZAAR PO SCH (11:30)
[2018-12-30] MEDS: ELIQUIS PO SCH ×2 (11:30→22:29)
[2018-12-30] MEDS: HCTZ PO SCH (11:31)
[2018-12-30] MEDS: ASPIRIN PO SCH (11:31)
[2018-12-30] MEDS: DAPTOmycin 500 MG in NACL 0.9% 100 ML IV SCH (15:04)
[2018-12-30] MEDS ORDERED: NACL 0.9% 500 ML 500 ML IV SCH (16:00)
--- NOTE | 2018-12-30 17:49 | Progress Note ---
Assessment and Plan Pt s/p Aorta Bifem bypass with post op left groin abscess. S/p I&D with wash out and muscle flap coverage. Wound vac in place for vac change tomorrow. Pt will need prolong abx treatment, per ID recommendations. - Patient Problems (1) Abscess of left groin Current Visit: Yes Status: Acute (2) Status post aortic bifurcation bypass graft Current Visit: Yes Status: Acute (3) PAD (peripheral artery disease) Current Visit: No Status: Chronic (4) HTN (hypertension) Current Visit: No Status: Chronic (5) Hyperlipidemia Current Visit: No Status: Chronic (6) Tobacco use Current Visit: No Status: Chronic (7) Nicotine dependence Current Visit: No Status: Acute Qualifiers: Nicotine product type: cigarettes Substance use status: in withdrawal Qualified Code(s): F17.213 - Nicotine dependence, cigarettes, with withdrawal Subjective Date of service: 12/30/18 Interval history: Pt awake and alert without complaint at present. Objective - Constitutional Vitals: Vital Signs - 12hr 12/30/18 12/30/18 12/30/18 07:00 07:29 10:00 Temperature 98 F 98.0 F Pulse Rate 79 Respiratory 18 18 Rate Blood Pressure 107/64 Blood Pressure 107/64 [Left] O2 Sat by Pulse 97 99 Oximetry 12/30/18 12/30/18 11:16 12:00 Temperature 97.9 F 97.9 F Pulse Rate 85 Respiratory 18 18 Rate Blood Pressure 123/79 Blood Pressure 123/79 [Left] O2 Sat by Pulse Oximetry General appearance: Present: no acute distress - EENT Eyes: EOM intact ENT: hearing intact - Respiratory Respiratory effort: normal Extremities: no ischemia, abnormal (left groin vac in place.) - Neurologic Neurologic: no focal deficits - Psychiatric Psychiatric: appropriate mood/affect, intact judgment & insight, cooperative - Labs CBC & Chem 7: 12/29/18 07:38 12/29/18 07:38 Labs: Abnormal lab results 12/30/18 Range/Units 05:10 Total Creatine Kinase 228 H (55-170) units/L Medications & Allergies - Medications Allergies/Adverse Reactions: Allergies No Known Allergies Allergy (Verified 12/10/18 07:59) Home Medications: Home Medications Medication Instructions Recorded Confirmed Last Taken Type AtorvaSTATin [Lipitor] 40 mg PO QHS 12/10/18 12/26/18 12/09/18 History Losartan/Hydrochlorothiazide 1 each PO QDAY 12/10/18 12/26/18 12/09/18 History [Hyzaar 100-12.5 TAB] Potassium Chloride [K-Dur] 20 meq PO QDAY 3 Days #3 tablet 12/19/18 12/26/18 Unknown Rx oxyCODONE /ACETAMINOPHEN [Percocet 1 tab PO Q6H PRN #15 tablet 12/19/18 12/26/18 Unknown Rx 5/325 mg] Apixaban [Eliquis] 5 mg PO Q12H 12/26/18 12/26/18 Unknown History Aspirin 325 mg PO QDAY 12/26/18 12/26/18 Unknown History Active Medications: Generic Name Dose Route Start Last Admin Trade Name Freq PRN Reason Stop Dose Admin Acetaminophen 650 mg 12/27/18 02:48 Tylenol PO Q4H PRN Pain MILD(1-3)/Fever >100.5/LUGO Acetaminophen/Hydrocodone Bitart 2 each 12/28/18 18:18 [place] 5/325 PO Q6H PRN Pain, Moderate (4-6) Apixaban 5 mg 12/29/18 22:00 12/30/18 11:30 Eliquis PO 5 mg Q12HR ALESHA Administration Protocol Aspirin 325 mg 12/27/18 10:00 12/30/18 11:31 Aspirin PO 325 mg QDAY ALESHA Administration Atorvastatin Calcium 40 mg 12/27/18 22:00 12/29/18 22:09 Lipitor PO 40 mg QHS ALESHA Administration Hydrochlorothiazide 12.5 mg 12/27/18 10:00 12/30/18 11:31 Hctz PO 12.5 mg QDAY ALESHA Administration Hydromorphone HCl 0.5 mg 12/28/18 18:24 12/28/18 18:10 Dilaudid IV 0.5 mg Q10M PRN Administration Pain , Severe (7-10) Daptomycin 500 mg/ Sodium 100 mls @ 200 mls/hr 12/29/18 14:30 12/30/18 15:04 Chloride IV 200 mls/hr Q24H ALESHA Administration Protocol Sodium Chloride 500 mls @ 50 mls/hr 12/30/18 16:00 Nacl 0.9% 500 Ml IV DIRECT ALESHA Losartan Potassium 100 mg 12/27/18 10:00 12/30/18 11:30 Cozaar PO 100 mg QDAY ALESHA Administration Morphine Sulfate 2 mg 12/27/18 02:48 12/27/18 21:10 Morphine IV 2 mg Q4H PRN Administration Pain, Moderate (4-6) Morphine Sulfate 0 mg 12/28/18 18:00 12/28/18 19:50 Morphine Machine Setter 30mg/30ml IV 1 cartstart DIRECT ALESHA Administration Protocol Naloxone HCl 0.1 mg 12/28/18 17:53 Narcan 0.4 Mg/1 Ml IV Q2MIN PRN Res Rate </= 8 or 02 SAT < 92% Ondansetron HCl 4 mg 12/27/18 02:48 Zofran IV Q8H PRN Nausea And Vomiting Sodium Chloride 10 ml 12/27/18 10:00 12/30/18 14:53 Sodium Chloride Flush Syringe 10 Ml IV Not Given BID ALESHA Sodium Chloride 10 ml 12/27/18 02:48 12/30/18 06:00 Sodium Chloride Flush Syringe 10 Ml IV 10 ml PRN PRN Administration LINE FLUSH
[2018-12-31] MEDS: SODIUM CHLORIDE FLUSH SYRINGE 10 ML IV SCH (10:04)
[2018-12-31] MEDS: ASPIRIN PO SCH (11:02)
[2018-12-31] MEDS: HCTZ PO SCH (11:02)
[2018-12-31] MEDS: ELIQUIS PO SCH (11:02)
[2018-12-31] MEDS: COZAAR PO SCH (11:02)
--- NOTE | 2018-12-31 11:10 | Progress Note ---
Assessment and Plan Cultures: 12/26/2018 Blood Culture: No growth at 48 hours 12/26/2018 wound culture: MRSA 12/26/2018 urine culture: mixed growth 12/28/2018 surgical culture: MRSA A/P: 48/M with peripheral vascular diease, HLD, HTN admitted with: 1) Left groin wound infection in the setting of a recent aortobifemoral bypass graft surgery with Dacron graft: now s/p I&D and sartorius muscle flap. Op note reviewed, possible deeper connection with infection. Culture growing MRSA which is likely to have seeded the graft since it is a highly invasive organism. Hence, would treat with 6 weeks of IV antibiotics followed by PO suppression to reduce risk of relapse. Patient is on losartan and hydrochlorothiazide as an outpatient. Would prefer to use daptomycin to minimize risk of nephrotoxicity. Recs: Continue IV daptomycin 500 mg every 24 hours, D3 Check CK weekly Anticipate discharge on Daptomycin 500mg every 24 hours for total 6 weeks ending 02-08-19 f/u ID office 01-18-19 [facility] [place] [facility] to be set up with [facility] M: [phone] O:[phone] Subjective Date of service: 12/31/18 Interval history: Patient seen and examined. No generalized pain, weakness or SOB. No fevers. OPAT discussed, verbalized understanding. Objective - Exam Narrative Exam: Constitutional: Alert, cooperative. No acute distress Head, Ears, Nose: Normocephalic, atraumatic. External ears, nose normal Eyes: Conjunctivae/corneas clear. No icterus. No ptosis. Neck: Supple, no meningeal signs Oral: no thrush Cardiovascular: S1, S2 normal. Respiratory: Good air entry, clear to auscultation bilaterally GI: Soft, non-tender; bowel sounds normal. No peritoneal signs. Midline abdominal wound with jackson, right groin wound intact, left groin with woundVAC + Musculoskeletal: No pedal edema, no cyanosis. Skin: No rash or abscess Hem/Lymphatic: No palpable cervical or supraclavicular nodes. No lymphangitis Psych: Mood ok. Affect normal Neurological: Awake, alert, oriented. No gross abnormality - Constitutional Vitals: Vital Signs Temp Pulse Resp BP Pulse Ox 98.5 F 73 18 121/76 99 12/31/18 06:19 12/31/18 11:02 12/31/18 07:51 12/31/18 11:02 12/31/18 07:51 Temperature -Last 24 Hours Temperature 98.5 F Temperature 98.4 F Temperature 98.1 F Temperature 97.3 F Temperature 97.9 F Temperature 97.9 F - Labs CBC & Chem 7: 12/31/18 Unknown 12/29/18 07:38
[2018-12-31 12:43] LABS: Basophils # (Auto) 0.1 K/mm3 (0.0-0.1); Basophils % (Auto) 1.3 % (0.0-1.8); Eosinophils # (Auto) 0.2 K/mm3 (0.0-0.4); Eosinophils % (Auto) 3.5 % (0.0-4.3); Hematocrit 31.3 % (35.5-45.6); Hemoglobin 10.4 gm/dl (11.8-15.2); Lymphocytes # (Auto) 1.9 K/mm3 (1.2-5.4); Lymphocytes % (Auto) 28.2 % (13.4-35.0); Mean Corpuscular HGB Conc 33 % (32-34); Mean Corpuscular Volume 89 fl (84-94); Monocytes # (Auto) 0.6 K/mm3 (0.0-0.8); Platelet Count 497 K/mm3 (140-440)
[2018-12-31] MEDS: DAPTOmycin 500 MG in NACL 0.9% 100 ML IV SCH (14:20)
--- NOTE | 2018-12-31 14:21 | Progress Note ---
Assessment and Plan Assessment and plan: 48-year-old -Burm[place] male presents to ED with fever, postop wound drainage, postop wound pain. On December 15 patient had a aortofemoral bypass, for claudication, occlusion/thrombosis of the infrarenal aorta. The patient postop course was complicated by hypertension, which eventually resolved and he was discharged home on December 19 in stable condition, he was admitted on 12/26 for fever, left groin pain and mohini purulent drainage Sepsis. Status post incision and drainage by vascular surgery. Continue antibiotics per ID, to be discharged with wound VAC Left groin wound/cellulitis. 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 Patient is status post thrombectomy 12/10/18. Cont. eliquis. Vascular surgery consultation pending. Hypertension. Continue antihypertensive medications. Hyperlipidemia. Continue Lipitor. History Interval history: Review of systems Constitutional: No fevers, no malaise, no joint pains CVS: No chest pain, no orthopnea, no dyspnea on exertion, no pedal edema GI: No abdominal pain, no diarrhea, no vomiting, no constipation Respiratory: No shortness of breath, no wheezing, no coughing Hospitalist Physical - Physical exam Narrative exam: General.: Appears well, no distress, nontoxic HEENT: Moist mucous membranes, extraocular muscles intact, no lymphadenopathy Neck: supple Cardiac: S1-S2 heard Lungs: clear to auscultation bilaterally Abdomen: soft , nontender, nondistended, bowel sounds positive Extremities: no edema clubbing or cyanosis Skin: no rash or lesions Neurologic: no gross focal deficits Psych: calm, and cooperative - Constitutional Vitals: Temp Pulse Resp BP Pulse Ox 98.7 F 75 19 123/75 98 12/31/18 13:51 12/31/18 13:51 12/31/18 13:51 12/31/18 13:51 12/31/18 13:51 General appearance: Present: no acute distress Results - Labs CBC & Chem 7: 12/31/18 Unknown 12/29/18 07:38 Labs: Laboratory Last Values WBC 6.9 K/mm3 (4.5-11.0) 12/31/18 Unknown RBC 3.50 M/mm3 (3.65-5.03) L 12/31/18 Unknown Hgb 10.4 gm/dl (11.8-15.2) L 12/31/18 Unknown Hct 31.3 % (35.5-45.6) L 12/31/18 Unknown MCV 89 fl (84-94) 12/31/18 Unknown MCH 30 pg (28-32) 12/31/18 Unknown MCHC 33 % (32-34) 12/31/18 Unknown RDW 15.0 % (13.2-15.2) 12/31/18 Unknown Plt Count 497 K/mm3 (140-440) H 12/31/18 Unknown Lymph % (Auto) 28.2 % (13.4-35.0) 12/31/18 Unknown [place] % (Auto) 8.0 % (0.0-7.3) H 12/31/18 Unknown Eos % (Auto) 3.5 % (0.0-4.3) 12/31/18 Unknown Baso % (Auto) 1.3 % (0.0-1.8) 12/31/18 Unknown Lymph # 1.9 K/mm3 (1.2-5.4) 12/31/18 Unknown [place] # 0.6 K/mm3 (0.0-0.8) 12/31/18 Unknown Eos # 0.2 K/mm3 (0.0-0.4) 12/31/18 Unknown Baso # 0.1 K/mm3 (0.0-0.1) 12/31/18 Unknown Add Manual Diff Complete 12/26/18 20:36 Total Counted 100 12/26/18 20:36 Seg Neutrophils % 59.0 % (40.0-70.0) 12/31/18 Unknown Seg Neuts % (Manual) 84.0 % (40.0-70.0) H 12/26/18 20:36 Band Neutrophils % 0 % 12/26/18 20:36 Lymphocytes % (Manual) 8.0 % (13.4-35.0) L 12/26/18 20:36 Reactive Lymphs % (Man) 0 % 12/26/18 20:36 Monocytes % (Manual) 7.0 % (0.0-7.3) 12/26/18 20:36 Eosinophils % (Manual) 1.0 % (0.0-4.3) 12/26/18 20:36 Basophils % (Manual) 0 % (0.0-1.8) 12/26/18 20:36 Metamyelocytes % 0 % 12/26/18 20:36 Myelocytes % 0 % 12/26/18 20:36 Promyelocytes % 0 % 12/26/18 20:36 Blast Cells % 0 % 12/26/18 20:36 Nucleated RBC % Not Reportable 12/26/18 20:36 Seg Neutrophils # 4.1 K/mm3 (1.8-7.7) 12/31/18 Unknown Seg Neutrophils # Man 11.2 K/mm3 (1.8-7.7) H 12/26/18 20:36 Band Neutrophils # 0.0 K/mm3 12/26/18 20:36 Lymphocytes # (Manual) 1.1 K/mm3 (1.2-5.4) L 12/26/18 20:36 Abs React Lymphs (Man) 0.0 K/mm3 12/26/18 20:36 Monocytes # (Manual) 0.9 K/mm3 (0.0-0.8) H 12/26/18 20:36 Eosinophils # (Manual) 0.1 K/mm3 (0.0-0.4) 12/26/18 20:36 Basophils # (Manual) 0.0 K/mm3 (0.0-0.1) 12/26/18 20:36 Metamyelocytes # 0.0 K/mm3 12/26/18 20:36 Myelocytes # 0.0 K/mm3 12/26/18 20:36 Promyelocytes # 0.0 K/mm3 12/26/18 20:36 Blast Cells # 0.0 K/mm3 12/26/18 20:36 WBC Morphology Not Reportable 12/26/18 20:36 Hypersegmented Neuts Not Reportable 12/26/18 20:36 Hyposegmented Neuts Not Reportable 12/26/18 20:36 Hypogranular Neuts Not Reportable 12/26/18 20:36 Smudge Cells Not Reportable 12/26/18 20:36 Toxic Granulation Not Reportable 12/26/18 20:36 Toxic Vacuolation Not Reportable 12/26/18 20:36 Dohle Bodies Not Reportable 12/26/18 20:36 Pelger-Huet Anomaly Not Reportable 12/26/18 20:36 Valentín Rods Not Reportable 12/26/18 20:36 Platelet Estimate Appears increased 12/26/18 20:36 Clumped Platelets Not Reportable 12/26/18 20:36 Plt Clumps, EDTA Not Reportable 12/26/18 20:36 Large Platelets Not Reportable 12/26/18 20:36 Giant Platelets Few 12/26/18 20:36 Platelet Satelliting Not Reportable 12/26/18 20:36 Plt Morphology Comment Not Reportable 12/26/18 20:36 RBC Morphology Not Reportable 12/26/18 20:36 Dimorphic RBCs Not Reportable 12/26/18 20:36 Polychromasia Not Reportable 12/26/18 20:36 Hypochromasia Not Reportable 12/26/18 20:36 Poikilocytosis Not Reportable 12/26/18 20:36 Anisocytosis Not Reportable 12/26/18 20:36 Microcytosis Not Reportable 12/26/18 20:36 Macrocytosis Not Reportable 12/26/18 20:36 Spherocytes Not Reportable 12/26/18 20:36 Pappenheimer Bodies Not Reportable 12/26/18 20:36 Sickle Cells Not Reportable 12/26/18 20:36 Target Cells Not Reportable 12/26/18 20:36 Tear Drop Cells Not Reportable 12/26/18 20:36 Ovalocytes 1+ 12/26/18 20:36 Stomatocytes 1+ 12/26/18 20:36 Helmet Cells Not Reportable 12/26/18 20:36 [place] Bodies Not Reportable 12/26/18 20:36 [place] Rings Not Reportable 12/26/18 20:36 Himanshu Cells Not Reportable 12/26/18 20:36 Bite Cells Not Reportable 12/26/18 20:36 Crenated Cell Not Reportable 12/26/18 20:36 Elliptocytes Not Reportable 12/26/18 20:36 Acanthocytes (Spur) Not Reportable 12/26/18 20:36 Rouleaux Not Reportable 12/26/18 20:36 Hemoglobin C Crystals Not Reportable 12/26/18 20:36 Schistocytes Not Reportable 12/26/18 20:36 Malaria parasites Not Reportable 12/26/18 20:36 Hever Bodies Not Reportable 12/26/18 20:36 Hem Pathologist Commnt No 12/26/18 20:36 PT 15.2 Sec. (12.2-14.9) H 12/26/18 20:36 INR 1.13 (0.87-1.13) 12/26/18 20:36 VBG pH 7.441 (7.320-7.420) H 12/26/18 20:36 Sodium 135 mmol/L (137-145) L 12/29/18 07:38 Potassium 4.3 mmol/L (3.6-5.0) 12/29/18 07:38 Chloride 100.0 mmol/L (98-107) 12/29/18 07:38 Carbon Dioxide 26 mmol/L (22-30) 12/29/18 07:38 Anion Gap 13 mmol/L 12/29/18 07:38 BUN 13 mg/dL (9-20) 12/29/18 07:38 Creatinine 0.7 mg/dL (0.8-1.5) L 12/29/18 07:38 Estimated GFR > 60 ml/min 12/29/18 07:38 BUN/Creatinine Ratio 19 % 12/29/18 07:38 Glucose 117 mg/dL (75-100) H 12/29/18 07:38 Lactic Acid 1.20 mmol/L (0.7-2.0) 12/26/18 20:36 Calcium 8.3 mg/dL (8.4-10.2) L 12/29/18 07:38 Total Bilirubin 1.20 mg/dL (0.1-1.2) 12/26/18 20:36 AST 24 units/L (5-40) 12/26/18 20:36 ALT 34 units/L (7-56) 12/26/18 20:36 Alkaline Phosphatase 132 units/L (35-129) H 12/26/18 20:36 Total Creatine Kinase 228 units/L (55-170) H 12/30/18 05:10 Total Protein 7.7 g/dL (6.3-8.2) 12/26/18 20:36 Albumin 3.9 g/dL (3.9-5) 12/26/18 20:36 Albumin/Globulin Ratio 1.0 % 12/26/18 20:36 Urine Color Francesca (Yellow) 12/26/18 21:08 Urine Turbidity Clear (Clear) 12/26/18 21:08 Urine pH 5.0 (5.0-7.0) 12/26/18 21:08 Ur Specific [place] 1.028 (1.003-1.030) 12/26/18 21:08 Urine Protein <15 mg/dl mg/dL (Negative) 12/26/18 21:08 Urine Glucose (UA) Neg mg/dL (Negative) 12/26/18 21:08 Urine Ketones Neg mg/dL (Negative) 12/26/18 21:08 Urine Blood Neg (Negative) 12/26/18 21:08 Urine Nitrite Neg (Negative) 12/26/18 21:08 Urine Bilirubin Neg (Negative) 12/26/18 21:08 Urine Urobilinogen 4.0 mg/dL (<2.0) 12/26/18 21:08 Ur Leukocyte Esterase Tr (Negative) 12/26/18 21:08 Urine WBC (Auto) 13.0 /HPF (0.0-6.0) H 12/26/18 21:08 Urine RBC (Auto) 4.0 /HPF (0.0-6.0) 12/26/18 21:08 U Epithel Cells (Auto) < 1.0 /HPF (0-13.0) 12/26/18 21:08 Urine Mucus 1+ /HPF 12/26/18 21:08 Vancomycin Trough 9.8 ug/mL (5.0-20.0) 12/29/18 08:51 Nutrition/Malnutrition Assess - Dietary Evaluation Nutrition/Malnutrition Findings: Nutrition Notes Start: 12/31/18 10:22 Freq: Status: Active Protocol: Document 12/31/18 10:22 TW (Rec: 12/31/18 10:24 TW [email or web address]) Co-Sign 12/31/18 10:22 LP Nutrition Notes Need for Assessment generated from: LOS Initial or Follow up Brief Note Current Diagnosis Sepsis,Hypertension, Hyperlipidemia Other Pertinent Diagnosis Nicotine dependence Current Diet Cardiac Labs/Tests Na: 135 Cr: 0.7 Pertinent Medications Reviewed. Height 5 ft 8 in Weight 66.8 kg [place] Body Weight (kg) 70.00 BMI 22.4 Subjective/Other Information Screened for LOS. Pt asleep at time of visit. Observed tray completely eaten. Per RN, pt is eating most of his food and has a good appetite. Nutrition Intervention Revisit per MD consult or patient Sign Off request:
--- NOTE | 2018-12-31 15:33 | Discharge Summary ---
Providers - Providers Date of Admission: 12/26/18 22:07 Attending physician: CHAITANYA THORNTON MD 12/27/18 01:53 Consult to Physician [CONS] Routine Comment: Consulting Provider: QUAN ANDERSON Physician Instructions: Reason For Exam: right raphael incesion infection 12/28/18 11:20 Consult to Physician [CONS] Routine Comment: Consulting Provider: MARCUS JONES Physician Instructions: Reason For Exam: groin cellulitis 12/28/18 17:55 Consult to Case Management [CONS] Routine Services Needed at Discharge: Wound Vac Notified:: cm notified Consult to Wound/ET Nurse [CONS] Routine Reason For Exam: Left groin wound vac placed intra op 12/29/18 13:33 Consult to PICC Line RN [CONS] Urgent Reason For Exam: PICC line. IV abx Type Line:: PICC 12/31/18 14:53 Consult to Case Management [CONS] Urgent Services Needed at Discharge: Wound Vac Home Health Services Notified:: yes Additional Physician Instructions: [facility] ([facility]) M [phone] O [phone] F [phone] OUTPATIENT PARENTERAL ANTIBIOTIC THERAPY ORDERS Antibiotics set up with [facility] Diagnoses: Left groin wound infection in the setting of a recent aortobifemoral bypass graft surgery with Dacron graft: Antimicrobial administration: Anticipate discharge on Daptomycin 500mg every 24 hours for total 6 weeks ending 02-08-19 f/u ID office 01-18-19 Home health to be set up with [facility] for antibiotic teach and train and wound care. Remove PICC line after last dose unless otherwise instructed. Lines: PICC Lab monitoring: CBC, BUN, Creatinine, ALT, AST, CK, once a week preferly on Thursday morning. Please fax results to [phone] and call [phone] for critical lab results. Brooke Warren NP/Chandler Jones MD Date: 12/31/18 Primary care physician: CHEMISTRY TECHNICIAN Hospitalization Condition: Stable Hospital course: 48-year-old -[place]iss male presents to ED with fever, postop wound drainage, postop wound pain. On December 15 patient had a aortofemoral bypass, for claudication, occlusion/thrombosis of the infrarenal aorta. The patient postop course was complicated by hypertension, which eventually resolved and he was discharged home on December 19 in stable condition, he was admitted on 12/26 for fever, left groin pain and mohini purulent drainage The patient presented with purulent drainage from his groin. He was found to have MRSA abscess. He received I&D. His antibiotics are managed per infectious disease. He is being discharged on IV antibiotics and a wound VAC. Diagnosis Sepsis Left groin abscess due to MRSA History of lower extremity ischemia secondary to leg thrombosis, status post thrombectomy 12/10 History of infrarenal aortic thrombosis, status post aortofemoral bypass Hyperlipidemia Hypertension Disposition: DC/TX- HOME UNDER HOME HLTH Time spent for discharge: 33 mins Core Measure Documentation - Palliative Care Palliative Care/ Comfort Measures: Not Applicable - Core Measures Any of the following diagnoses?: none Exam - Constitutional Vitals: Temp Pulse Resp BP Pulse Ox 98.7 F 75 19 123/75 98 12/31/18 13:51 12/31/18 13:51 12/31/18 13:51 12/31/18 13:51 12/31/18 13:51 General appearance: Present: no acute distress, well-nourished - EENT Eyes: Present: PERRL ENT: hearing intact, clear oral mucosa - Neck Neck: Present: supple, normal ROM - Respiratory Respiratory effort: normal Respiratory: bilateral: CTA - Cardiovascular Heart Sounds: Present: S1 & S2. Absent: rub, click - Extremities Extremities: pulses symmetrical, No edema Peripheral Pulses: within normal limits - Abdominal General gastrointestinal: Present: soft, non-tender, non-distended, normal bowel sounds Male genitourinary: Present: normal - Integumentary Integumentary: Present: clear, warm, dry - Musculoskeletal Musculoskeletal: gait normal, strength equal bilaterally - Psychiatric Psychiatric: appropriate mood/affect, intact judgment & insight - Neurologic Neurologic: CNII-XII intact, moves all extremities Plan Follow up with: PRIMARY CARE, [Primary Care Provider] - 3-5 Days Prescriptions: HYDROcodone/APAP 5-325 [[place] 5-325 mg TAB] 2 each PO Q6H PRN #30 tablet PRN Reason: Pain, Moderate (4-6)
--- NOTE | 2018-12-31 16:34 | Event Note ---
Date: 12/31/18 Preparing patient for discharge. He is stable for discharge once his wound VAC has been arranged for at home.
[2018-12-31 23:37] VITALS: BP 129/82
== END 2018-12-31 21:30 | disposition home health service (06) | DRG 856 ==
LOC: ED 20:14 → 3B-SURG 22:07
PROVIDERS: ADMIT Internal Medicine; ATTEND Internal Medicine
PROC: 0JDM0ZZ Extraction of Left Upper Leg Subcutaneous Tissue and Fascia, Open Approach (ICD-10-PCS; principal; 2018-12-28)
PROC: 0KXR0ZZ Transfer Left Upper Leg Muscle, Open Approach (ICD-10-PCS; 2018-12-28)
PROC: 0JCM0ZZ Extirpation of Matter from Left Upper Leg Subcutaneous Tissue and Fascia, Open Approach (ICD-10-PCS; 2018-12-28)
PROC: 02H633Z Insertion of Infusion Device into Right Atrium, Percutaneous Approach (ICD-10-PCS; 2018-12-29)
DX: T81.49XA Infection following a procedure, other surgical site, initial encounter (principal); A41.02 Sepsis due to Methicillin resistant Staphylococcus aureus; L03.116 Cellulitis of left lower limb; L02.214 Cutaneous abscess of groin; F17.213 Nicotine dependence, cigarettes, with withdrawal; T81.44XA Sepsis following a procedure, initial encounter; I10 Essential (primary) hypertension; Y83.2 Surgical operation with anastomosis, bypass or graft as the cause of abnormal reaction of the patient, or of later complication, without mention of misadventure at the time of the procedure; I73.9 Peripheral vascular disease, unspecified; E78.5 Hyperlipidemia, unspecified; Z79.82 Long term (current) use of aspirin; Z79.899 Other long term (current) drug therapy; Z86.718 Personal history of other venous thrombosis and embolism; Y92.89 Other specified places as the place of occurrence of the external cause
CPT/HCPCS: 36415; 71045; 74174; 80048; 80053; 80202; 81001; 82140; 82550; 82805; 85007; 85025; 85027; 85610; 87040; 87075; 87076; 87086; 87116; 87186; 93005; 93010; G0378; A9270-GY; J0690; J0696; J0878; J1100; J1170; J1885; J2250; J2270; J2370; J2405; J2543; J2704; J3010; J3370; J7030; J7040; J7050; J7120; Q9967